=== PATIENT | female | born 1975 | race Caucasian/White ===

== ENCOUNTER 2020-05-08 06:06 | Day surgery (SDC) | payer OTHER, SELFPAY ==
[2020-05-01 20:06] VITALS: BMI 32.0
--- NOTE | 2020-05-05 11:09 | P.CONAN_ITS ---
Documented by User: Esther Alamo 05/05/20 11:10 HPI - Anesthesia Eval Consult details Narrative: 44yo F for donna lopez [facility] Past Medical History Medical History GERD (gastroesophageal reflux disease) Hypertension Rheumatoid arthritis Surgical History Surgical History deliv NOS-unsp History of lumpectomy of right breast Social History Social History Smoking Status: Never smoker Second Hand Smoke Exposure: No Use of substances other than those prescribed or required for medical reasons: No Advance Directives: No Advance Directives Information Provided: No Advance Directives on File: No Recently lost weight without trying: No Meds Allergies Allergy/AdvReac Type Severity Reaction Status Date / Time No Known Allergies Allergy Verified 05/01/20 20:04 Home Medications Medication Instructions Recorded Confirmed Type cholecalciferol (vitamin D3) 1 cap PO BEDTIME 05/01/20 05/01/20 History etanercept [Enbrel SureClick] 1 syringe SUBCUT QWEEK 05/01/20 05/01/20 History ferrous sulfate 1 tab PO DAILY 05/01/20 05/01/20 History lisinopril 1 tab PO DAILY 05/01/20 05/01/20 History Exam Exam Date and Time: May 05, 2020 1109 Height,Weight and Vital Signs: Height 5 ft 2 in Weight 79.379 kg Pertinent Lab Results Pertinent Lab Results: Laboratory Tests 02/07/20 02/07/20 08:08 08:08 WBC 7.2 Hgb 12.4 Hct 38.6 Plt Count 389 Sodium 138 Potassium 4.1 Chloride 104 BUN 11 Creatinine 0.74 Assessment and Plan Assessment Anesthesia Assessment: Chart Reviewed Documented by User: John Humphreys 05/08/20 07:24 [facility] Past Medical History Medical History GERD (gastroesophageal reflux disease) Hypertension Rheumatoid arthritis Surgical History Surgical History deliv NOS-unsp History of lumpectomy of right breast Social History Social History Smoking Status: Never smoker Second Hand Smoke Exposure: No Use of substances other than those prescribed or required for medical reasons: No Advance Directives: No Advance Directives Information Provided: No Advance Directives on File: No Recently lost weight without trying: No Meds Allergies Allergy/AdvReac Type Severity Reaction Status Date / Time No Known Allergies Allergy Verified 05/01/20 20:04 Home Medications Medication Instructions Recorded Confirmed Type cholecalciferol (vitamin D3) 1 cap PO BEDTIME 05/01/20 05/01/20 History etanercept [Enbrel SureClick] 1 syringe SUBCUT QWEEK 05/01/20 05/01/20 History ferrous sulfate 1 tab PO DAILY 05/01/20 05/01/20 History lisinopril 1 tab PO DAILY 05/01/20 05/01/20 History Exam Airway Mallampati Class: III TM Dist: >3cm Neck ROM: Full Heart: RRR Assessment and Plan Assessment Anesthesia Assessment: Anesthesia Plan Discussed Final Anesthetic Review NPO: Yes (Except meds) ASA Class: II Final Preanesthetic Review: Consent Obtained/Reviewed Anesthetic Plan Anesthetic Plan: GA Disposition: Standard PACU
[2020-05-08] VITALS (10 sets, daily range): BP systolic 120–150; BP diastolic 72–97; PULSE 79–98; RESP 16–18; TEMP 36.8–37; O2SAT 96–99
[2020-05-08 06:37] LABS: UPreg QC Valid YES; Urine Pregnancy NEGATIVE (NEGATIVE)
[2020-05-08] MEDS: Lactated Ringers 1,000 ML 100 ML IVCONT (06:49)
[2020-05-08] MEDS: Acetaminophen 325 MG TABLET 650 MG PO (06:50)
--- NOTE | 2020-05-08 07:13 | MHC.SHP ---
Pre-Procedural Eval Section A The patient is an INPATIENT: No Changes since office visit: No Cold of Flu in the past 2 weeks and No New Medical Problems The History & Physical has been completed within 30 days and I have reviewed it.: No Section B Chief Complaint: CHRONIC CHOLECYSTITIS Details of Present Illness: Abdominal pain in the right upper quadrant, heartburn; gallstones by ultrasound Relevant Family History (Specify if Yes): No Relevant Social History: None Present Medications: see Short Stay Collaborative assessment Medical History: No relevant PMH History of Previous Operations: No relevant previous surgery Allergies: Allergies Allergy/AdvReac Type Severity Reaction Status Date / Time No Known Allergies Allergy Verified 05/01/20 20:04 Review of Systems Sugical H&P ROS: Negative: Constitution, Cardiovascular, Respiratory, Neurological, Psychiatric, Genitourinary, Musculoskeletal, Integumentary and Endocrine and Yes, Specify: Gastrointestinal (abdominal pain) Exam Surgical H&P Exam: Normal: HEENT, Normal: Heart, Normal: Lungs, Normal: Extremities, Normal: Abdomen, Normal: Skin and Normal: Neurological Plan Diagnosis/Plan: Unchanged Patient has been examined and remains a candidate for the planned procedure
--- NOTE | 2020-05-08 09:03 | P.BOP_ITS ---
Brief Operative Note Date of procedure: 05/08/20 Pre-op diagnosis: Chronic cholecystitis, cholelithiasis Post-op diagnosis: same Procedure: Laparoscopic cholecystectomy Implants: none Surgeon: Chencho Choi MD Anesthesia: LOS Lacquer Pin Press Operator: Leatha Burt Estimated blood loss (mL): 20 Pathology: other (gallbladder) Condition: stable Disposition: PACU
--- NOTE | 2020-05-08 09:20 | P.OP_ITS ---
Operative Note Operative Note Narrative: Date of procedure: 05/08/20 Pre-op diagnosis: Chronic cholecystitis, cholelithiasis Post-op diagnosis: same Procedure: Laparoscopic cholecystectomy Indications for procedure: 44-year-old female presenting with complaints of abdominal pain in the right upper quadrant associated with fatty food intake. Workup with ultrasound of the abdomen revealed multiple gallstones within the gallbladder. Patient presents today for laparoscopic or possible open cholecystectomy Operative findings: Patient was found to have a distended gallbladder with multiple gallstones including the single gallstone lodged at the neck of the gallbladder. Findings were suggestive of chronic cholecystitis. Procedure details: Patient was brought to the OR placed in a supine position. After administering general anesthesia the patient's abdomen was prepped with ChloraPrep and draped in a sterile fashion. A surgical time-out was called and consent confirmed. Patient received preoperative antibiotics and Venodyne boots were placed. Local anesthesia consisting of 0.75% Sensorcaine with epinephrine was infiltrated in periumbilical region. A 5 mm incision was then made with the scalpel. A Veress needle was then inserted while elevating abdominal cavity with towel clips. After a positive drop test the abdomen was insufflated to a pressure 15 mm of mercury. Veress needle was then removed and a 5 mm trocar inserted. Camera was inserted in the abdomen explored. No injury was noted from the trocar insertion site. A 12 mm trocar was then placed in the epigastrium and 2 5 mm trocars placed in the right upper quadrant. Patient was placed in reverse Trendelenburg position rotated to the left. Gallbladder was grasped at the fundus retracted cephalad. Infundibulum was then identified and retracted away from the liver bed. Peritoneum was then taken down off the infundibulum to reveal the junction with the cystic duct. A cystic artery is noted posterior and lateral to the cystic duct. After obtaining a critical view the cystic duct was doubly clipped and divided. The cystic artery was doubly clipped and divided. A 2nd branch of the cystic artery was noted slightly medial and also doubly clipped and divided. The gallbladder was then dissected off the liver edge using electrocautery. Gallbladder was then placed in Endo-Catch bag and brought out through the epigastric incision. Wounds were then irrigated and suctioned dry. No bleeding or bile leak could be identified. CO2 was then evacuated. All trocars removed. No bleeding was noted from the trocar insertion sites. Fascia was closed at the epigastric incision using a [id number] 0 Polysorb suture. Skin was closed in all incisions using a subcuticular 4 0 Polysorb suture. Steri-Strips 2 x 2 gauze and Tegaderm were then applied. Patient tolerated the procedure well. Sponge, instrument, and needle counts reported as correct. The patient was transferred to PACU in stable condition. Implants: none Surgeon: Chencho Choi MD Anesthesia: GETA Hardboard Press Operator: none Estimated blood loss (mL): 20 Pathology: other (gallbladder) Condition: stable Disposition: PACU
[2020-05-08] MEDS: oxyCODONE HCl Immed Release 5 MG TABLET PO (09:32)
[2020-05-08] MEDS: ondansetron HCL 4 MG/2 ML VIAL IVPUSH (09:42)
== END 2020-05-08 11:45 | disposition home or self-care (01) ==
PROVIDERS: Nurse Practitioner; PCP Internal Medicine; Visit Provider Surgery
PROC: 0FT44ZZ Resection of Gallbladder, Percutaneous Endoscopic Approach (ICD-10-PCS; CPT 47562; principal; 2020-05-08 07:30)
DX: K80.10 Calculus of gallbladder with chronic cholecystitis without obstruction (principal); K21.9 Gastro-esophageal reflux disease without esophagitis; M06.9 Rheumatoid arthritis, unspecified; I10 Essential (primary) hypertension; Z79.899 Other long term (current) drug therapy
CPT/HCPCS: 47562; 81025; 88304; J0330; J1100; J2250; J2405; J3010

== ENCOUNTER → 2020-05-17 09:49 | Outpatient (BNVA) | payer OTHER, SELFPAY | PROVIDERS: PCP Internal Medicine; Visit Provider Surgery | DX: Z09 Encounter for follow-up examination after completed treatment for conditions other than malignant neoplasm (principal); Z87.19 Personal history of other diseases of the digestive system; Z90.49 Acquired absence of other specified parts of digestive tract | CPT/HCPCS: 99212 ==

== ENCOUNTER 2020-05-23 15:37 | Outpatient (REF) | payer OTHER, SELFPAY ==
--- NOTE | 2020-05-23 | MM_ITS ---
EXAMINATION: MM SCREENING DIGITAL BREAST TOMOSYNTHESIS, BILATERAL CLINICAL INFORMATION: Screening. Asymptomatic. The lifetime risk of breast cancer based on the Tyrer-Cuzick Model is 9%. COMPARISON: Mammography: 04/28/2019, 04/22/2018, 04/11/2017, 03/27/2016, 10/02/2012, 09/25/2012. TECHNIQUE: Digital breast tomosynthesis is performed in both the craniocaudal and mediolateral oblique views along with computer-aided detection (CAD). Synthesized 2D images are generated from the tomosynthesis. FINDINGS: The breasts are heterogeneously dense, which may obscure small masses (ACR BI-RADS breast composition Category c). The right MLO view has nodule extending beyond field of view 13 cm from the nipple 9:30 o'clock position, likely low axillary node not previously imaged. The remainder of the breasts are unremarkable with no mass or architectural abnormality. There are some scattered punctate round calcifications again seen anterior outer breast, greater on right. No significant change. MM/MM tomosynthesis screening BI IMPRESSION: 1. Right: Probable low right axillary tail node on MLO view posterior 9:30 o'clock position, not previously imaged. 2. Left: No mammographic evidence of malignancy. ASSESSMENT: BI-RADS 0: Incomplete - Need Additional Imaging Evaluation RECOMMENDATION: 1. Targeted ultrasound right breast. 2. Radiology department staff will contact the patient for additional imaging. This patient's information was entered into a reminder system with a target due date for their next mammogram.
== END 2020-05-23 15:38 | disposition home or self-care (01) ==
LOC: HO.MAMMO 15:37
PROVIDERS: PCP Internal Medicine; Visit Provider Internal Medicine
DX: Z12.31 Encounter for screening mammogram for malignant neoplasm of breast (principal)
CPT/HCPCS: 77063; 77067

== ENCOUNTER 2020-06-07 13:48 | Outpatient (REF) | payer OTHER, SELFPAY ==
--- NOTE | 2020-06-07 | US_ITS ---
EXAMINATION: US DIAGNOSTIC ULTRASOUND BREAST, RIGHT CLINICAL INFORMATION: Recall from screening for smooth nodule posterior right breast 13 cm from nipple near low axillary tail. COMPARISON: Mammography 05/23/2020, , 04/22/2018, 04/11/2017, 03/27/2016, 10/02/2012, 09/25/2012. TECHNIQUE: Ultrasound right breast is targeted to the posterior upper outer quadrant. Grayscale imaging and color Doppler are performed without and with harmonics. FINDINGS: There is no lymphadenopathy demonstrated. There is no cystic or solid mass or no demonstrated in the expected area based on the recent mammography. More anteriorly, there are 2 small simple cysts 10:00 position 8 cm from nipple, each around 5 mm. There is also a 5 mm acorn cyst of apocrine metaplasia same area. No color flow. No solid mass or architectural abnormality. Preliminary results are discussed with patient at time of visit. The finding with mammography if not seen with certainty on prior studies, possibly beyond field of view. There is no ultrasound correlate. As a precaution, short interval six-month follow-up right mammography will be requested. US/US breast RT limited IMPRESSION: 1. No lymphadenopathy or cystic or solid mass in targeted area. 2. There are several small cysts mid right breast 10:00 position, anterior to the mammographic concern. ASSESSMENT: BI-RADS 3: Probably Benign RECOMMENDATION: Diagnostic right mammography in 6 months. This patient's information was entered into a reminder system with a target due date for their next mammogram.
== END 2020-06-07 13:49 | disposition home or self-care (01) ==
LOC: HO.MAMMO 13:48
PROVIDERS: PCP Internal Medicine; Visit Provider Internal Medicine
DX: N60.01 Solitary cyst of right breast (principal)
CPT/HCPCS: 76642

== ENCOUNTER 2020-10-17 11:48 | Outpatient (REF) | payer OTHER, SELFPAY ==
[2020-10-17 12:03] LABS: Glucose Urine UA NEG (NEG); Leukocyte Esterase Urine NEG (NEG); Nitrite Urine NEG (NEG); Urine Blood NEG (NEG); Urine Ketones NEG (NEG); Urine Protein NEG (NEG-TRACE)
[2020-10-17 12:05] LABS: Appearance Urine CLEAR; Color Urine YELLOW
== END 2020-10-17 11:49 | disposition home or self-care (01) ==
LOC: HO.LNP 11:48
PROVIDERS: Visit Provider Internal Medicine
DX: R35.0 Frequency of micturition (principal)
CPT/HCPCS: 81003

== ENCOUNTER 2020-10-18 08:17 | Outpatient (REF) | payer OTHER, SELFPAY ==
[2020-10-18 11:28] LABS: Hematocrit 36.4 % (37-47); Hemoglobin 11.7 g/dl (12.0-16.0); Mean Corpuscular HGB Conc 32.1 g/dl (31.0-35.0); Mean Corpuscular Hemoglobin 31.2 pg (27.0-33.0); Mean Corpuscular Volume 97.1 fL (80-98); Mean Platelet Volume 11.3 fL (9.4-12.3); Platelet Count 354 X10*3/uL (160-400); Red Blood Count 3.75 X10*6/uL (4.20-5.50); Red Cell Distribution Width 11.7 % (11.0-16.0)
[2020-10-18 12:18] LABS: Alanine Aminotransferase 39 U/L (0-31); Albumin Level 4.3 g/dL (3.5-5.0); Alkaline Phosphatase 58 U/L (39-117); Anion Gap 12 (12-20); Aspartate Amino Transferase 26 U/L (5-31); Bilirubin Total 0.7 mg/dL (0.0-1.0); Blood Urea Nitrogen 16 mg/dL (9-16); Calcium 9.4 mg/dL (8.4-10.2); Carbon Dioxide 23 mmol/L (22-29); Chloride 106 mmol/L (96-108); Cholesterol 195 mg/dL; Estimated Glomerular Filt Rate > 60; Glucose Fasting 95 mg/dL (60-99); HDL Cholesterol 48 mg/dL; LDL Cholesterol Calculated 122 mg/dl; Potassium 4.3 mmol/L (3.3-5.1); Sodium 137 mmol/L (135-145); Total Protein 8.1 g/dL (6.5-8.0); Triglycerides 128 mg/dL
[2020-10-18 12:39] LABS: TSH reflex Free T4 1.77 uIU/mL (0.32-4.0)
== END 2020-10-18 08:18 | disposition home or self-care (01) ==
LOC: HO.HMGCLDS 08:17
PROVIDERS: PCP Internal Medicine; Visit Provider Internal Medicine
DX: Z00.00 Encounter for general adult medical examination without abnormal findings (principal); I10 Essential (primary) hypertension; K21.9 Gastro-esophageal reflux disease without esophagitis; M06.9 Rheumatoid arthritis, unspecified
CPT/HCPCS: 36415; 80053; 80061; 84443; 85027

== ENCOUNTER 2020-12-06 12:44 | Outpatient (REF) | payer OTHER, SELFPAY ==
--- NOTE | ~2020-12-06 | MM_ITS ---
EXAMINATION: MM DIAGNOSTIC DIGITAL BREAST TOMOSYNTHESIS, RIGHT CLINICAL INFORMATION: Short interval six-month follow-up probable low right axillary tail node noted on prior imaging. TC score is 7%. COMPARISON: Mammography: 05/23/2020, 04/28/2019, 04/22/2018, right breast ultrasound 06/07/2020 TECHNIQUE: Digital breast tomosynthesis is performed in both the craniocaudal and mediolateral oblique views along with computer-aided detection (CAD). Synthesized 2D images are generated from the tomosynthesis. Additional exaggerated right CC view is provided. FINDINGS: The breasts are heterogeneously dense, which may obscure small masses (ACR BI-RADS breast composition Category c). Parenchymal pattern is similar to prior studies. There is no developing density or interval mass or architectural abnormality or abnormal calcifications. The nodularity overlying the posterior outer right breast is circumscribed and stable in size. There is subtle internal fatty tissue composition on tomography, consistent with benign node as previously suggested. Results are provided to the patient at time of visit by the technologist. MM/MM tomosynthesis diagnostic RT IMPRESSION: Stable nodule posterior outer right breast consistent with node on tomography. ASSESSMENT: BI-RADS 2: Benign RECOMMENDATION: Routine annual mammography screening, due in 6 months. This patient's information was entered into a reminder system with a target due date for their next mammogram.
== END 2020-12-06 12:45 | disposition home or self-care (01) ==
LOC: HO.MAMMO 12:44
PROVIDERS: Visit Provider Internal Medicine
DX: N63.31 Unspecified lump in axillary tail of the right breast (principal)
CPT/HCPCS: 77061; 77065

== ENCOUNTER 2021-02-09 11:22 | Outpatient (REF) | payer OTHER, SELFPAY ==
--- NOTE | ~2021-02-09 | US_ITS ---
EXAMINATION: US PELVIS LIMITED (BLADDER) CLINICAL INFORMATION: Difficulty micturition. COMPARISON: None TECHNIQUE: Real-time imaging of the bladder. FINDINGS: BLADDER: Well distended and normal. No bladder wall thickening or echogenic stones seen. Bilateral ureteral jets are demonstrated. Prevoid bladder volume is 331 mL. Postvoid bladder volume is 55 mL. US/US bladder IMPRESSION: Small to moderate postvoid residual bladder wall. Normal bilateral ureteral jets seen.
== END 2021-02-09 11:23 | disposition home or self-care (01) ==
LOC: HO.HMGCX 11:22
PROVIDERS: PCP Internal Medicine; Visit Provider Internal Medicine
DX: N20.0 Calculus of kidney (principal)
CPT/HCPCS: 76857

== ENCOUNTER 2021-02-15 12:46 | Outpatient (REF) | payer OTHER, SELFPAY ==
[2021-02-17 21:26] LABS: TS Negative Control Passed; TS Panel A 2; TS Panel B 2; TS Positive Control Passed; TSpotTB Negative (SeeBelow)
== END 2021-02-15 12:47 | disposition home or self-care (01) ==
LOC: HO.HMGCLDS 12:46
PROVIDERS: PCP Internal Medicine; Visit Provider Internal Medicine
DX: Z11.1 Encounter for screening for respiratory tuberculosis (principal)
CPT/HCPCS: 36415; 86481

== ENCOUNTER → 2021-03-13 09:21 | Outpatient (BNVA) | payer OTHER, SELFPAY | PROVIDERS: PCP Internal Medicine; Visit Provider Dietitian, Registered | DX: E66.9 Obesity, unspecified (principal) | CPT/HCPCS: 97802 ==

== ENCOUNTER 2021-06-08 13:14 | Outpatient (REF) | payer OTHER, SELFPAY ==
--- NOTE | ~2021-06-08 | MM_ITS ---
EXAMINATION: MM SCREENING DIGITAL BREAST TOMOSYNTHESIS, BILATERAL CLINICAL INFORMATION: Screening. Asymptomatic. The lifetime risk of breast cancer based on the Tyrer-Cuzick Model is 9%. COMPARISON: Mammography: 12/06/2020, 05/23/2020, 04/28/2019 TECHNIQUE: Digital breast tomosynthesis is performed in both the craniocaudal and mediolateral oblique views along with computer-aided detection (CAD). Synthesized 2D images are generated from the tomosynthesis. FINDINGS: The breasts are heterogeneously dense, which may obscure small masses (ACR BI-RADS breast composition Category c). There is no significant mass. No developing density or architectural abnormality. Smooth nodularity mid 12:00 left breast and posterior lower left breast are stable. There are some punctate calcifications again seen anterior outer breast. The axilla and skin contours are unremarkable. No significant changes. MM/MM tomosynthesis screening BI IMPRESSION: No mammographic evidence of malignancy. ASSESSMENT: BI-RADS 2: Benign RECOMMENDATION: Routine annual mammography screening. This patient's information was entered into a reminder system with a target due date for their next mammogram.
== END 2021-06-08 13:15 | disposition home or self-care (01) ==
LOC: HO.MAMMO 13:14
PROVIDERS: Visit Provider Internal Medicine
DX: N63.25 Unspecified lump in the left breast, overlapping quadrants (principal)
CPT/HCPCS: 77063; 77067

== ENCOUNTER 2021-09-10 15:00 | Outpatient (RCR) | payer OTHER, SELFPAY ==
--- NOTE | 2021-08-16 15:39 | MHC.PT.EP ---
[facility] [place] Office [place] Office [place] Office [address] [place] [address] [phone] F: [phone] F: [phone] F: [phone] F: [phone] Physical Therapy Plan of Care Date of Evaluation: Date of Surgery: n/a Diagnosis: cervicalgia Assessment: Patient is a 45 year old female presenting to PT with complaints of pain in her neck. Pt reports onset of pain began about 1 year ago due to insidious onset. She presents today with impairments in pain, cervical ROM, posture, and TTP to suboccipitals and R UT. 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 Pt expresses custodial goal of reducing pain, and is motivated to work towards this in PT. Clinical presentation today is most consistent with signs and sx associated with possible cervicalgia and pt will benefit from skilled PT to address the following problems and impairments noted upon evaluation: pain, cervical ROM, posture, and TTP to suboccipitals and R UT. These problems limit the patient with the following functional activities: ADLs, work, lifting. The prescribed treatment plan of care is medically necessary. Co-morbidities of HTN and rheumatoid arthritis were identified and taken into considerations of plan of care. Pt was educated on HEP, role of PT, prognosis, POC. Frequency and Duration: The patient will be seen 2 x week x 4 weeks Short Term Goals: Pt will demonstrate improved cervical ROM in available range with min to no pain in 2 weeks. Pt will demonstrate good DNF strength as evidence by good muscle recruitment with chin tuck in 2 weeks. Pt will demonstrate improved postural awareness by sitting with biomechanically correct posture without cues throughout session to improve overall postural function in 2 weeks. Food And Beverage Associate Goals: Pt will demonstrate ability to complete ADLs with min to no pain in 4 weeks for return to PLOF. Pt will demonstrate ability to work with min to no pain in 4 weeks for return to PLOF. Pt will demonstrate ability to lift groceries with min to no pain in 4 weeks for improved tolerance to roll at home. Treatment Plan: Modalities to reduce pain, spasms and effusion. Manual therapy to restore motion and function. Therapeutic exercise to improve strength and flexibility. Neuromuscular re-education for posture and balance. Therapeutic activities to return to functional activities of daily living. Electronically signed by: Izzy Vaca PT, DPT, ATC Please sign and return to therapist. Thank you for your referral.
--- NOTE | 2021-10-12 11:09 | MHC.PT.DC ---
[facility] [place] Office [place] Office [place] Office [address] [place] [address] [phone] F: [phone] F: [phone] F: [phone] F: [phone] Physical Therapy Discharge Report Diagnosis: cervicalgia Date of Surgery: n/a Date of Evaluation: 08/16/21 Date of Discharge: 10/12/21 Treatments to Date: 4 Cancellations to Date: 2 No Shows to Date: 1 Discharge Status: Visit Non-compliance Discharge Summary: Pt no showed her final appointment and has not reached out in >30 days. Pt POC at this time. Electronically signed by: Izzy Vaca, PT, DPT, ATC Please sign and return to therapist. Thank you for your referral.
== END 2021-10-12 11:09 | disposition home or self-care (01) ==
LOC: HO.PTCHIC 15:00
PROVIDERS: PCP Internal Medicine; Visit Provider Internal Medicine
DX: M54.2 Cervicalgia (principal)
CPT/HCPCS: 97110; 97140; 97161

== ENCOUNTER 2022-06-09 03:26 | Emergency (ER) | payer OTHER, SELFPAY ==
--- NOTE | ~2022-06-09 | XR_ITS ---
EXAMINATION: XR CHEST CLINICAL INFORMATION: Cough, fever. COMPARISON: 10/11/2018 TECHNIQUE: 2 views of the chest were obtained. FINDINGS: Lungs are well-inflated. Trachea is midline in position. Subtle mild patchy airspace opacity is observed in the right upper lobe. No pleural effusion or pneumothorax. Cardiac silhouette and pulmonary vessels are normal in size. The mediastinum and rossana have normal contour. The visualized bones, and upper abdomen, are unremarkable. XR/XR chest 2V IMPRESSION: Mild patchy airspace opacity in the right upper lobe is suspicious for pneumonia. Otherwise, lungs are unremarkable.
[2022-06-09 03:35] VITALS: BP 140/82; PULSE 78; RESP 18; TEMP 36.9; O2SAT 98; BMI 32.9
[2022-06-09 04:23] LABS: Influenza A PCR NEGATIVE (Negative); Influenza B PCR NEGATIVE (Negative); Resp Syncy Virus RNA Qual PCR POSITIVE (Negative); SARS COV2 PCR INHOUSE NEGATIVE (Negative)
[2022-06-09 06:31] VITALS: BP 134/69; PULSE 74; RESP 20; TEMP 36.7; O2SAT 98
--- NOTE | 2022-06-09 07:14 | ED_ITS ---
HPI - URI/Sore Throat General Chief Complaint: Upper Respiratory Symptoms Stated Complaint: congestion Time Seen by Provider: 06/09/22 06:33 Source: patient Mode of arrival: ambulatory Limitations: no limitations History of Present Illness HPI Narrative: 46-year-old female with no significant medical history presents to the emergency department today MD elicited complaint: fever, cough, sore throat, rhinorrhea and nasal congestion Onset (ago): day(s) Consistency: constant and progressively worsening Severity: moderate Related Data Home Medications Medication Instructions Recorded Confirmed etanercept 50 mg/mL (1 mL) 1 syringe subcut QWEEK 05/01/20 08/01/21 subcutaneous pen injector (Enbrel SureClick) Previous Rx's Medication Instructions Recorded pantoprazole 40 mg tablet,delayed 40 mg PO DAILY #90 tabs 07/31/20 release ketoconazole 2 % topical cream 1 appl topical DAILY #60 grams 08/01/21 lisinopril 5 mg tablet 5 mg PO DAILY #90 tabs 11/09/21 cholecalciferol (vitamin D3) 50 50 mcg PO BEDTIME #90 caps 11/15/21 mcg (2,000 unit) capsule ferrous sulfate 325 mg (65 mg 325 mg PO DAILY #90 tabs 02/26/22 iron) tablet azithromycin 250 mg tablet See Rx Instructions PO .COMPLEX #6 06/09/22 (Zithromax Z-Addi) tabs Allergies Allergy/AdvReac Type Severity Reaction Status Date / Time No Known Allergies Allergy Verified 06/09/22 03:39 Review of Systems Constitutional: Constitutional: Denies chills, Reports fever(s) and Reports headache(s) Eyes: Eyes: Reports eye discharge ( watery) ENT: Denies facial pain, Reports headache(s), Reports nasal congestion and Reports nasal discharge Cardiovascular: Cardiovascular: Denies chest pain, Denies palpitations and Denies dyspnea Respiratory: Respiratory: Reports cough and Denies dyspnea Gastrointestinal: Gastrointestinal: Denies diarrhea, Denies nausea and Denies vomiting Neurologic: Reports system reviewed and no additional complaints, except as documented, Denies Abnormal speech present, Reports headache(s) and Denies Sensory deficit (Neuro) Endocrine: Endocrine: Denies palpitations PMFSH Past Medical History Medical History Anemia Annual physical exam GERD (gastroesophageal reflux disease) Hypertension Neck pain Nephrolithiasis Overweight Rheumatoid arthritis Urinary frequency Surgical History deliv NOS-unsp Chronic cholecystitis due to cholelithiasis with choledocholithiasis History of arthroscopy of right knee History of section History of laparoscopic cholecystectomy (05/08/20) History of lumpectomy of right breast Family History Family History Father No problems noted. Mother HTN (hypertension) Osteoarthritis Brother No problems noted. Sister No problems noted. Sister No problems noted. Son No problems noted. Son No problems noted. Son No problems noted. Social History Social History Housing: House Patient Tobacco Use Status: Never used Tobacco e-Cigarette/Vaping Use: Never Used Second Hand Smoke Exposure: No Advance Directives: No Advance Directives Information Provided: No Current 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 status: employed Physical Exam Vital Signs: Vital Signs: Last Vital Signs Temp 98.1 F 06/09/22 06:31 Pulse 74 06/09/22 06:31 Resp 20 06/09/22 06:31 BP 134/69 06/09/22 06:31 Pulse Ox 98 06/09/22 06:31 O2 Del Method 06/09/22 06:31 BMI result Body Mass Index 32.9 afebrile, vital signs stable and normal Const: General: cooperative, healthy appearing and no acute distress Nutritional Appearance: overweight Orientation/consciousness: patient oriented x3 HEENT: Head: Yes normal to inspection, Yes normocephalic and Yes atraumatic Ears: external ears normal General nose exam: Normal external nose present Face and sinus: Yes normal facial exam Mouth: Normal oral and palatal mucosa present Eyes: Eyelids: Yes eyelids normal Conjunctivae: conjunctivae normal Sclerae: sclerae normal Pupils: Equal, round and reactive pupils present EOM: EOMs intact bilaterally Neck: Neck: Yes normal visual inspection and Yes full ROM Resp: Effort & Inspection: normal respiratory effort and no cough Auscultation: clear to auscultation bilaterally, no crackles, no rales, no rhonchi and no wheezes Cardio: Rate: regular rate Rhythm: regular rhythm Skin: General skin exam: no rashes or lesions noted, no mottling and no pallor Rashes: no rashes Neuro: General: patient oriented x3 Cranial nerves: Yes CN's II-XII intact bilaterally and Yes Equal, round and reactive pupils present Speech: No Abnormal speech present Gait exam (Neuro): Normal gait present Motor exam (neuro): 5/5 motor strength present throughout Sensory Exam: No Sensory deficit (Neuro) MDM - URI/Sore Throat MDM Narrative Medical decision making narrative: 46-year-old female with URI symptoms for several days. RSV positive. X-ray does show a small area of opacification in the right upper lobe which potentially could be pneumonia. Will treat with antibiotics, although this is most likely a spurious finding. Patient will be discharged home advised to follow-up with her primary care doctor on Friday Lab Data Attestation: I reviewed the patient's lab results. Lab results narrative: positive RSV Labs: Lab Results 06/09/22 Range/Units 03:41 Influenza Type A (PCR) NEGATIVE (Negative) Influenza Type B (PCR) NEGATIVE (Negative) RSV RNA Qual (PCR) POSITIVE A (Negative) SARS-CoV-2 RNA (RT-PCR) NEGATIVE (Negative) Imaging Data Chest x-ray: Attestation: I personally reviewed and interpreted this imaging study as follows: My impression: an area of haziness is noted in the right upper lobe, otherwise normal chest x- ray Radiologist's impression: IMPRESSION: Mild patchy airspace opacity in the right upper lobe is suspicious for pneumonia. Otherwise, lungs are unremarkable Discharge Plan Discharge Clinical Impression: Pneumonia of right upper lobe due to infectious organism, RSV (respiratory syncytial virus infection) Upper respiratory infection Qualifiers: Pharyngitis/tonsillitis etiology: other specified organisms Patient Disposition: Home, Self-Care Instructions: Community Acquired Pneumonia (ED), Viral Syndrome (ED) Prescriptions: New azithromycin [Zithromax Z-Addi] 250 mg tablet See Rx Instructions .ROUTE .COMPLEX Qty: 6 0RF Rx Instructions: take 500 mg today (day 1), then 250 mg for 4 days (days 2-5) No Action lisinopril 5 mg tablet 5 mg PO DAILY Qty: 90 3RF cholecalciferol (vitamin D3) 50 mcg (2,000 unit) capsule 50 mcg PO BEDTIME Qty: 90 3RF ferrous sulfate 325 mg (65 mg iron) tablet 325 mg PO DAILY Qty: 90 3RF Enbrel SureClick 50 mg/mL (1 mL) pen injector 1 syringe subcut QWEEK pantoprazole 40 mg tablet,delayed release (DR/EC) 40 mg PO DAILY Qty: 90 3RF ketoconazole 2 % cream 1 appl topical DAILY Qty: 60 3RF
== END 2022-06-09 08:00 | disposition home or self-care (01) ==
PROVIDERS: Emergency Provider Emergency Medicine; PCP Internal Medicine
DX: J12.1 Respiratory syncytial virus pneumonia (principal); J02.9 Acute pharyngitis, unspecified; Z20.822 Contact with and (suspected) exposure to COVID-19
CPT/HCPCS: 0241U; 71046; 99283

== ENCOUNTER 2022-07-02 15:20 | Outpatient (REF) | payer OTHER, SELFPAY ==
--- NOTE | ~2022-07-02 | MM_ITS ---
EXAMINATION: MM SCREENING DIGITAL BREAST TOMOSYNTHESIS, BILATERAL CLINICAL INFORMATION: Screening. Asymptomatic. The lifetime risk of breast cancer based on the Tyrer-Cuzick Model is 8.2%. COMPARISON: Mammography: June 08, 2021 and studies dating to March 27, 2016 TECHNIQUE: Digital breast tomosynthesis is performed in both the craniocaudal and mediolateral oblique views along with computer-aided detection (CAD). Synthesized 2D images are generated from the tomosynthesis. FINDINGS: The breasts are extremely dense, which lowers the sensitivity of mammography (ACR BI-RADS breast composition Category d). There are no significant masses, abnormal calcifications, or other abnormalities. MM/MM tomosynthesis screening BI IMPRESSION: No significant changes from prior exam. ASSESSMENT: BI-RADS 1: Negative RECOMMENDATION: Routine annual mammography screening. This patient's information was entered into a reminder system with a target due date for their next mammogram.
== END 2022-07-02 15:21 | disposition home or self-care (01) ==
LOC: HO.MAMMO 15:20
PROVIDERS: PCP Internal Medicine; Visit Provider Internal Medicine
DX: Z12.31 Encounter for screening mammogram for malignant neoplasm of breast (principal)
CPT/HCPCS: 77063; 77067

== ENCOUNTER 2023-01-15 07:53 | Outpatient (REF) | payer OTHER, SELFPAY ==
[2023-01-15 11:13] LABS: MANUAL DIFF FLAG NO
[2023-01-15 11:33] LABS: Basophils Absolute Auto 0.1 X10*3/uL (0.0-0.2); Basophils Percent Auto 0.8 % (0-2); Eosinophils Absolute Auto 0.2 X10*3/uL (0.0-0.4); Eosinophils Percent Auto 2.1 % (0-4); Hematocrit 38.2 % (37.0-47.0); Hemoglobin 12.7 g/dl (12.0-16.0); Imm Gran Abs Auto 0.02 X10*3/uL (0.00-0.03); Imm Gran Pct Auto 0.3 % (0.0-0.4); Lymphocytes Absolute Auto 2.7 X10*3/uL (1.2-4.9); Mean Corpuscular HGB Conc 33.2 g/dl (31.0-35.0); Mean Corpuscular Hemoglobin 31.7 pg (27.0-33.0); Mean Corpuscular Volume 95.3 fL (80.0-98.0); Mean Platelet Volume 11.7 fL (9.4-12.3); Monocytes Absolute Auto 0.7 X10*3/uL (0.1-1.2); Monocytes Percent Auto 10.5 % (2-11); Neutrophils Absolute Auto 3.4 x10*3/uL (2.0-8.3); Neutrophils Percent Auto 48.3 % (45-73); Platelet Count 287 X10*3/uL (160-400); Red Blood Count 4.01 X10*6/uL (4.20-5.50); Red Cell Distribution Width 11.4 % (11.0-16.0); White Blood Count 7.1 X10*3/uL (4.8-10.8)
[2023-01-15 12:39] LABS: Alanine Aminotransferase 35 U/L (0-31); Albumin Level 4.1 g/dL (3.5-5.0); Alkaline Phosphatase 53 U/L (39-117); Anion Gap 13 (12-20); Aspartate Amino Transferase 27 U/L (5-31); Bilirubin Total 1.2 mg/dL (0.0-1.0); Blood Urea Nitrogen 12 mg/dL (9-16); Calcium 9.6 mg/dL (8.4-10.2); Carbon Dioxide 23 mmol/L (22-29); Chloride 106 mmol/L (96-108); Cholesterol 200 mg/dL; Estimated Glomerular Filt Rate > 60; Glucose Fasting 102 mg/dL (60-99); HDL Cholesterol 51 mg/dL; Iron 148 mcg/dL (30-160); LDL Cholesterol Calculated 126 mg/dl; Percent Iron Saturation 47 % (15-50); Potassium 3.9 mmol/L (3.3-5.1); Sodium 138 mmol/L (135-145); Total Iron Binding Capacity 313 mcg/dL (228-428); Triglycerides 118 mg/dL; Unsaturated Iron Binding 165 ug/dL
== END 2023-01-15 07:54 | disposition home or self-care (01) ==
LOC: HO.HMGCLDS 07:53
PROVIDERS: PCP Internal Medicine; Visit Provider Internal Medicine
DX: Z00.00 Encounter for general adult medical examination without abnormal findings (principal); D64.9 Anemia, unspecified; I10 Essential (primary) hypertension; M06.9 Rheumatoid arthritis, unspecified
CPT/HCPCS: 36415; 80053; 80061; 82306; 83540; 85025

== ENCOUNTER 2023-02-17 08:33 | Outpatient (AMB) | payer OTHER, SELFPAY ==
[2023-02-17 09:00] VITALS: BP 122/72; PULSE 74; TEMP 36.6; O2SAT 97; BMI 37.1
--- NOTE | 2023-02-17 09:00 | MHC.OFFWIV ---
Intake Vital Signs 02/17/23 09:00 Height 5 ft 2 in Weight 203 lb BMI 37.1 BP 122/72 Blood Pressure Location Lt brachial Position Sitting Pulse 74 Pulse Source Pulse Oximeter Temp 97.9 F Temp Source Temporal Artery Scan Pulse Oximetry (%) 97 Intake Visit Reasons: EP, Right Side Rib Pain Intake Note: pt is here for c/o upper rib pain that travels to lower back for the last week Patient Tobacco Use Status: Never used Tobacco Allergies No Known Allergies Allergy (Verified 02/17/23 09:33) Medication List - Last Reconciled 02/17/23 by Obie Mahmood MD cholecalciferol (vitamin D3) 50 mcg PO BEDTIME etanercept (Enbrel SureClick) 1 syringe subcut QWEEK ferrous sulfate 325 mg PO DAILY ibuprofen 800 mg PO TID PRN lisinopril 5 mg PO DAILY pantoprazole 40 mg PO DAILY Do you need a note to return to daycare/school/sports/work: Yes HPI EP, Right Side Rib Pain HPI Details 47-year-old female presents to the office for a sick visit. Patient is complaining of pain on the right side of her ribs for the past week. The pain is continues and worsens on stretching or bending sideways. Inspiration also increases her pain. No fevers or chills. PFSH Medical History Anemia Annual physical exam GERD (gastroesophageal reflux disease) Hypertension Neck pain Nephrolithiasis Overweight Rheumatoid arthritis Urinary frequency Surgical History deliv NOS-unsp Chronic cholecystitis due to cholelithiasis with choledocholithiasis History of arthroscopy of right knee History of section History of laparoscopic cholecystectomy (05/08/20) History of lumpectomy of right breast Family History Father No problems noted. Mother HTN (hypertension) Osteoarthritis Brother No problems noted. Sister No problems noted. Sister No problems noted. Son No problems noted. Son No problems noted. Son No problems noted. Social History Housing: House Patient Tobacco Use Status: Never used Tobacco e-Cigarette/Vaping Use: Never Used Second Hand Smoke Exposure: No Current 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 status: employed Cognitive needs: No Hearing needs: No Vision needs: Yes Physical Exam Vital Signs: Last Vital Signs Temp 97.9 F 02/17/23 09:00 Pulse 74 02/17/23 09:00 BP 122/72 02/17/23 09:00 Pulse Ox 97 02/17/23 09:00 BMI result Body Mass Index 37.1 Const General: cooperative and healthy appearing Nutritional Appearance: well nourished Orientation/consciousness: patient oriented x3 Limitations: no limitations HEENT Head: Yes normal to inspection Eyes General: appearance normal, both eyes and all related structures Neck Neck: Yes normal visual inspection Chest Other: No visible bruising or swelling. Minimal discomfort over the intercostal space between 8 and 9 ribs. Resp Effort & Inspection: normal respiratory effort Neuro General: patient oriented x3 Assessment & Plan Assessment & Plan (1) Chest wall contusion: Code(s): S20.219A - Contusion of unspecified front wall of thorax, initial encounter Plan: Symptoms are of muscular etiology. Cyclobenzaprine added to the regimen. If symptoms do not improve to follow-up here. Continue Motrin that she is taking at home. Coding Level of Care Code Est Pt Level 4 (62409) Diagnoses Chest wall contusion S20.219A
== END 2023-02-17 09:50 | disposition home or self-care (01) ==
PROVIDERS: PCP Internal Medicine; Visit Provider Internal Medicine
DX: S20.219A Contusion of unspecified front wall of thorax, initial encounter (principal)
CPT/HCPCS: 99214

== ENCOUNTER 2023-07-08 15:24 | Outpatient (REF) | payer OTHER, SELFPAY ==
--- NOTE | ~2023-07-08 | MM_ITS ---
EXAMINATION: MM SCREENING DIGITAL BREAST TOMOSYNTHESIS, BILATERAL CLINICAL INFORMATION: Screening. Asymptomatic. COMPARISON: Mammography: 07/02/2022, 06/08/2021, and studies dating to 03/27/2016. TECHNIQUE: Digital breast tomosynthesis is performed in both the craniocaudal and mediolateral oblique views along with computer-aided detection (CAD). Synthesized 2D images are generated from the tomosynthesis. In addition to standard views, additional bilateral 3-D MLO views were obtained for anterior compression and nipple in profile. FINDINGS: The breasts are heterogeneously dense, which may obscure small masses (ACR BI-RADS breast composition Category c). There are a few scattered benign type calcifications in both breasts. There is no suspicious grouping or aggressive change. There are 2 stable oval circumscribed masses in the left breast upper outer quadrant, unchanged from 2020 and thus benign. Circumscribed masses in the right breast at the 10:00 axis and upper outer quadrant also present. These are consistent with cysts and/or fibroadenomas. These are benign. No new mass, suspicious calcifications, or areas of architectural distortion identified. No skin or axillary region abnormalities. MM/MM tomosynthesis screening BI IMPRESSION: No mammographic evidence of malignancy. Stable benign findings both breasts as detailed. ASSESSMENT: BI-RADS BI-RADS 2 - Benign Findings RECOMMENDATION: Routine annual mammography screening. 1 year F/U This examination should not preclude the clinical evaluation of a suspicious palpable abnormality. This patient's information was entered into a reminder system with a target due date for their next mammogram.
== END 2023-07-08 15:25 | disposition home or self-care (01) ==
LOC: HO.MAMMO 15:24
PROVIDERS: PCP Internal Medicine; Visit Provider Internal Medicine
DX: Z12.31 Encounter for screening mammogram for malignant neoplasm of breast (principal)
CPT/HCPCS: 77063; 77067

== ENCOUNTER → 2023-07-08 15:45 | Outpatient (BNV) | payer OTHER, SELFPAY | PROVIDERS: PCP Internal Medicine; Visit Provider Radiology Diagnostic Radiology | DX: Z12.31 Encounter for screening mammogram for malignant neoplasm of breast (principal) | CPT/HCPCS: 77063; 77067 ==

== ENCOUNTER 2023-07-22 12:21 | Outpatient (AMB) | payer OTHER, SELFPAY ==
--- NOTE | 2023-07-22 12:23 | AM.OFFWIN_ITS ---
Intake Vital Signs 07/22/23 12:24 Height 5 ft 2 in Weight 204 lb BMI 37.3 BP 130/88 Blood Pressure Location Lt brachial Position Sitting Pulse 88 Pulse Source Pulse Oximeter Temp 97.3 F Temp Source Temporal Artery Scan Pulse Oximetry (%) 97 Oxygen Delivery Method Room Air Intake Visit Reasons: EP low abdominal pain Intake Note: pt is here today for low abdominal pain started 1 week ago Patient Tobacco Use Status: Never used Tobacco Allergies No Known Allergies Allergy (Verified 07/22/23 12:36) Do you need a note to return to daycare/school/sports/work: No HPI HPI Comments History of Present Illness Details Patient is a 47-year-old female in today for a sick visit. She is offering complaints of suprapubic pain, which radiates to her right flank times 6 days. Patient has a past medical history significant for kidney stones. Patient denies fever, nausea, vomiting, chest pain, acute shortness of breath, dizziness, diarrhea or constipation. Patient denies increased urination, increased urge, burning while urinating. Will obtain in office urinalysis. [facility] Medical History Anemia Annual physical exam GERD (gastroesophageal reflux disease) Hypertension Neck pain Nephrolithiasis Overweight Rheumatoid arthritis Urinary frequency Surgical History deliv NOS-unsp Chronic cholecystitis due to cholelithiasis with choledocholithiasis History of arthroscopy of right knee History of section History of laparoscopic cholecystectomy (05/08/20) History of lumpectomy of right breast Family History Father No problems noted. Mother HTN (hypertension) Osteoarthritis Brother No problems noted. Sister No problems noted. Sister No problems noted. Son No problems noted. Son No problems noted. Son No problems noted. Social History Housing: House Patient Tobacco Use Status: Never used Tobacco e-Cigarette/Vaping Use: Never Used Second Hand Smoke Exposure: No Current 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 status: employed Cognitive needs: No Hearing needs: No Vision needs: Yes Review of Systems Const Details: Constitutional : No Weight loss, No Fever, No Chills, No Fatigue, No Malaise Cardiovascular : No Chest Pain, No SOB, No Dyspnea on Exertion, No Orthopnea, No Edema, No Palpitations Respiratory : No Cough, No Sputum, No Wheezing Gastrointestinal : No Nausea, No Vomiting, No Diarrhea, No Constipation, No abdominal Pain, No Hematochezia, No Melena Genitourinary : No Dysuria, No Urinary Frequency, No Hematuria. Admits suprapubic and right sided flank pain. Neuro : No Weakness, No Numbness, No Dizziness, No Headache Psych : No Anxiety/Panic, No Depression Heme/Lymph: No Bruising, No Bleeding,No Lymphadenopathy Endocrine : No Polyuria, No Polydipsia All other systems reviewed and are negative Physical Exam Vital Signs: Vital signs reviewed and stable Const Other: Appearance: Alert.? Oriented X3.? No acute distress.? Neck: Normal inspection.? Neck supple.? CVS: Normal heart rate and rhythm.? Pulses normal.? Respiratory: No respiratory distress.? Breath sounds normal.? Abdomen: Tender to palpation lower abdomin/suprapubic region. ? Skin: Skin warm and dry.? Normal skin color.? Normal skin turgor.? Back: No midline tenderness, no C-spine tenderness, full range of motion, CVA tenderness right side. Neuro: Oriented X 3.? No motor deficit.? No sensory deficit. CN 2-12 intact Results Reviewed Results Reviewed: Will call patient with lab and ultrasound results Assessment & Plan Assessment & Plan (1) Right flank pain: Comment: Will order labs, and retroperitoneal ultrasound to rule out kidney stone. In office urinalysis negative for infection. Patient instructed to use Motrin or Tylenol as needed for pain relief. Patient has been educated on signs of worsening symptoms and when to return to the walk-in clinic or when to present to the emergency room. Patient states she understands. Patient has been instructed to drink plenty water. Code(s): R10.9 - Unspecified abdominal pain Plan: Take your medications as prescribed. If you were prescribed antibiotics today, it is important that you take your medication to their entirety, do not skip any doses, do not finish them early. Follow-up with your primary care provider this week. Return to the emergency department with new or worsening symptoms. Such as fever s, chills, chest pain, shortness of breath, nausea, vomiting, dizziness, headache, vision changes, lethargy In case of emergency call 911 Plan Follow-up with PCP Orders: Orders US retroperitoneal comp Today R10.9 - Unspecified abdominal pain UA CC w/rflx Micro + Cult Today R10.9 - Unspecified abdominal pain Ur Preg Test Today R10.2 - Pelvic and perineal pain AMB Urinalysis Automated Today Z13.9 - Encounter for screening, unspecified Complete Blood Count Auto Diff Today Z13.0 - Encounter for screening for diseases of the blood and blood-forming organs and certain disorders involving the immune mechanism Comprehensive Met. Panel Today Z91.89 - Other specified personal risk factors, not elsewhere classified Coding Level of Care Code Est Pt Level 3 (46043) Diagnoses Right flank pain R10.9 Time Spent (min) 25
--- OUTSIDE RECORDS SUMMARY | 2023-07-22 12:23 | XMS_ITS | Continuity of Care Document ---
Author Name Unknown Organization [facility] Address [address] [place] [id number] Care Team Providers Care Doll Maker Name Role Phone Vicente Keen MD Primary Care Physician [phone] Encounter [facility] Date(s): 04/02/23 - 05/22/[address] [id number]- Attending Physician: Edmond Carballo MD Admitting Physician: Edmond Carballo MD Referring Physician: Edmond Carballo MD Patient Care team information Care Team Personnel Name: Vicente Keen MD Position: [facility] Physician (General Medicine) Member Role: PCP Address: Address: [address] [place], [place] [address] Care Team Related Persons Name: YVETTE MUNSON Address: home [address] [place] [address]
[2023-07-22 12:24] VITALS: BP 130/88; PULSE 88; TEMP 36.3; O2SAT 97; BMI 37.3
== END 2023-07-22 14:13 | disposition home or self-care (01) ==
PROVIDERS: PCP Internal Medicine; Visit Provider Nurse Practitioner Primary Care
DX: R10.9 Unspecified abdominal pain (principal)
CPT/HCPCS: 81003; 99213

== ENCOUNTER 2023-07-22 13:22 | Outpatient (REF) | payer OTHER, SELFPAY ==
--- NOTE | ~2023-07-22 | US_ITS ---
EXAMINATION: US RETROPERITONEAL LIMITED (RENAL ONLY) CLINICAL INFORMATION: Right flank pain. COMPARISON: Bladder ultrasound 02/09/2021, right upper quadrant ultrasound 10/11/2018, CT scan 10/11/2018 TECHNIQUE: Real-time ultrasound of the kidneys was performed. FINDINGS: RIGHT KIDNEY: 11.8 x 3.7 x 5.4 cm (SAG x AP x TRV). The kidney is normal in size, contour, and echogenicity. Renal cortical thickness is normal. No focal parenchymal lesions. No hydronephrosis. 0.2 x 0.2 x 0.3 cm nonobstructing calculus is seen in the mid kidney. LEFT KIDNEY: 11.4 x 5.8 x 4.7 cm (SAG x AP x TRV). The kidney is normal in size, contour, and echogenicity. Renal cortical thickness is normal. No focal parenchymal lesions. There is mild calyectasis without luis manuel hydronephrosis. 0.3 x 0.3 x 0.3 cm nonobstructing calculus is seen in the lower pole. Bladder: There are limited views of the bladder. Bilateral ureteral jets are seen. US/US renal BI IMPRESSION: 1. Bilateral nonobstructing renal calculi. 2. Mild calyectasis of the left kidney without luis manuel hydronephrosis. 3. Limited views of the bladder.
[2023-07-22 15:59] LABS: MANUAL DIFF FLAG NO
[2023-07-22 16:04] LABS: Appearance Urine Clear; Color Urine Yellow; Glucose Urine UA Negative (Negative); Leukocyte Esterase Urine Negative (Negative); Nitrite Urine Negative (Negative); PH 5.5 (5.0-9.0); Specific Gravity - Urine 1.025 (1.005-1.025); UMIC TRIGGER UACC YES; Urine Blood Trace (Negative); Urine Ketones 15 mg/dL (Negative); Urine Protein Negative (Neg-Trace)
[2023-07-22 16:05] LABS: Basophils Absolute Auto 0.1 X10*3/uL (0.0-0.2); Basophils Percent Auto 0.6 % (0-2); Eosinophils Absolute Auto 0.1 X10*3/uL (0.0-0.4); Eosinophils Percent Auto 1.2 % (0-4); Hematocrit 38.3 % (37.0-47.0); Hemoglobin 12.4 g/dl (12.0-16.0); Imm Gran Abs Auto 0.03 X10*3/uL (0.00-0.03); Imm Gran Pct Auto 0.3 % (0.0-0.4); Lymphocytes Absolute Auto 3.3 X10*3/uL (1.2-4.9); Mean Corpuscular HGB Conc 32.4 g/dl (31.0-35.0); Mean Corpuscular Hemoglobin 31.2 pg (27.0-33.0); Mean Corpuscular Volume 96.2 fL (80.0-98.0); Mean Platelet Volume 10.8 fL (9.4-12.3); Monocytes Absolute Auto 0.9 X10*3/uL (0.1-1.2); Monocytes Percent Auto 9.5 % (2-11); Neutrophils Absolute Auto 4.7 x10*3/uL (2.0-8.3); Neutrophils Percent Auto 52.4 % (45-73); Platelet Count 346 X10*3/uL (160-400); Red Blood Count 3.98 X10*6/uL (4.20-5.50); Red Cell Distribution Width 11.7 % (11.0-16.0); White Blood Count 9.1 X10*3/uL (4.8-10.8)
[2023-07-22 16:07] LABS: Bacteria Urine Trace (None Seen); Hyaline Casts Urine 0-2 /LPF (0-2); UPreg QC Valid YES; Urine Pregnancy NEGATIVE (NEGATIVE); WBC Urine 0-5 /HPF (0-5)
[2023-07-22 16:24] LABS: Alanine Aminotransferase 53 U/L (0-31); Albumin Level 4.4 g/dL (3.5-5.0); Alkaline Phosphatase 47 U/L (39-117); Anion Gap 12 (12-20); Aspartate Amino Transferase 46 U/L (5-31); Bilirubin Total 0.8 mg/dL (0.0-1.0); Blood Urea Nitrogen 13 mg/dL (9-16); Calcium 9.7 mg/dL (8.4-10.2); Carbon Dioxide 27 mmol/L (22-29); Chloride 101 mmol/L (96-108); Estimated Glomerular Filt Rate > 60; Glucose Random 95 mg/dL (60-115); Potassium 3.6 mmol/L (3.3-5.1); Sodium 136 mmol/L (135-145); Total Protein 8.3 g/dL (6.5-8.0)
== END 2023-07-22 13:23 | disposition home or self-care (01) ==
LOC: HO.HMGCX 13:22
PROVIDERS: PCP Internal Medicine; Visit Provider Nurse Practitioner Primary Care
DX: R10.2 Pelvic and perineal pain (principal); R10.9 Unspecified abdominal pain; Z91.89 Other specified personal risk factors, not elsewhere classified; Z13.0 Encounter for screening for diseases of the blood and blood-forming organs and certain disorders involving the immune mechanism
CPT/HCPCS: 36415; 76775; 80053; 81001; 81003; 81025; 85025

== ENCOUNTER 2023-07-25 11:20 | Outpatient (AMB) | payer OTHER, SELFPAY ==
[2023-07-25 11:21] VITALS: BP 120/74; PULSE 87; O2SAT 97; BMI 37.3
--- NOTE | 2023-07-25 11:21 | A.OFFPC_ITS ---
Vital Signs 07/25/23 11:21 Height 5 ft 2 in Weight 204 lb BMI 37.3 BP 120/74 Blood Pressure Location Rt brachial Position Sitting Pulse 87 Pulse Source Pulse Oximeter Pulse Oximetry (%) 97 Oxygen Delivery Method Room Air Intake Visit Reasons: Walk in follow up/kidney stones Intake Note: Pt is here today for a follow up visit after being seen in a walk in. Allergies No Known Allergies Allergy (Verified 07/25/23 11:31) Medication List - Last Reconciled 07/25/23 by Kelly Hayden MD adalimumab (Humira(CF) Pen) 40 mg subcut Q2W cholecalciferol (vitamin D3) 50 mcg PO BEDTIME ferrous sulfate 325 mg PO DAILY ibuprofen 800 mg PO TID PRN lisinopril 5 mg PO DAILY meloxicam 15 mg PO DAILY nitrofurantoin monohyd/m-cryst 100 mg (Macrobid) 100 mg PO Q12H 7 days pantoprazole 40 mg PO DAILY Tobacco use date assessed: 07/25/23 Dental Screening Dental Screen Date: 07/25/23 Did you have a dental visit in the last 12 months?: Yes Did you have a dental problem in the last 6 months where you did not have access to dental care?: No Was dental information given to patient?: Patient has dentist HPI Walk in follow up/kidney stones HPI Details Patient presents for the follow-up of walk-in visit. She has been complaining of suprapubic discomfort increased urinary frequency and dysuria for 1 week. Patient developed worsening right flank discomfort positional. She denies nausea vomiting fever chills gross hematuria. patient had renal ultrasound which showed bilateral nonobstructing nephrolithiasis. [facility] Medical History Neck pain Overweight Anemia Nephrolithiasis Urinary frequency Annual physical exam Rheumatoid arthritis GERD (gastroesophageal reflux disease) Hypertension Surgical History History of arthroscopy of right knee History of section Chronic cholecystitis due to cholelithiasis with choledocholithiasis History of laparoscopic cholecystectomy (05/08/20) History of lumpectomy of right breast deliv NOS-unsp Family History Father No problems noted. Mother HTN (hypertension) Osteoarthritis Brother No problems noted. Sister No problems noted. Sister No problems noted. Son No problems noted. Son No problems noted. Son No problems noted. Social History Housing: House Patient Tobacco Use Status: Never used Tobacco e-Cigarette/Vaping Use: Never Used Second Hand Smoke Exposure: No Current 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 status: employed Cognitive needs: No Hearing needs: No Vision needs: Yes Questionnaire PHQ-9 Over the last 2 weeks, how often have you been bothered by any of the following problems? 1. Little interest or pleasure in doing things: not at all 2. Feeling down, depressed, or hopeless: not at all 3. Trouble falling or staying asleep, or sleeping too much: not at all 4. Feeling tired or having little energy: not at all 5. Poor appetite or overeating: not at all 6. Feeling bad about yourself - or that you are a failure or have let yourself or your family down: not at all 7. Trouble concentrating on things, such as reading the newspaper or watching television: not at all 8. Moving or speaking so slowly that other people could have noticed. Or the opposite - being so fidgety or restless that you have been moving around a lot more than usual: not at all 9. Thoughts that you would be better off or of hurting yourself in some way: not at all Total score: 0 Depression Screening Interpretation: Negative Depression Screening Done: Yes Source: Developed by Drs. Romeo Mendoza, Shala Davis, Philip Fry and colleagues, with an educational philip from [employer]. Thrive Questionnaire Date Thrive assessed: 07/25/23 I am a: Patient What is your living situation today?: I have a steady place to live Within the past 12 months, did the food you bought not last and you didn't have the money to get more?: Never true Within the past 12 months, did you worry whether your food would run out before you got money to buy more?: Never true Do you have trouble paying for medicines?: No Do you have trouble getting transportation to medical appointments?: No Do you have trouble paying your heating and electricity bill?: No Do you have trouble taking care of your child, family member or friend?: No Do you have trouble with day-to-day activities such as bathing, preparing meals, shopping, managing finances, etc.?: No Are you currently unemployed and looking for a job?: No Are you interested in more education?: No Please select the resources that you would like help with: None Currently or been in a relationship where the following occur: no concerns reported THRIVE Score: 0 AUDIT C Alcohol Use Questionnaire (AUDIT-C) 1. How often do you have a drink containing alcohol?: Never 3. How often do you have six or more drinks on one occasion?: Never Total Score: 0 ISAK-7 AMB Questionnaire ISAK-7 Date ISAK - 7 assessed: 07/25/23 Feeling nervous, anxious, or on edge: 0 = Not at all Not being able to stop or control worryin = Not at all Worrying too much about different things: 0 = Not at all Trouble relaxin = Not at all Being so restless that it is hard to sit still: 0 = Not at all Becoming easily annoyed or irritable: 0 = Not at all Feeling afraid as if something awful might happen: 0 = Not at all Total ISAK-7 score (0-4 normal; 5-9 mild; 10-14 moderate; 15-21 severe): 0 Source: Developed by Drs. Romeo Mendoza, Shala Davis, Philip Fry and colleagues, with an educational philip from [employer]. Review of Systems Const All systems reviewed & are unremarkable except as noted in HPI and below Reports no additional complaints Eyes Reports no additional complaints ENT Reports no additional complaints Card Reports no additional complaints Resp Reports no additional complaints GI Reports no additional complaints Physical exam (Primary Care) Vital Signs: Last Vital Signs Pulse 87 07/25/23 11:21 BP 120/74 07/25/23 11:21 Pulse Ox 97 07/25/23 11:21 Oxygen Delivery Method Room Air 07/25/23 11:21 BMI result Body Mass Index 37.3 Tobacco/Smoking Status: Tobacco use Status Tobacco use date assessed 07/25/23 07/25/23 11:23 Patient Tobacco Use Status Never used Tobacco 07/25/23 11:23 e-Cigarette/Vaping Use Never Used 07/25/23 11:23 PHQ-9: PHQ-9 Score PHQ-9: Total score 0 07/25/23 11:39 Depression Screening Interpretation: Negative Thrive Assessment: Date of Thrive Assessment Date Thrive assessed 07/25/23 07/25/23 11:39 Currently or been in a relationship where the following occur: no concerns reported Const General: no acute distress HENMT Head: Yes normal to inspection Ears: hearing grossly normal bilaterally Face and sinus: Yes normal facial exam Neck Neck: Yes supple Resp Effort & Inspection: normal respiratory effort Auscultation: clear to auscultation bilaterally Cardio Rhythm: regular rhythm Heart sounds: S1 normal heart sound present and S2 normal heart sound present GI Inspection: Yes normal to inspection Palpation (GI): Soft to palpation Percussion: Yes normal to percussion Auscultation: normal bowel sounds Other: There is reproducible tenderness over right lower ribs General: Yes Bimanual renal exam normal bilaterally and Yes no CVA tenderness Back/Spine/Pelvis Back: no CVA tenderness Assessment and Plan Assessment & Plan (1) Nephrolithiasis: Comment: Renal ultrasound consistent with bilateral nonobstructing nephrolithiasis 07/30 Code(s): N20.0 - Calculus of kidney Plan: Patient was advised to increase fluid intake and will be referred to Urology (2) Urinary frequency: Code(s): R35.0 - Frequency of micturition Plan: For persistent increased urinary frequency and dysuria urine culture will be obtained patient will be treated empirically with Macrobid (3) Dysuria: Code(s): R30.0 - Dysuria (4) Rib pain on right side: Code(s): R07.81 - Pleurodynia Plan: For musculoskeletal rib pain meloxicam is prescribed Orders: Orders Urine Culture Today R30.0 - Dysuria, R35.0 - Frequency of micturition Referrals Urology Referral N20.0 - Calculus of kidney Medications: New nitrofurantoin monohyd/m-cryst 100 mg (Macrobid) must administer with a meal/food 100 mg PO Q12H 7 days 14 caps 0RF meloxicam 15 mg PO DAILY 10 tabs 0RF Refilled ferrous sulfate 325 mg PO DAILY 90 tabs 3RF Coding Level of Care Code Est Pt Level 3 (78254) Diagnoses Nephrolithiasis N20.0 Urinary frequency R35.0 Dysuria R30.0 Rib pain on right side R07.81
== END 2023-07-25 12:15 | disposition home or self-care (01) ==
PROVIDERS: PCP Internal Medicine; Visit Provider Internal Medicine
DX: N20.0 Calculus of kidney (principal); R35.0 Frequency of micturition; R30.0 Dysuria; R07.81 Pleurodynia
CPT/HCPCS: 99213

== ENCOUNTER 2023-07-25 12:11 | Outpatient (REF) | payer OTHER, SELFPAY ==
[2023-07-25 14:04] LABS: Appearance Urine Clear; Color Urine Yellow; Glucose Urine UA Negative (Negative); Leukocyte Esterase Urine Negative (Negative); Nitrite Urine Negative (Negative); PH 5.5 (5.0-9.0); Specific Gravity - Urine 1.025 (1.005-1.025); Urine Blood Negative (Negative); Urine Ketones Negative (Negative); Urine Protein Negative (Neg-Trace)
== END 2023-07-25 12:12 | disposition home or self-care (01) ==
LOC: HO.HMGCLDS 12:11
PROVIDERS: Nurse Practitioner Primary Care; PCP Internal Medicine; Visit Provider Internal Medicine
DX: R10.9 Unspecified abdominal pain (principal); R30.0 Dysuria; R35.0 Frequency of micturition
CPT/HCPCS: 81003; 87086

== ENCOUNTER 2023-08-19 14:14 | Outpatient (AMB) | payer OTHER, SELFPAY ==
[2023-08-19 14:16] VITALS: BP 132/80; PULSE 93; TEMP 37.1; O2SAT 98
--- NOTE | 2023-08-19 14:16 | AM.OFFWIN_ITS ---
Intake Vital Signs 08/19/23 14:16 Height 5 ft 2 in BP 132/80 Blood Pressure Location Rt brachial Position Sitting Pulse 93 Pulse Source Pulse Oximeter Temp 98.8 F Temp Source Oral Pulse Oximetry (%) 98 Oxygen Delivery Method Room Air Intake Visit Reasons: EP RT side rib pain Intake Note: Pt is here c/o right side rib pain. Pt states she was diagnosed with kidney stones last month. Pt has appt with urology in September but is in a lot of pain today. Patient Tobacco Use Status: Never used Tobacco Allergies No Known Allergies Allergy (Verified 08/19/23 14:22) Do you need a note to return to daycare/school/sports/work: Yes HPI HPI Comments History of Present Illness Details 47-year-old female comes in today [facility] with persistent right flank pain. She has been diagnosed with renal calculi about a month ago and the pain consists continues and is getting slowly more intense. The patient does have an appointment with Urology at the beginning of September and is asking for some help facilitating the movement of the appointment forward. The patient currently is taking ibuprofen for pain control. [facility] Medical History Neck pain Overweight Anemia Nephrolithiasis Urinary frequency Annual physical exam Rheumatoid arthritis GERD (gastroesophageal reflux disease) Hypertension Surgical History History of arthroscopy of right knee History of section Chronic cholecystitis due to cholelithiasis with choledocholithiasis History of laparoscopic cholecystectomy (05/08/20) History of lumpectomy of right breast deliv NOS-unsp Family History Father No problems noted. Mother HTN (hypertension) Osteoarthritis Brother No problems noted. Sister No problems noted. Sister No problems noted. Son No problems noted. Son No problems noted. Son No problems noted. Social History Housing: House Patient Tobacco Use Status: Never used Tobacco e-Cigarette/Vaping Use: Never Used Second Hand Smoke Exposure: No Current 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 status: employed Cognitive needs: No Hearing needs: No Vision needs: Yes Review of Systems GI Reports abdominal pain Reports flank pain (right flank pain) Skin/Breast Reports rash (no rash noted) Physical Exam Vital Signs: Last Vital Signs Temp 98.8 F 08/19/23 14:16 Pulse 93 08/19/23 14:16 BP 132/80 08/19/23 14:16 Pulse Ox 98 08/19/23 14:16 Oxygen Delivery Method Room Air 08/19/23 14:16 Const General: acute distress moderate GI Palpation (GI): Tenderness to palpation present (GI) (CVA tenderness right) General: Yes CVA tenderness on the right and localized Back/Spine/Pelvis Back: CVA tenderness Results AMB Urinalysis, Automated UA Leukoctes 0 Tim/uL Last Edit by Jose Broussard CMA on 08/19/23 14:27 UA Nitrite Negative Last Edit by Jose Broussard CMA on 08/19/23 14:27 UA Urobilinogen 0.2 mg/dL Last Edit by Jose Broussard CMA on 08/19/23 14 :27 UA Protein 30 mg/dL Last Edit by Jose Broussard CMA on 08/19/23 14:27 UA pH 5.5 Last Edit by Jose Broussard CMA on 08/19/23 14:27 UA Blood 80 John/uL Last Edit by Jose Broussard CMA on 08/19/23 14:27 UA Specific [place] 1.030 Last Edit by Jose Broussard CMA on 08/19/23 14:27 UA Ketone Positive Last Edit by Jose Broussard CMA on 08/19/23 14:27 UA Bilirubin 2 mg/dL Last Edit by Jose Broussard CMA on 08/19/23 14:27 UA Glucose 0 mg/dL Last Edit by Jose Broussard CMA on 08/19/23 14:27 Results Reviewed Results Reviewed: Laboratory Last Values Urine pH (Auto) 5.5 08/19/23 14: Specific [place] (Auto) 1.030 08/19/23 14:26 Urine Protein (Auto) 30 mg/dL 08/19/23 14:26 Glucose (UA)(Auto) 0 mg/dL 08/19/23 14:26 Urine Ketones (Auto) Positive 08/19/23 14:26 Urine Blood (Auto) 80 John/uL 08/19/23 14:26 Urine Nitrite (Auto) Negative 08/19/23 14:26 Urine Bilirubin (Auto) 2 mg/dL 08/19/23 14:26 Urine Urobilinogen (Auto) 0.2 mg/dL 08/19/23 14:26 Leukocyte Esterase (Auto) 0 Tim/uL 08/19/23 14:26 Assessment & Plan Assessment & Plan (1) Renal calculi: Code(s): N20.0 - Calculus of kidney Plan: The patient does have a follow-up visit scheduled with Urology at the beginning of September. I have written a note to the PCP to hopefully assist in moving that appointment forward. In the meantime the patient will continue ibuprofen for pain and push fluids. She will go to the emergency room if pain gets severe. Plan See plan Orders: Orders AMB Urinalysis Automated Today Z13.9 - Encounter for screening, unspecified Coding Level of Care Code Est Pt Level 3 (15772) Diagnoses Renal calculi N20.0
== END 2023-08-19 15:00 | disposition home or self-care (01) ==
PROVIDERS: PCP Internal Medicine; Visit Provider Physician Assistant Medical
DX: N20.0 Calculus of kidney (principal); Z13.9 Encounter for screening, unspecified
CPT/HCPCS: 81003; 99213

== ENCOUNTER 2023-09-01 14:11 | Outpatient (REF) | payer OTHER, SELFPAY | END 2023-09-01 14:12 | disposition home or self-care (01) | LOC: HO.LAB 14:11 | PROVIDERS: PCP Internal Medicine; Visit Provider Urology | DX: N20.0 Calculus of kidney (principal); R33.9 Retention of urine, unspecified; R10.9 Unspecified abdominal pain; M54.9 Dorsalgia, unspecified | CPT/HCPCS: 81003; 87086; 99202 ==

== ENCOUNTER 2023-09-01 14:11 | Outpatient (AMB) | payer OTHER, SELFPAY ==
--- NOTE | 2023-09-01 14:13 | MHC.OFFVIS ---
Intake Intake Visit Reasons: Calculus of kidney Intake Note: Patient presents today for a follow-up Meds- None Allergies to Antibiotic- No Known Allergies Blood Thinner- None Patient stated she has pain in the right side of the abdomen, she has a mild pain, no pain when she urinates, but she feels some kind of discomfort after she urinates, like she is not empty and want to try to urinate. 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 The patient states for over a year she has had pain on her right side. She states that the pain extends down her back towards the buttocks but also goes towards her lower abdomen. She also complains of some urinary urgency denies gross blood in the urine. She had a renal ultrasound on 07/12/2023 which noted small bilateral stones 3 mm on the right and 3 mm on the left. No hydronephrosis bladder noted bilateral ureteral jets no evidence for obstruction. On examination there is no definite CVA tenderness, there is pain on palpation of the rib. Urinalysis- negative leukocytes trace blood I have discussed further evaluation with CT stone protocol, will send urine for culture. 09/01/2023--Plan CTAP wo/IV contrast Urine culture Ibuprofen p.r.n. Follow-up post [facility] Medical History Neck pain Overweight Anemia Nephrolithiasis Urinary frequency Annual physical exam Rheumatoid arthritis GERD (gastroesophageal reflux disease) Hypertension Surgical History History of arthroscopy of right knee History of section Chronic cholecystitis due to cholelithiasis with choledocholithiasis History of laparoscopic cholecystectomy (05/08/20) History of lumpectomy of right breast deliv NOS-unsp Family History Father No problems noted. Mother HTN (hypertension) Osteoarthritis Brother No problems noted. Sister No problems noted. Sister No problems noted. Son No problems noted. Son No problems noted. Son No problems noted. Social History Housing: House Patient Tobacco Use Status: Never used Tobacco e-Cigarette/Vaping Use: Never Used Second Hand Smoke Exposure: No Current 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 status: employed Cognitive needs: No Hearing needs: No Vision needs: Yes Review of Systems Const All systems reviewed & are unremarkable except as noted in HPI and below Reports no additional complaints Eyes Reports no additional complaints ENT Reports no additional complaints Card Denies dyspnea Resp Denies cough and Denies dyspnea GI Reports no additional complaints Reports no additional complaints Musc Reports no additional complaints Skin/Breast Denies rash and Denies unusual bruising Neuro Reports no additional complaints Psych Reports no additional complaints Endo Reports no additional complaints Mina/Lymph Reports no additional complaints Aller/Immun Reports no additional complaints Physical Exam Back/Spine/Pelvis Other: Pain right side along the rib area Results AMB Urinalysis, Automated UA Leukoctes 0 Tim/uL Last Edit by Nicole Jernigan CMA on 09/01/23 14:31 UA Nitrite Negative Last Edit by Nicole Jernigan [facility] on 09/01/23 14:31 UA Urobilinogen 0.2 mg/dL Last Edit by Nicole Jernigan CMA on 09/01/23 14:31 UA Protein 30 mg/dL Last Edit by Nicole Jernigan [facility] on 09/01/23 14:31 UA pH 5.5 Last Edit by Nicole Jernigan [facility] on 09/01/23 14:31 UA Blood 25 John/uL Last Edit by Nicole Jernigan [facility] on 09/01/23 14:31 UA Specific [place] 1.030 Last Edit by Nicole Jernigan CMA on 09/01/23 14:31 UA Ketone Negative Last Edit by Nicole Jernigan CMA on 09/01/23 14:31 UA Bilirubin 1 mg/dL Last Edit by Nicole Jernigan CMA on 09/01/23 14:31 UA Glucose 0 mg/dL Last Edit by Nicole Jernigan CMA on 09/01/23 14:31 Results Reviewed Results Reviewed: Laboratory Last Values Urine pH (Auto) 5.5 09/01/23 14:29 Specific [place] (Auto) 1.030 09/01/23 14:29 Urine Protein (Auto) 30 mg/dL 09/01/23 14:29 Glucose (UA)(Auto) 0 mg/dL 09/01/23 14:29 Urine Ketones (Auto) Negative 09/01/23 14:29 Urine Blood (Auto) 25 John/uL 09/01/23 14:29 Urine Nitrite (Auto) Negative 09/01/23 14:29 Urine Bilirubin (Auto) 1 mg/dL 09/01/23 14:29 Urine Urobilinogen (Auto) 0.2 mg/dL 09/01/23 14:29 Leukocyte Esterase (Auto) 0 Tim/uL 09/01/23 14:29 Date of Service: 07/22/23 EXAMINATION: US RETROPERITONEAL LIMITED (RENAL ONLY) CLINICAL INFORMATION: Right flank pain. COMPARISON: Bladder ultrasound 02/09/2021, right upper quadrant ultrasound 10/11/2018, CT scan 10/11/2018 TECHNIQUE: Real-time ultrasound of the kidneys was performed. FINDINGS: RIGHT KIDNEY: 11.8 x 3.7 x 5.4 cm (SAG x AP x TRV). The kidney is normal in size, contour, and echogenicity. Renal cortical thickness is normal. No focal parenchymal lesions. No hydronephrosis. 0.2 x 0.2 x 0.3 cm nonobstructing calculus is seen in the mid kidney. LEFT KIDNEY: 11.4 x 5.8 x 4.7 cm (SAG x AP x TRV). The kidney is normal in size, contour, and echogenicity. Renal cortical thickness is normal. No focal parenchymal lesions. There is mild calyectasis without luis manuel hydronephrosis. 0.3 x 0.3 x 0.3 cm nonobstructing calculus is seen in the lower pole. Bladder: There are limited views of the bladder. Bilateral ureteral jets are seen. IMPRESSION: 1. Bilateral nonobstructing renal calculi. 2. Mild calyectasis of the left kidney without luis manuel hydronephrosis. 3. Limited views of the bladder. Assessment & Plan Assessment & Plan (1) Renal calculi: Code(s): N20.0 - Calculus of kidney (2) Right flank pain: Code(s): R10.9 - Unspecified abdominal pain (3) Back pain: Code(s): M54.9 - Dorsalgia, unspecified Plan CTAP wo/IV contrast Urine culture Ibuprofen p.r.n. Follow-up post Orders: Orders AMB Urinalysis Automated Today R33.9 - Retention of urine, unspecified CT abdomen pelvis wo IV con Today N20.0 - Calculus of kidney, R10.9 - Unspecified abdominal pain Patient Instructions: The patient had an opportunity to ask questions regarding treatment plan. All questions were answered. Imaging, Laboratory studies and physical exam results were discussed and reviewed in detail. No major barriers to understanding were identified. The patient expressed understanding and agreement with the above treatment plan. The patient is aware they should contact our office by phone for worsening of their current condition or the appearance of new symptoms. Compliance is encouraged with any medications and followup testing that is ordered. It is a privilege to be allowed the opportunity to participate in the urologic care of your patient. If you have any questions or concerns regarding treatment for the above conditions please do not hesitate to contact me. The office telephone contact is [phone]. This note is constructed in part using voice recognition software. While every effort has been made to ensure accuracy gas analyst errors may have been included. Yours sincerely, Stephan Rutherford MD Coding Level of Care Code New Pt Level 4 (40237) Diagnoses Renal calculi N20.0 Right flank pain R10.9 Back pain M54.9
== END 2023-09-01 14:50 | disposition home or self-care (01) ==
PROVIDERS: PCP Internal Medicine; Visit Provider Urology
DX: N20.0 Calculus of kidney (principal); R10.9 Unspecified abdominal pain; M54.9 Dorsalgia, unspecified; R33.9 Retention of urine, unspecified
CPT/HCPCS: 99204

== ENCOUNTER 2023-09-08 12:57 | Outpatient (REF) | payer OTHER, SELFPAY ==
--- NOTE | ~2023-09-08 | CT_ITS ---
EXAMINATION: CT ABDOMEN AND PELVIS WITHOUT CONTRAST CLINICAL INFORMATION: Renal calculus. COMPARISON: Renal ultrasound dated 07/22/2023; CT abdomen and pelvis dated 10/21/2018. TECHNIQUE: Multidetector volumetric imaging was performed from the superior aspect of the liver through the pubic symphysis. Sagittal and coronal reformatted images were obtained on the technologist's workstation. This CT examination was performed using dose optimization techniques as appropriate, variously including the following: *Automated exposure control *Adjustment of mA and/or kV according to patient size (this includes techniques or standardized protocols for targeted exams where dose is matched to indication/reason for exam; i.e. extremities or head) *Use of iterative reconstruction technique DLP: 648 mGy-cm FINDINGS: LUNG BASES: The visualized lung bases are unremarkable. LIVER, GALLBLADDER, AND BILIARY TREE: The liver is normal in size, shape, and attenuation. No focal hepatic lesion or biliary ductal dilatation is present. The gallbladder is surgically absent. PANCREAS: Unremarkable. SPLEEN: Unremarkable. ADRENAL GLANDS: Unremarkable. KIDNEYS AND URETERS: The kidneys are normal in size, shape, and attenuation. At the lower pole of the left kidney (4:248), a 4 mm nonobstructing calculus is seen. No perinephric stranding. BLADDER: Unremarkable. GASTROINTESTINAL TRACT: The small and large bowel are unremarkable. No obstruction, free intraperitoneal air or abscess is seen. There is no focal bowel wall thickening. No significant diverticulosis or diverticulitis is seen. The vermiform appendix is unremarkable. ABDOMINAL WALL: There is a small fat-containing umbilical hernia with neck measuring approximately 1.3 cm. LYMPH NODES: Normal. VASCULAR: Unremarkable. PELVIC VISCERA: The uterus and adnexa are unremarkable. There are pelvic phleboliths. OSSEOUS STRUCTURES: There is multi-level moderate lower thoracic and mild lumbar spondylosis. No acute or aggressive osseous finding is seen. CT/CT abdomen pelvis wo IV con IMPRESSION: A 4 mm nonobstructing left renal lower pole calculus is seen. No further urinary calculus is seen, and there is no obstructive uropathy. Fleischner guidelines were followed.
== END 2023-09-08 12:58 | disposition home or self-care (01) ==
LOC: HO.CT 12:57
PROVIDERS: PCP Internal Medicine; Visit Provider Urology
DX: N20.0 Calculus of kidney (principal); R10.9 Unspecified abdominal pain
CPT/HCPCS: 74176

== ENCOUNTER 2023-10-16 15:14 | Outpatient (AMB) | payer OTHER, SELFPAY ==
--- NOTE | 2023-10-16 15:22 | A.OFFVIS_ITS ---
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 She was last seen in the office 09/01/19 complaints of right flank pain she has history of kidney stones. She had a CT scan done on --I reviewed results there are no right kidney stones. There is a 4 mm nonobstructing stone in the left lower pole kidney. At this time she states she still gets intermittent pain on the right side. I have discussed with her that this is likely not kidney related and may be musculoskeletal. Urinalysis: Protein 1+, blood 1+, leukocytes negative. Plan Follow-up in [address] KUB prior, Monitor diet, recommend hydration up to 2 L, low oxalate low protein and low salt diet Review of chart: 09/01/2023-- Francisca is a 47-year-old fema le who is here for evaluation for nephrolithiasis. The patient states for over a year she has had pain on her right side. She states that the pain extends down her back towards the buttocks but also goes towards her lower abdomen. She also complains of some urinary urgency denies gross blood in the urine. She had a renal ultrasound on 07/12/2023 which noted small bilateral stones 3 mm on the right and 3 mm on the left. No hydronephrosis bladder noted bilateral ureteral jets no evidence for obstruction. On examination there is no definite CVA tenderness, there is pain on palpation of the rib. Urinalysis- negative leukocytes trace blood I have discussed further evaluation with CT stone protocol, will send urine for culture. 10/16/2023--Left kidney 4 mm nonobstructi ng stone. I have discussed options- observation versus ESWL. Plan -shared decision-will monitor kidney stone for now. Follow-up in [address] KUB prior Monitor diet, recommend hydration up to 2 L, low oxalate low protein and low salt diet PFSH Medical History Neck pain Overweight Anemia Nephrolithiasis Urinary frequency Annual physical exam Rheumatoid arthritis GERD (gastroesophageal reflux disease) Hypertension Surgical History History of arthroscopy of right knee History of section Chronic cholecystitis due to cholelithiasis with choledocholithiasis History of laparoscopic cholecystectomy (05/08/20) History of lumpectomy of right breast deliv NOS-unsp Family History Father No problems noted. Mother HTN (hypertension) Osteoarthritis Brother No problems noted. Sister No problems noted. Sister No problems noted. Son No problems noted. Son No problems noted. Son No problems noted. Social History Housing: House Patient Tobacco Use Status: Never used Tobacco e-Cigarette/Vaping Use: Never Used Second Hand Smoke Exposure: No Current 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 status: employed Cognitive needs: No Hearing needs: No Vision needs: Yes Review of Systems Const All systems reviewed & are unremarkable except as noted in HPI and below Reports no additional complaints Eyes Reports no additional complaints ENT Reports no additional complaints Card Reports no additional complaints Resp Reports no additional complaints GI Reports no additional complaints Reports as per HPI Musc Reports no additional complaints Skin/Breast Reports system reviewed and no additional complaints, except as documented Neuro Reports no additional complaints Psych Reports no additional complaints Endo Reports no additional complaints Mina/Lymph Reports no additional complaints Aller/Immun Reports no additional complaints Results AMB Urinalysis, Automated UA Leukoctes 0 Tim/uL Last Edit by CAITLYN Babb on 10/16/23 15:36 UA Nitrite Negative Last Edit by CATILYN Babb on 10/16/23 15:36 UA Urobilinogen 0.2 mg/dL Last Edit by CAITLYN Babb on 10/16/23 15:3 6 UA Protein 30 mg/dL Last Edit by Shashank Ayon A on 10/16/23 15:36 1+ Shashank Ayon 10/16/23 15:36 UA pH 6.5 Last Edit by Shashank Ayon A on 10/16/23 15:36 UA Blood 25 John/uL Last Edit by Shashank Ayon Alvina on 10/16/23 15:36 UA Specific [place] 1.015 Last Edit by Shashank Ayon A on 10/16/23 15: 36 UA Ketone Last Edit by Shashank Ayon A on 10/16/23 15:36 UA Bilirubin 0 mg/dL Last Edit by Shashank Ayon A on 10/16/23 15:36 UA Glucose 0 mg/dL Last Edit by Shashank Ayon Alvina on 10/16/23 15:36 Results Reviewed Results Reviewed: Laboratory Last Values Urine pH (Auto) 6.5 10/16/23 15:32 Specific [place] (Auto) 1.015 10/16/23 15:32 Urine Protein (Auto) 30 mg/dL 10/16/23 15:32 Glucose (UA)(Auto) 0 mg/dL 10/16/23 15:32 Urine Blood (Auto) 25 John/uL 10/16/23 15:32 Urine Nitrite (Auto) Negative 10/16/23 15:32 Urine Bilirubin (Auto) 0 mg/dL 10/16/23 15:32 Urine Urobilinogen (Auto) 0.2 mg/dL 10/16/23 15:32 Leukocyte Esterase (Auto) 0 Tim/uL 10/16/23 15:32 Date of Service: 09/08/23 EXAMINATION: CT ABDOMEN AND PELVIS WITHOUT CONTRAST CLINICAL INFORMATION: Renal calculus. COMPARISON: Renal ultrasound dated 07/22/2023; CT abdomen and pelvis dated 10/21/2018. TECHNIQUE: Multidetector volumetric imaging was performed from the superior aspect of the liver through the pubic symphysis. Sagittal and coronal reformatted images were obtained on the technologist's workstation. This CT examination was performed using dose optimization techniques as appropriate, variously including the following: *Automated exposure control *Adjustment of mA and/or kV according to patient size (this includes techniques or standardized protocols for targeted exams where dose is matched to indication/reason for exam; i.e. extremities or head) *Use of iterative reconstruction technique DLP: 648 mGy-cm FINDINGS: LUNG BASES: The visualized lung bases are unremarkable. LIVER, GALLBLADDER, AND BILIARY TREE: The liver is normal in size, shape, and attenuation. No focal hepatic lesion or biliary ductal dilatation is present. The gallbladder is surgically absent. PANCREAS: Unremarkable. SPLEEN: Unremarkable. ADRENAL GLANDS: Unremarkable. KIDNEYS AND URETERS: The kidneys are normal in size, shape, and attenuation. At the lower pole of the left kidney (4:248), a 4 mm nonobstructing calculus is seen. No perinephric stranding. BLADDER: Unremarkable. GASTROINTESTINAL TRACT: The small and large bowel are unremarkable. No obstruction, free intraperitoneal air or abscess is seen. There is no focal bowel wall thickening. No significant diverticulosis or diverticulitis is seen. The vermiform appendix is unremarkable. ABDOMINAL WALL: There is a small fat-containing umbilical hernia with neck measuring approximately 1.3 cm. LYMPH NODES: Normal. VASCULAR: Unremarkable. PELVIC VISCERA: The uterus and adnexa are unremarkable. There are pelvic phleboliths. OSSEOUS STRUCTURES: There is multi-level moderate lower thoracic and mild lumbar spondylosis. No acute or aggressive osseous finding is seen. IMPRESSION: A 4 mm nonobstructing left renal lower pole calculus is seen. No further urinary calculus is seen, and there is no obstructive uropathy. Assessment & Plan Assessment & Plan (1) Kidney stone on left side: Code(s): N20.0 - Calculus of kidney Plan Left kidney 4 mm nonobstructing stone. I have discussed options-observation versus ESWL. Plan -shared decision-will monitor kidney stone for now. Follow-up in [address] KUB prior Monitor diet, recommend hydration up to 2 L, low oxalate low protein and low salt diet Orders: Orders AMB Urinalysis Automated Today Z13.9 - Encounter for screening, unspecified Patient Instructions: The patient had an opportunity to ask questions regarding treatment plan. All questions were answered. Imaging, Laboratory studies were discussed and reviewed in detail. No major barriers to understanding were identified. The patient expressed understanding and agreement with the above treatment plan. The patient is aware they should contact our office by phone for worsening of their current condition or the appearance of new symptoms. Compliance is encouraged with any medications and followup testing that is ordered. It is a privilege to be allowed the opportunity to participate in the urologic care of your patient. If you have any questions or concerns regarding treatment for the above conditions please do not hesitate to contact me. The office telephone contact is [phone]. This note is constructed in part using voice recognition software. While every effort has been made to ensure accuracy motorcycle engine assembler errors may have been included. Yours sincerely, Stephan Rutherford MD Coding Level of Care Code Est Pt Level 3 (70516) Diagnoses Kidney stone on left side N20.0
== END 2023-10-16 16:06 | disposition home or self-care (01) ==
PROVIDERS: PCP Internal Medicine; Visit Provider Urology
DX: N20.0 Calculus of kidney (principal); Z13.9 Encounter for screening, unspecified
CPT/HCPCS: 99213

== ENCOUNTER → 2023-10-16 15:14 | Outpatient (BNVA) | payer OTHER, SELFPAY | PROVIDERS: PCP Internal Medicine; Visit Provider Urology | DX: N20.0 Calculus of kidney (principal) | CPT/HCPCS: 81003; 99212 ==

== ENCOUNTER 2023-10-23 08:38 | Outpatient (AMB) | payer OTHER, SELFPAY ==
[2023-10-23 08:56] VITALS: BP 160/100; PULSE 87; TEMP 36.4; O2SAT 97; BMI 36.8
--- NOTE | 2023-10-23 08:56 | AM.OFFWIN_ITS ---
Intake Vital Signs 10/23/23 08:56 Height 5 ft 2 in Weight 201 lb BMI 36.8 BP 160/100 H Blood Pressure Location Lt brachial Position Sitting Pulse 87 Pulse Source Pulse Oximeter Temp 97.5 F Temp Source Temporal Artery Scan Pulse Oximetry (%) 97 Oxygen Delivery Method Room Air Intake Visit Reasons: EP cough stuffy nose (lobby) Intake Note: pt is here today for cough stuffy nose started friday Patient Tobacco Use Status: Never used Tobacco Allergies No Known Allergies Allergy (Verified 10/23/23 09:33) Do you need a note to return to daycare/school/sports/work: Yes HPI EP cough stuffy nose (lobby) HPI Details This is a 47 year old female patient who presents today with a 5 day history of cough, nasal congestion, fatigue. 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 Denies any fever/chills or GI symptoms. Has been taking Mucinex at home. Is on Prednisone currently for an ortho issue (knees) so cannot take any NSAIDs. FOR[facility]LY [facility] Medical History Neck pain Overweight Anemia Nephrolithiasis Urinary frequency Annual physical exam Rheumatoid arthritis GERD (gastroesophageal reflux disease) Hypertension Surgical History History of arthroscopy of right knee History of section Chronic cholecystitis due to cholelithiasis with choledocholithiasis History of laparoscopic cholecystectomy (05/08/20) History of lumpectomy of right breast deliv NOS-unsp Family History Father No problems noted. Mother HTN (hypertension) Osteoarthritis Brother No problems noted. Sister No problems noted. Sister No problems noted. Son No problems noted. Son No problems noted. Son No problems noted. Social History Housing: House Patient Tobacco Use Status: Never used Tobacco e-Cigarette/Vaping Use: Never Used Second Hand Smoke Exposure: No Current 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 status: employed Cognitive needs: No Hearing needs: No Vision needs: Yes Review of Systems Const All systems reviewed & are unremarkable except as noted in HPI and below Physical Exam Const General: cooperative and no acute distress HEENT Head: Yes normal to inspection Ears: hearing grossly normal bilaterally General nose exam: Normal external nose present and Nasal discharge present mucoid Face and sinus: Yes normal facial exam Throat: Yes posterior oropharynx normal Neck Neck: Yes no lymphadenopathy Resp Effort & Inspection: normal respiratory effort and Actively coughing Quality: productive Auscultation: clear to auscultation bilaterally Cardio Rate: regular rate Rhythm: regular rhythm Skin General skin exam: no rashes or lesions noted Extrem General: Yes capillary refill normal and Yes no clubbing, cyanosis or edema Psych Appearance: grossly normal Mental Status: mental status grossly normal Speech and movement: Normal speech and movement present Assessment & Plan Assessment & Plan (1) Upper respiratory infection: Code(s): J06.9 - Acute upper respiratory infection, unspecified Qualifiers: URI type: unspecified viral URI Qualified Code(s): J06.9 - Acute upper respiratory infection, unspecified Plan: Symptoms consistent with viral upper respiratory illness. COVID/flu/RSV swab obtained. Recommended patient continue conservative measures for symptomatic treatment, including OTC cold/flu products, Tylenol, increasing fluid and healthy food/vitamin intake. I will prescribe her benzonatate for her cough, which has been keeping her up at night. Reviewed indications, use, possible side effects of this. If she does not improve with time and conservative measures, she can return to the clinic for further evaluation. She agrees to plan. Work note provided. Orders: Orders SARS-CoV2/FLU/RSV Today J06.9 - Acute upper respiratory infection, unspecified Medications: New benzonatate 100 mg PO BID 7 days PRN 14 caps 0RF cough R05.9 - Cough, unspecified Coding Level of Care Code Est Pt Level 4 (38831) Diagnoses Viral upper respiratory tract infection J06.9 URI type: unspecified viral URI
== END 2023-10-23 09:36 | disposition home or self-care (01) ==
PROVIDERS: PCP Internal Medicine; Visit Provider Nurse Practitioner Family
DX: J06.9 Acute upper respiratory infection, unspecified (principal)
CPT/HCPCS: 99214

== ENCOUNTER 2023-10-23 09:32 | Outpatient (REF) | payer OTHER, SELFPAY ==
[2023-10-23 11:31] LABS: Influenza A PCR NEGATIVE (Negative); Influenza B PCR NEGATIVE (Negative); Resp Syncy Virus RNA Qual PCR NEGATIVE (Negative); SARS COV2 PCR INHOUSE NEGATIVE (Negative)
== END 2023-10-23 09:33 | disposition home or self-care (01) ==
LOC: HO.LAB 09:32
PROVIDERS: Visit Provider Nurse Practitioner Family
DX: J06.9 Acute upper respiratory infection, unspecified (principal)
CPT/HCPCS: 0241U

== ENCOUNTER 2023-11-14 08:20 | Outpatient (REF) | payer OTHER, SELFPAY ==
[2023-11-16 19:38] LABS: TS Negative Control Passed; TS Panel A 0; TS Panel B 1; TS Positive Control Passed; TSpotTB Negative (Negative)
== END 2023-11-14 08:21 | disposition home or self-care (01) ==
LOC: HO.HMGCLDS 08:20
PROVIDERS: PCP Internal Medicine; Visit Provider Internal Medicine
DX: Z11.1 Encounter for screening for respiratory tuberculosis (principal)
CPT/HCPCS: 36415; 86481

== ENCOUNTER 2023-11-22 10:15 | Outpatient (AMB) | payer OTHER, SELFPAY ==
[2023-11-22 12:35] VITALS: BP 134/80; PULSE 89; O2SAT 97; BMI 36.4
--- NOTE | 2023-11-22 12:35 | MHC.OFFWIV ---
Intake Vital Signs 11/22/23 12:35 Height 5 ft 2 in Weight 199 lb BMI 36.4 BP 134/80 Blood Pressure Location Lt brachial Position Sitting Pulse 89 Pulse Source Pulse Oximeter Pulse Oximetry (%) 97 Oxygen Delivery Method Room Air Intake Visit Reasons: EP lower abdominal pain constant urinating Intake Note: Pt is here today c/o lower abd pain and constant urinating x3days Patient Tobacco Use Status: Never used Tobacco Allergies No Known Allergies Allergy (Verified 12/04/23 13:44) HPI EP lower abdominal pain constant urinating HPI Details Patient is a 47-year-old female comes to the walk-in clinic complaining of recurrent episode of urinary frequency and suprapubic pressure. She reports that in the past her urine dips were negative, and did not grow bacteria on microscopy testing. She did complete a course of antibiotics with her last episode, which did improve symptoms for a few months. She has seen a urologist in the past for kidney stones. She reports no upper back pain, nausea vomiting or diarrhea, weakness or dizziness, myalgias or malaise, fever or chills, chest pain or shortness of breath, or other significant associated symptoms. Reviewed past medical history with the patient [facility] Medical History Neck pain Overweight Anemia Nephrolithiasis Urinary frequency Annual physical exam Rheumatoid arthritis GERD (gastroesophageal reflux disease) Hypertension Surgical History History of arthroscopy of right knee History of section Chronic cholecystitis due to cholelithiasis with choledocholithiasis History of laparoscopic cholecystectomy (05/08/20) History of lumpectomy of right breast deliv NOS-unsp Family History Father No problems noted. Mother HTN (hypertension) Osteoarthritis Brother No problems noted. Sister No problems noted. Sister No problems noted. Son No problems noted. Son No problems noted. Son No problems noted. Social History Housing: House Patient Tobacco Use Status: Never used Tobacco Smoked in Last 30 Days: No e-Cigarette/Vaping Use: Never Used Second Hand Smoke Exposure: No Advance Directives: No Advance Directives Information Provided: No Do you have a plan to hurt others: No Plan Patient : No Current 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 status: employed Cognitive needs: No Hearing needs: No Vision needs: Yes Review of Systems Const All systems reviewed & are unremarkable except as noted in HPI and below Physical Exam Vital Signs: Last Vital Signs Pulse 89 11/22/23 12:35 BP 134/80 11/22/23 12:35 Pulse Ox 97 11/22/23 12:35 Oxygen Delivery Method Room Air 11/22/23 12:35 BMI result Body Mass Index 36.4 Const General: cooperative, healthy appearing, comfortable, no acute distress, alert, awake, Physically active and well groomed; No anxious, diaphoretic, ill appearing, intoxicated appearing, poor hygiene or tired appearing Limitations: no limitations Resp Effort & Inspection: normal respiratory effort Cardio Rate: regular rate GI Palpation (GI): Soft to palpation, not firm, Tenderness to palpation present (GI) suprapubicly; not at McBurney's point, Ramos's sign negative and with no rebound tenderness, no guarding, not rigid and No hepatosplenomegaly present General: Yes no CVA tenderness Back/Spine/Pelvis Back: no CVA tenderness Skin Other: Good color, warm and dry Psych Appearance: grossly normal Mental Status: mental status grossly normal Speech and movement: Normal speech and movement present Affect: normal affect Attitude: cooperative Thought process: Normal thought process present Insight: Good insight present (Psych) Judgement: Good judgement present (Psych) Results AMB Urinalysis, Automated UA Leukoctes 0 Tim/uL Last Edit by Lawanda Arias CMA on 11/22/23 12:45 UA Nitrite Negative Last Edit by Lawanda Arias CMA on 11/22/23 12:45 UA Urobilinogen 0.2 mg/dL Last Edit by Lawanda Arias CMA on 11/22/23 12:45 UA Protein 15 mg/dL Last Edit by Lawanda Arias CMA on 11/22/23 12:45 UA pH 6.0 Last Edit by Lawanda Arias CMA on 11/22/23 12:45 UA Blood 10 John/uL Last Edit by Lawanda Arias CMA on 11/22/23 12:45 UA Specific [place] 1.025 Last Edit by Lawanda Arias CMA on 11/22/23 12:45 UA Ketone Negative Last Edit by Lawanda Arias CMA on 11/22/23 12:45 UA Bilirubin 0 mg/dL Last Edit by Lawanda Arias CMA on 11/22/23 12:45 UA Glucose 0 mg/dL Last Edit by Lawanda Arias CMA on 11/22/23 12:45 Results Reviewed Results Reviewed: Laboratory Last Values Urine pH (Auto) 6.0 11/22/23 12:44 Specific [place] (Auto) 1.025 11/22/23 12:44 Urine Protein (Auto) 15 mg/dL 11/22/23 12:44 Glucose (UA)(Auto) 0 mg/dL 11/22/23 12:44 Urine Ketones (Auto) Negative 11/22/23 12:44 Urine Blood (Auto) 10 John/uL 11/22/23 12:44 Urine Nitrite (Auto) Negative 11/22/23 12:44 Urine Bilirubin (Auto) 0 mg/dL 11/22/23 12:44 Urine Urobilinogen (Auto) 0.2 mg/dL 11/22/23 12:44 Leukocyte Esterase (Auto) 0 Tim/uL 11/22/23 12:44 Unremarkable except for small protein urea and hematuria Assessment & Plan Assessment & Plan (1) Cystitis: Code(s): N30.90 - Cystitis, unspecified without hematuria Plan Patient has recurrent suprapubic pressure and low back pain associated with increased urinary frequency, consistent with multiple episodes in the past year. She states that every few months symptoms occur. She has a history of rheumatoid arthritis also, and nephrolithiasis on the left side. She has no dysuria, stream changes, costovertebral angle tenderness, nausea vomiting or diarrhea, fever or chills, weakness, malaise or myalgias, or other associated systemic symptoms. We discussed that it is possible that this is interstitial cystitis, as she does not come back positive on urine dips or microscopy in the past. She has a urologist that she saw as recently as a month ago due to renal stone issues, and she was advised to follow up with them on Friday and let them know that she has another episode of bladder pressure and polyuria. She will also be written for a course of Augmentin twice a day for 7 days Orders: Orders XR abdomen 3V 11/22/23 R10.9 - Unspecified abdominal pain AMB Urinalysis Automated 11/22/23 Z13.9 - Encounter for screening, unspecified UA CC w/rflx Micro + Cult 11/22/23 R30.0 - Dysuria Medications: New amoxicillin-pot clavulanate 875-125 mg 1 tab PO BID 14 tabs 0RF Coding Level of Care Code Est Pt Level 4 (33166) Diagnoses Cystitis N30.90
== END 2023-11-22 14:47 | disposition home or self-care (01) ==
PROVIDERS: PCP Internal Medicine; Visit Provider Physician Assistant Medical
DX: N30.90 Cystitis, unspecified without hematuria (principal)
CPT/HCPCS: 81003; 99051; 99214

== ENCOUNTER 2023-11-22 13:21 | Outpatient (REF) | payer OTHER, SELFPAY ==
[2023-11-22 15:50] LABS: Appearance Urine Clear; Color Urine Yellow; Glucose Urine UA Negative (Negative); Leukocyte Esterase Urine Negative (Negative); Nitrite Urine Negative (Negative); Specific Gravity - Urine 1.025 (1.005-1.025); Urine Blood Negative (Negative); Urine Ketones Negative (Negative); Urine Protein Negative (Neg-Trace)
== END 2023-11-22 13:22 | disposition home or self-care (01) ==
LOC: HO.LAB 13:21
PROVIDERS: Visit Provider Physician Assistant Medical
DX: R30.0 Dysuria (principal)
CPT/HCPCS: 81003

== ENCOUNTER 2023-12-03 07:42 | Outpatient (REF) | payer OTHER, SELFPAY ==
[2023-12-03 10:58] LABS: Appearance Urine Turbid; Color Urine Yellow; Glucose Urine UA Negative (Negative); Leukocyte Esterase Urine Negative (Negative); Nitrite Urine Negative (Negative); Specific Gravity - Urine >= 1.030 (1.005-1.025); UMIC TRIGGER UA YES; Urine Blood Moderate (2+) (Negative); Urine Ketones Negative (Negative); Urine Protein 30 (1+) mg/dL (Neg-Trace)
[2023-12-03 11:09] LABS: Bacteria Urine None Seen (None Seen); Hyaline Casts Urine 0-2 /LPF (0-2); WBC Urine 0-5 /HPF (0-5)
== END 2023-12-03 07:43 | disposition home or self-care (01) ==
LOC: HO.HMGCLDS 07:42
PROVIDERS: PCP Internal Medicine; Visit Provider Urology
DX: N20.0 Calculus of kidney (principal); R30.0 Dysuria; R35.0 Frequency of micturition
CPT/HCPCS: 81001; 87086

== ENCOUNTER 2023-12-04 12:57 | Emergency (ER) | payer OTHER, SELFPAY ==
--- NOTE | ~2023-12-04 | CT_ITS ---
EXAMINATION: CT ABDOMEN AND PELVIS WITH CONTRAST CLINICAL INFORMATION: Urinary frequency lower abdominal pain COMPARISON: Ultrasound renal from 12/04/2023, CT abdomen from 09/08/2023 TECHNIQUE: Multidetector volumetric images were obtained from the superior aspect of the liver through the pubic symphysis following administration 85 mL of Omnipaque 350 intravenous contrast. Sagittal and coronal reformatted images were obtained on the technologist's workstation. Oral contrast: No This CT examination was performed using dose optimization techniques as appropriate, variously including the following: *Automated exposure control *Adjustment of mA and/or kV according to patient size (this includes techniques or standardized protocols for targeted exams where dose is matched to indication/reason for exam; i.e. extremities or head) *Use of iterative reconstruction technique DLP: 695 mGy-cm FINDINGS: LUNG BASES: No pneumothorax. No large pleural effusion. LIVER, GALLBLADDER, AND BILIARY TREE: Liver is enlarged measuring 20.5 cm. No focal hepatic lesion or biliary ductal dilatation is present. The gallbladder is surgically absent. PANCREAS: Unremarkable. SPLEEN: Unremarkable. ADRENAL GLANDS: Unremarkable. KIDNEYS AND URETERS: Right-sided nephrolithiasis or hydronephrosis. 2 mm calculus left renal lower pole without hydronephrosis. BLADDER: Unremarkable. GASTROINTESTINAL TRACT: Colonic diverticulosis without acute diverticulitis. The small and large bowel are unremarkable. The appendix is unremarkable. ABDOMINAL WALL: No significant hernia is appreciated. LYMPH NODES: No enlarged lymph nodes per size criteria. VASCULAR: Abdominal aorta is nonaneurysmal. PELVIC VISCERA: Anteverted uterus. OSSEOUS STRUCTURES: Multilevel degenerative changes of the thoracolumbar and lumbosacral spine. CT/CT abdomen pelvis w IV con IMPRESSION: 1. No acute process of the abdomen or pelvis identified. 2. Bilateral nephrolithiasis without hydronephrosis. 3. Enlarged liver measuring 20.5 cm. 4. Status post cholecystectomy. 5. Colonic diverticulosis without acute diverticulitis.
--- NOTE | ~2023-12-04 | US_ITS ---
EXAMINATION: US RETROPERITONEAL LIMITED (RENAL ONLY) CLINICAL INFORMATION: Bilateral flank pain.. COMPARISON: Renal ultrasound July 22, 2023. CT scan abdomen pelvis September 08, 2023 TECHNIQUE: Bilateral grayscale and color Doppler ultrasound exam of both kidneys. FINDINGS: RIGHT KIDNEY: 11.6 x 3.5 x 5.5 cm (SAG x AP x TRV). The kidney is normal in size, contour, and echogenicity. Renal cortical thickness is normal. No focal renal lesion. No hydronephrosis. Question of small nonobstructive stone in the lower pole of the right kidney measuring 3 mm. No stone was seen in the right kidney on the CAT scan September 08, 2023. LEFT KIDNEY: 11.2 x 4.5 x 5 cm (SAG x AP x TRV). The kidney is normal in size, contour, and echogenicity. Renal cortical thickness is normal. No focal renal lesion. No hydronephrosis. There is a nonobstructive 3 mm stone at the lower pole. This is unchanged since prior study. US/US renal BI IMPRESSION: 1. No acute abnormality. No hydronephrosis. 2. Small nonobstructive stone lower pole left kidney. This is unchanged since prior studies. 3. Question of small nonobstructive 3 mm stone lower pole right kidney. No stone was seen in the right kidney on the CAT scan September 08, 2023.
[2023-12-04 13:40] VITALS: BP 183/89; PULSE 91; RESP 16; TEMP 37.1; O2SAT 97; BMI 36.4
[2023-12-04 14:02] LABS: MANUAL DIFF FLAG NO
[2023-12-04 14:04] LABS: Basophils Absolute Auto 0.1 X10*3/uL (0.0-0.2); Eosinophils Absolute Auto 0.1 X10*3/uL (0.0-0.4); Eosinophils Percent Auto 1.5 % (0-4); Hematocrit 37.6 % (37.0-47.0); Imm Gran Abs Auto 0.01 X10*3/uL (0.00-0.03); Imm Gran Pct Auto 0.1 % (0.0-0.4); Lymphocytes Absolute Auto 3.3 X10*3/uL (1.2-4.9); Lymphocytes Percent Auto 40.5 % (20-40); Mean Corpuscular HGB Conc 34.6 g/dl (31.0-35.0); Mean Corpuscular Hemoglobin 32.7 pg (27.0-33.0); Mean Corpuscular Volume 94.7 fL (80.0-98.0); Mean Platelet Volume 10.5 fL (9.4-12.3); Monocytes Absolute Auto 0.9 X10*3/uL (0.1-1.2); Monocytes Percent Auto 11.2 % (2-11); Neutrophils Absolute Auto 3.7 x10*3/uL (2.0-8.3); Neutrophils Percent Auto 45.7 % (45-73); Platelet Count 316 X10*3/uL (160-400); Red Blood Count 3.97 X10*6/uL (4.20-5.50); Red Cell Distribution Width 11.5 % (11.0-16.0); White Blood Count 8.1 X10*3/uL (4.8-10.8)
[2023-12-04 14:22] LABS: Alanine Aminotransferase 118 U/L (0-31); Albumin Level 4.5 g/dL (3.5-5.0); Alkaline Phosphatase 72 U/L (39-117); Anion Gap 14 (12-20); Aspartate Amino Transferase 82 U/L (5-31); Bilirubin Total 0.6 mg/dL (0.0-1.0); Blood Urea Nitrogen 17 mg/dL (9-16); Calcium 10.2 mg/dL (8.4-10.2); Carbon Dioxide 25 mmol/L (22-29); Chloride 108 mmol/L (96-108); Creatinine Clr Calc Pharmacy 99.5; Estimated Glomerular Filt Rate > 60; Glucose Random 101 mg/dL (60-115); Potassium 3.8 mmol/L (3.3-5.1); Sodium 143 mmol/L (135-145); Total Protein 8.8 g/dL (6.5-8.0)
[2023-12-04 18:00] VITALS: BP 180/84; PULSE 86; RESP 18; TEMP 36.6; O2SAT 98
--- NOTE | 2023-12-04 18:00 | ED_ITS ---
HPI - Female Genitourinary General Chief complaint: Urogenital-Female Stated complaint: abd and back pain Time Seen by Provider: 12/04/23 20:17 Source: patient Mode of arrival: ambulatory Limitations: no limitations History of Present Illness HPI Narrative: Patient is a 47-year-old female who presents emergency department for evaluation of diffuse lower abdominal/lower back pain. She reports that this has been ongoing for a couple of weeks now. She states on 11/22/2023 she presented to an urgent care for evaluation of her symptoms, she reports having a urinalysis obtained which showed no evidence of infection she was however prescribed amoxicillin ?in case?. She reports a history of similar symptoms in the past, she was evaluated at urgent care and similarly had a negative urinalysis but was given a prescription for Macrobid and her symptoms resolved. She does report a history of known kidney stones. She admits to having urinary urgency but denies dysuria, hematuria, or foul smell. She denies abnormal vaginal discharge, abnormal vaginal bleeding, or concern for sexually transmitted infections. She denies any precipitating injury. Denies associated diarrhea, constipation, hematochezia, melena. She has been without fevers or chills. Denies red flag symptoms. She is tolerating oral intake. Related Data Home Medications ?Medication ?Instructions ?Recorded ?Confirmed ibuprofen 800 mg tablet 800 mg PO TID PRN joint pain 02/17/23 07/25/23 adalimumab 40 mg/0.4 mL 40 mg subcut Q2W 07/25/23 07/25/23 subcutaneous pen kit (Humira(CF) Pen) Previous Rx's ?Medication ?Instructions ?Recorded cholecalciferol (vitamin D3) 50 50 mcg PO BEDTIME #90 caps 11/29/22 mcg (2,000 unit) capsule ferrous sulfate 325 mg (65 mg 325 mg PO DAILY #90 tabs 07/25/23 iron) tablet lisinopril 5 mg tablet 5 mg PO DAILY #90 tabs 10/14/23 amoxicillin 875 mg-potassium 1 tab PO BID #14 tabs 11/22/23 clavulanate 125 mg tablet nitrofurantoin 100 mg PO Q12H 5 days #10 caps 12/04/23 monohydrate/macrocrystals 100 mg capsule (Macrobid) Allergies Allergy/AdvReac Type Severity Reaction Status Date / Time No Known Allergies Allergy Verified 12/04/23 13:44 Review of Systems 2 Review of Systems: Yes all other systems are reviewed and are negative FOR[facility]LY [facility] Past Medical History Attestation statement: The following information was validated with the patient. Source: old records reviewed Medical History Neck pain Overweight Anemia Nephrolithiasis Urinary frequency Annual physical exam Rheumatoid arthritis GERD (gastroesophageal reflux disease) Hypertension Surgical History History of arthroscopy of right knee History of section Chronic cholecystitis due to cholelithiasis with choledocholithiasis History of laparoscopic cholecystectomy (05/08/20) History of lumpectomy of right breast deliv NOS-unsp Family History Family History Father No problems noted. Mother HTN (hypertension) Osteoarthritis Brother No problems noted. Sister No problems noted. Sister No problems noted. Son No problems noted. Son No problems noted. Son No problems noted. Social History Social History Housing: House Patient Tobacco Use Status: Never used Tobacco Smoked in Last 30 Days: No e-Cigarette/Vaping Use: Never Used Second Hand Smoke Exposure: No Advance Directives: No Advance Directives Information Provided: No Do you have a plan to hurt others: No Plan Patient : No Current 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 status: employed Cognitive needs: No Hearing needs: No Vision needs: Yes Physical Exam 2 Vital Signs: Vital Signs: Last Vital Signs Temp 98.1 F 12/05/23 00:00 Pulse 72 12/05/23 00:00 Resp 18 12/05/23 00:00 BP 170/80 H 12/05/23 00:00 Pulse Ox 98 12/05/23 00:00 O2 Del Method Room Air 12/05/23 00:00 BMI result Body Mass Index 36.4 Appearance: Alert.?Oriented to person, place and time. No acute distress.?Normal affect. Eyes: Pupils equal, round and reactive to light.? ENT: Pharynx normal.?? Neck: Normal inspection.? Neck supple.?? CVS: Heart sounds normal. Normal heart rate and rhythm.? Pulses normal.?? Respiratory: No respiratory distress.? Lung sounds clear to auscultation bilaterally?? Abdomen: Soft with bilateral left lower quadrant tenderness upon palpation. No rigidity. No guarding. No rebound tenderness. No CVA tenderness, mild palpable tenderness across the lower lumbar region bilaterally. Normoactive bowel sounds. No pulsatile mass.?? Skin: Skin warm and dry.? Normal skin color. Extremities: No lower extremity edema. Neuro: Moves all extremities spontaneously. Sensation intact bilaterally. CN II- XII intact. No focal neuro deficits. Ambulates with normal steady gait. Course Course Course Narrative: This is an RME done by [facility]: Additional HPI, ROS, PE not included below will be deferred to primary provider. 47 yo female hx of current kidney stone on left side, pmh renal calculi, htn, chronic cholecystitis, GERD, RA, anemia presents with lower abd pain, increased frequency of urine, and back pain off and on for a few days . Denies foul odor with urination and dysurira. Followed by Dr. Alcala Appearance: Alert.? Oriented X3.? No acute cardiopulmonary distress distress.? Head: Normocephalic, atraumatic, no step-offs or deformities CVS: Pulses normal.? Respiratory: No respiratory distress.? Abdomen: Soft and nontender.? Skin: ? Normal skin color. Extremities: 5/5 strength to bilateral upper and lower extremities Back: No midline tenderness, no C-spine tenderness, full range of motion, No CVA tenderness bilaterally Neuro: Oriented X 3.? No motor deficit.? No sensory deficit. Medications Administered Discontinued Medications Generic Name Dose Route Start Last Admin Trade Name Connorq PRN Reason Stop Dose Admin Sodium Chloride 1,000 mls @ 999 mls/hr 12/04/23 21:00 12/04/23 23:20 Ns IV 12/04/23 22:00 Infused .Q1H1M KAMRAN Infusion Iohexol 85 ml 12/04/23 21:51 12/04/23 21:52 Iohexol 350 Mg/Ml 100 Ml Infus..Btl IV 12/04/23 21:52 85 ml ONCE ONE Administration Medical Decision Making Medical Decision Making MDM Narrative: Patient is a 47-year-old female who presents emergency department for evaluation of lower abdominal and lower back pain as per HPI. Overall she appears well, nontoxic, afebrile. On exam she has bilateral left and right lower quadrant tenderness upon palpation. Reviewed labs obtained prior to my assumption of care; CBC is without leukocytosis anemia or thrombocytopenia. No electrolyte derangement. No ARELY. Mildly elevated LFTs which have been seen previously, no right upper quadrant tenderness upon palpation nor associated nausea vomiting, suspect possible fatty liver, less likely to be acute hepatobiliary etiology. HCG is negative. Urinalysis is without evidence of infection, there is microscopic hematuria and she has known nephrolithiasis. Renal ultrasound was obtained which reveals nonobstructing stones in the lower renal pole. CT of the abdomen and pelvis was obtained for further evaluation; CT/CT abdomen pelvis w IV con IMPRESSION: 1. No acute process of the abdomen or pelvis identified. 2. Bilateral nephrolithiasis without hydronephrosis. 3. Enlarged liver measuring 20.5 cm. 4. Status post cholecystectomy. 5. Colonic diverticulosis without acute diverticulitis. These findings were discussed with patient and she verbalized understanding. Given her current urinary urgency and recent course of antibiotics, advised this may skew the results of initial urinalysis, lab was called and confirmed that culture be sent despite negative urinalysis. Patient was advised to follow-up closely with her primary care doctor to determine whether urine culture results are actually positive or not. Will send prescription for Macrobid to pharmacy as this has previously resolved her symptoms. We also discussed possibility of bacterial vaginosis mimicking signs of urinary tract infection, performed self swab in specimen was sent to the lab. Patient was advised that she would be contacted with positive results. Discussed worrisome signs and symptoms that would warrant re-evaluation in the emergency department. She is tolerating oral intake. At this time I feel that she is stable for discharge. Differential Diagnosis Differential Diagnoses: The differential diagnosis associated with the presentation includes (See narrative above) Admission/Observation Consideration of admission/observation: Escalation of care including admission/observation considered (See narrative above) Lab Data MDM Lab Attestation statement: I reviewed the patient's lab results. (See narrative above) 12/04/23 13:58 12/04/23 13:58 Labs: Lab Results 12/04/23 12/04/23 Range/Units 13:58 18:26 WBC 8.1 (4.8-10.8) X10*3/uL RBC 3.97 L (4.20-5.50) X10*6/uL Hgb 13.0 (12.0-16.0) g/dl Hct 37.6 (37.0-47.0) % MCV 94.7 (80.0-98.0) fL MCH 32.7 (27.0-33.0) pg MCHC 34.6 (31.0-35.0) g/dl RDW 11.5 (11.0-16.0) % Plt Count 316 (160-400) X10*3/uL MPV 10.5 (9.4-12.3) fL Immature Gran % (Auto) 0.1 (0.0-0.4) % Neut % (Auto) 45.7 (45-73) % Lymph % (Auto) 40.5 H (20-40) % [place] % (Auto) 11.2 H (2-11) % Eos % (Auto) 1.5 (0-4) % Baso % (Auto) 1.0 (0-2) % Lymph # (Auto) 3.3 (1.2-4.9) X10*3/uL [place] # (Auto) 0.9 (0.1-1.2) X10*3/uL Eos # (Auto) 0.1 (0.0-0.4) X10*3/uL Baso # (Auto) 0.1 (0.0-0.2) X10*3/uL Abs Immat Gran (auto) 0.01 (0.00-0.03) X10*3/uL Absolute Neuts (auto) 3.7 (2.0-8.3) x10*3/uL Absolute Nucleated RBC 0.000 (0.0-0.012) X10*3/uL Nucleated RBC % (auto) 0.0 (0.0-0.2) /100WBC Sodium 143 (135-145) mmol/L Potassium 3.8 (3.3-5.1) mmol/L Chloride 108 (96-108) mmol/L Carbon Dioxide 25 (22-29) mmol/L Anion Gap 14 (12-20) BUN 17 H (9-16) mg/dL Creatinine 0.73 (0.5-1.4) mg/dL Estim Creat Clear Calc 99.5 Estimated GFR > 60 Random Glucose 101 (60-115) mg/dL Calcium 10.2 (8.4-10.2) mg/dL Total Bilirubin 0.6 (0.0-1.0) mg/dL AST 82 H (5-31) U/L ALT 118 H (0-31) U/L Alkaline Phosphatase 72 (39-117) U/L Total Protein 8.8 H (6.5-8.0) g/dL Albumin 4.5 (3.5-5.0) g/dL Beta HCG, Quant < 2 mIU/mL Urine Color Yellow Urine Appearance Clear Urine pH 5.5 (5.0-9.0) Ur Specific [place] 1.025 (1.005-1.025) Urine Protein Trace (Neg-Trace) mg/dL Urine Glucose (UA) Negative (Negative) mg/dL Urine Ketones Negative (Negative) mg/dL Urine Blood Small (1+) H (Negative) Urine Nitrite Negative (Negative) Ur Leukocyte Esterase Negative (Negative) Urine RBC 3-5 H (0-2) /HPF Urine WBC 0-5 (0-5) /HPF Ur Squamous Epith Cells 6-10 (0-2) /HPF Urine Bacteria None Seen (None Seen) Hyaline Casts 0-2 (0-2) /LPF Independent Interpretation I performed an independent interpretation of an: CT Scan (Diverticulitis, no appendicitis) Radiology Impression Discussion of test interpretation with radiology: I have reviewed the radiologist's reading. Radiologist Impression: US/US renal BI IMPRESSION: 1. No acute abnormality. No hydronephrosis. 2. Small nonobstructive stone lower pole left kidney. This is unchanged since prior studies. 3. Question of small nonobstructive 3 mm stone lower pole right kidney. No stone was seen in the right kidney on the CAT scan September 08, 2023. Independent Historian Clinical information obtained from an independent historian. History obtained from or confirmed by: Spouse Prescription Management I considered prescription management with: Antibiotic Discharge Plan Discharge Clinical Impression: Abdominal pain Patient Disposition: Home, Self-Care Additional Instructions: As discussed, please speak with your primary care provider next week regarding the results of your urine culture. A prescription for Macrobid was sent to your pharmacy as this has resolved your symptoms previously. Testing today was sent for bacterial vaginosis, these test results will not be available today, if there are positive results who received a phone call from the hospital. You can take ibuprofen 200 mg, 3 tablets (600mg) every 6-8 hours as needed for pain, in addition to Tylenol 500 mg, 2 tablets (1,000mg) every 4-6 hours as needed for pain, but not to exceed 3 doses daily (3,000mg).? Return to emergency department any new or worsening symptoms or concerns. Prescriptions: New nitrofurantoin monohyd/m-cryst [Macrobid] 100 mg capsule 100 mg PO Q12H 5 Days Qty: 10 0RF Rx Instructions: must administer with a meal/food No Action cholecalciferol (vitamin D3) 50 mcg (2,000 unit) capsule 50 mcg PO BEDTIME Qty: 90 3RF lisinopril 5 mg tablet 5 mg PO DAILY Qty: 90 3RF amoxicillin-pot clavulanate 875-125 mg tablet 1 tab PO BID Qty: 14 0RF ibuprofen 800 mg tablet 800 mg PO TID PRN (Reason: joint pain) Humira(CF) Pen 40 mg/0.4 mL pen injector kit 40 mg subcut Q2W ferrous sulfate 325 mg (65 mg iron) tablet 325 mg PO DAILY Qty: 90 3RF Referrals: Kelly Hayden MD [Primary Care Provider] - Stand Alone Forms: Work/School Release Interventions: ED Discharge Assessment Last Done: 12/05/23 00:00 Discharge Date/Time: 12/05/23 00:00 Print Language: Moroccan
[2023-12-04 18:32] LABS: Appearance Urine Clear; Color Urine Yellow; Glucose Urine UA Negative (Negative); Leukocyte Esterase Urine Negative (Negative); Nitrite Urine Negative (Negative); PH 5.5 (5.0-9.0); Specific Gravity - Urine 1.025 (1.005-1.025); UMIC TRIGGER UACC YES; Urine Blood Small (1+) (Negative); Urine Ketones Negative (Negative); Urine Protein Trace mg/dL (Neg-Trace)
[2023-12-04 19:11] LABS: Bacteria Urine None Seen (None Seen); Hyaline Casts Urine 0-2 /LPF (0-2); WBC Urine 0-5 /HPF (0-5)
[2023-12-04] MEDS: 0.9 % Sodium Chloride 1,000 ML 999 ML IV (21:20)
[2023-12-04 21:29] VITALS: BP 169/82; PULSE 70; RESP 20; TEMP 37; O2SAT 98
[2023-12-04] MEDS: iohexoL 350 MG/ML 100 ML INFUS..BTL 85 ML IV (21:52)
[2023-12-04 22:21] LABS: HCG Quantitative < 2 mIU/mL
[2023-12-05] VITALS: BP 170/80; PULSE 72; RESP 18; TEMP 36.7; O2SAT 98
[2023-12-05 10:58] LABS: Bacterial Vaginosis PCR NEGATIVE (Negative); Candida Group PCR DETECTED (Not Detect); Candida glab krusei PCR NOT DETECTED (Not Detect); Trichomonas vaginalis PCR NOT DETECTED (Not Detect)
== END 2023-12-05 | disposition home or self-care (01) ==
PROVIDERS: Nurse Practitioner Family; Physician Assistant; Emergency Provider Emergency Medicine; PCP Internal Medicine
DX: R10.30 Lower abdominal pain, unspecified (principal); M54.50 Low back pain, unspecified; R35.0 Frequency of micturition; I10 Essential (primary) hypertension; Z87.442 Personal history of urinary calculi
CPT/HCPCS: 0352U; 36415; 74177; 76775; 80053; 81001; 84702; 85025; 87086; 96360; 96361; 99284; Q9967

== ENCOUNTER 2024-01-12 12:40 | Outpatient (AMB) | payer OTHER, SELFPAY ==
[2024-01-12 13:10] VITALS: BP 139/88; PULSE 88; O2SAT 96; BMI 37.1
--- NOTE | 2024-01-12 13:10 | A.OFFPC_ITS ---
Vital Signs 01/12/24 13:10 Height 5 ft 2 in Weight 203 lb BMI 37.1 BP 139/88 Blood Pressure Location Rt brachial Position Sitting Pulse 88 Pulse Source Pulse Oximeter Pulse Oximetry (%) 96 Oxygen Delivery Method Room Air Intake Visit Reasons: Annual PE Intake Note: Pt is here today for her pE Allergies No Known Allergies Allergy (Verified 01/12/24 13:12) Medication List - Last Reconciled 01/12/24 by Kelly Hayden MD adalimumab (Humira(CF) Pen) 40 mg subcut Q2W cholecalciferol (vitamin D3) 50 mcg PO BEDTIME ferrous sulfate 325 mg PO DAILY ibuprofen 800 mg PO TID PRN lisinopril 5 mg PO DAILY Tobacco use date assessed: 01/12/24 Dental Screening Dental Screen Date: 01/12/24 Did you have a dental visit in the last 12 months?: Yes Did you have a dental problem in the last 6 months where you did not have access to dental care?: No Was dental information given to patient?: Patient has dentist HPI Annual PE HPI Details Patient presents for PE. She complains of hot flashes for the last few months. [facility] Medical History Neck pain Overweight Anemia Nephrolithiasis Urinary frequency Annual physical exam Rheumatoid arthritis GERD (gastroesophageal reflux disease) Hypertension Surgical History History of arthroscopy of right knee History of section Chronic cholecystitis due to cholelithiasis with choledocholithiasis History of laparoscopic cholecystectomy (05/08/20) History of lumpectomy of right breast deliv NOS-unsp Family History Father No problems noted. Mother HTN (hypertension) Osteoarthritis Brother No problems noted. Sister No problems noted. Sister No problems noted. Son No problems noted. Son No problems noted. Son No problems noted. Social History Housing: House Patient Tobacco Use Status: Never used Tobacco e-Cigarette/Vaping Use: Never Used Second Hand Smoke Exposure: No Current 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 status: employed Cognitive needs: No Hearing needs: No Vision needs: Yes Questionnaire Thrive Questionnaire Date Thrive assessed: 07/25/23 ISAK-7 AMB Questionnaire ISAK-7 Date ISAK - 7 assessed: 07/25/23 Source: Developed by Drs. Romeo Mendoza, Shala Davis, Philip Fry and colleagues, with an educational philip from [employer]. Review of Systems Const All systems reviewed & are unremarkable except as noted in HPI and below Eyes Reports no additional complaints ENT Reports no additional complaints Card Reports no additional complaints Resp Reports no additional complaints GI Reports no additional complaints Reports no additional complaints Physical exam (Primary Care) Vital Signs: Last Vital Signs Pulse 88 01/12/24 13:10 BP 152/92 H 01/12/24 13:10 Pulse Ox 96 01/12/24 13:10 Oxygen Delivery Method Room Air 01/12/24 13:10 BMI result Body Mass Index 37.1 Tobacco/Smoking Status: Tobacco use Status Tobacco use date assessed 01/12/24 01/12/24 13:12 Patient Tobacco Use Status Never used Tobacco 01/12/24 13:12 e-Cigarette/Vaping Use Never Used 01/12/24 13:12 Thrive Assessment: Date of Thrive Assessment Date Thrive assessed 07/25/23 01/12/24 13:12 Const General: no acute distress HENMT Head: Yes normal to inspection Ears: hearing grossly normal bilaterally Face and sinus: Yes normal facial exam Mouth: Normal oral and palatal mucosa present Eyes General: appearance normal, both eyes and all related structures Neck Neck: Yes no lymphadenopathy and Yes supple Resp Effort & Inspection: normal respiratory effort Auscultation: clear to auscultation bilaterally Cardio Rhythm: regular rhythm Heart sounds: S1 normal heart sound present and S2 normal heart sound present GI Inspection: Yes normal to inspection Palpation (GI): Soft to palpation Percussion: Yes normal to percussion Auscultation: normal bowel sounds Assessment and Plan Assessment & Plan (1) Elevated LFTs: Code(s): R79.89 - Other specified abnormal findings of blood chemistry Plan: Patient was advised to avoid NSAIDs, follow low saturated fat low of simple carbohydrates diet increase exercise and lose weight, liver ultrasound will be obtained to evaluate for fatty liver. (2) Hypertension: Code(s): I10 - Essential (primary) hypertension Plan: Low-sodium diet increase exercise weight loss discussed with the patient lisinopril will be increased to 10 mg a day patient will follow-up in 6 weeks (3) Rheumatoid arthritis: Comment: Follow-up with arthritis treatment center Code(s): M06.9 - Rheumatoid arthritis, unspecified Plan: Follow-up with rheumatology (4) Annual physical exam: Code(s): Z00.00 - Encounter for general adult medical examination without abnormal findings Plan: Well-balanced diet regular exercise weight loss discussed with the patient. She will be referred to GI for colonoscopy. 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 Orders: Orders Hepatitis B,C Profile Today R7.89 - Other specified abnormal findings of blood chemistry Liver Kidney Microsomal Ab Today R7.89 - Other specified abnormal findings of blood chemistry Alpha Fetoprotein Today R7.89 - Other specified abnormal findings of blood chemistry Comprehensive [place]. Panel Fast 6 Weeks I10 - Essential (primary) hypertension, M06.9 - Rheumatoid arthritis, unspecified, Z00.00 - Encounter for general adult medical examination without abnormal findings Liver Panel Today R7.89 - Other specified abnormal findings of blood chemistry IRON PROFILE Today R7.89 - Other specified abnormal findings of blood chemistry US retroperitoneal limited Today R79.89 - Other specified abnormal findings of blood chemistry Referrals Gastroenterology Referral Z00.00 - Encounter for general adult medical examination without abnormal findings Medications: New lisinopril 10 mg PO DAILY 90 tabs 0RF Refilled cholecalciferol (vitamin D3) 50 mcg PO BEDTIME 90 caps 3RF Coding Level of Care Code Est Pt Prev Care 40-64y(76423) Diagnoses Elevated LFTs R79.89 Hypertension I10 Rheumatoid arthritis M06.9 Annual physical exam Z00.00
== END 2024-01-12 13:58 | disposition home or self-care (01) ==
PROVIDERS: PCP Internal Medicine; Visit Provider Internal Medicine
DX: Z00.00 Encounter for general adult medical examination without abnormal findings (principal); R79.89 Other specified abnormal findings of blood chemistry; I10 Essential (primary) hypertension; M06.9 Rheumatoid arthritis, unspecified
CPT/HCPCS: 99396

== ENCOUNTER 2024-01-12 14:01 | Outpatient (REF) | payer OTHER, SELFPAY ==
[2024-01-12 16:29] LABS: Alanine Aminotransferase 85 U/L (0-31); Albumin Level 4.5 g/dL (3.5-5.0); Alkaline Phosphatase 66 U/L (39-117); Aspartate Amino Transferase 68 U/L (5-31); Bilirubin Direct 0.2 mg/dL (0.0-0.5); Bilirubin Total 0.6 mg/dL (0.0-1.0); Iron 137 mcg/dL (30-160); Percent Iron Saturation 43 % (15-50); Total Iron Binding Capacity 319 mcg/dL (228-428); Total Protein 8.7 g/dL (6.5-8.0); Unsaturated Iron Binding 182 ug/dL
[2024-01-13 08:22] LABS: HBS Num1 2.04 mIU/mL (0-7.99); HBc Num1 0.42 S/CO (0.00-0.79); HBsAGNum1 0.66 S/CO (0.00-0.99); Hepatitis B Core Antibody Nonreactive (Nonreactive); Hepatitis B Surface Antigen Negative (Negative); ~HepC Num1 0.31 S/CO (0.00-0.79); ~Hepatitis B Surface Antibody NONREACTIVE (Nonreactive); ~Hepatitis C Antibody Nonreactive (Nonreactive)
[2024-01-14 09:47] LABS: Alpha Fetoprotein 2.6 ng/mL
[2024-01-19 14:37] LABS: Liver Kidney Microsomal Ab <=20.0 U (<=20.0)
== END 2024-01-12 14:02 | disposition home or self-care (01) ==
LOC: HO.HMGCLDS 14:01
PROVIDERS: PCP Internal Medicine; Visit Provider Internal Medicine
DX: R79.89 Other specified abnormal findings of blood chemistry (principal)
CPT/HCPCS: 36415; 80076; 82105; 83540; 86376; 86704; 86706; 86803; 87340

== ENCOUNTER 2024-02-05 08:16 | Outpatient (REF) | payer OTHER, SELFPAY ==
--- NOTE | ~2024-02-05 | US_ITS ---
EXAMINATION: US ABDOMEN COMPLETE CLINICAL INFORMATION: Other specified abnormal findings of blood chemistry. COMPARISON: CT abdomen and pelvis 12/04/2023. Renal ultrasound 12/04/2023 and 07/22/2023. TECHNIQUE: Real-time imaging of the abdominal viscera. Limited visualization due to bowel gas. FINDINGS: PANCREAS: Limited visualization of pancreatic tail and head. Imaged portion of pancreatic body is unremarkable. ABDOMINAL AORTA: Imaged portions of the abdominal aorta are within normal limits in caliber. INFERIOR VENA CAVA: Visualized portions are normal. LIVER: Increased hepatic parenchymal heterogeneity and echogenicity could be associated with hepatocellular disease/hepatic steatosis and substantially limits visualization. Correlation with liver function tests and clinical exam recommended to determine further management. GALLBLADDER: Surgically absent. COMMON BILE DUCT: Normal in caliber measuring 0.22 cm in diameter. RIGHT KIDNEY: No hydronephrosis. No renal calculi. Limited visualization. The kidney measures 11.2 cm in maximum dimension. LEFT KIDNEY: 0.3 cm mid pole calculus. Left renal lower pole anechoic area may represent mild focal caliectasis. Limited visualization. The kidney measures 10.4 cm in maximum dimension. SPLEEN: Normal. The spleen measures 9.2 cm in maximum dimension. FREE FLUID: None. US/US abdomen complete IMPRESSION: 1. Increased hepatic parenchymal heterogeneity and echogenicity could be associated with hepatocellular disease/hepatic steatosis and substantially limits visualization. Correlation with liver function tests and clinical exam recommended to determine further management. 2. Left renal 0.3 cm mid pole calculus. Left renal lower pole anechoic area may represent mild focal caliectasis.
== END 2024-02-05 08:17 | disposition home or self-care (01) ==
LOC: HO.HMGCX 08:16
PROVIDERS: PCP Internal Medicine; Visit Provider Internal Medicine
DX: R79.89 Other specified abnormal findings of blood chemistry (principal)
CPT/HCPCS: 76700

== ENCOUNTER 2024-03-02 09:22 | Outpatient (AMB) | payer OTHER, SELFPAY ==
--- NOTE | 2024-03-02 09:35 | A.OFFPC_ITS ---
Vital Signs 03/02/24 09:38 Height 5 ft 2 in Weight 202 lb BMI 36.9 BP 120/82 Blood Pressure Location Lt brachial Position Sitting Pulse 77 Pulse Source Pulse Oximeter Pulse Oximetry (%) 96 Oxygen Delivery Method Room Air Intake Visit Reasons: 6WK F/U Intake Note: Pt is here today for 6 weeks follow up visit. Allergies No Known Allergies Allergy (Verified 03/02/24 09:39) Tobacco use date assessed: 01/12/24 Dental Screening Dental Screen Date: 01/12/24 HPI 6WK F/U HPI Details Patient presents for the follow-up on hypertension better controlled on lisinopril. She follows up with asset protection representative for RA controlled on Humira. Patient reports persistent discomfort in her right lower rib area on and off positional for a few months. Patient denies abdominal pain nausea vomiting flank pain dysuria hematuria. [facility] Medical History Neck pain Overweight Anemia Nephrolithiasis Urinary frequency Annual physical exam Rheumatoid arthritis GERD (gastroesophageal reflux disease) Hypertension Surgical History History of arthroscopy of right knee History of section Chronic cholecystitis due to cholelithiasis with choledocholithiasis History of laparoscopic cholecystectomy (05/08/20) History of lumpectomy of right breast deliv NOS-unsp Family History Father No problems noted. Mother HTN (hypertension) Osteoarthritis Brother No problems noted. Sister No problems noted. Sister No problems noted. Son No problems noted. Son No problems noted. Son No problems noted. Social History Housing: House Patient Tobacco Use Status: Never used Tobacco e-Cigarette/Vaping Use: Never Used Second Hand Smoke Exposure: No Current 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 status: employed Cognitive needs: No Hearing needs: No Vision needs: Yes Questionnaire PHQ-9 Over the last 2 weeks, how often have you been bothered by any of the following problems? 1. Little interest or pleasure in doing things: not at all 2. Feeling down, depressed, or hopeless: not at all 3. Trouble falling or staying asleep, or sleeping too much: not at all 4. Feeling tired or having little energy: not at all 5. Poor appetite or overeating: not at all 6. Feeling bad about yourself - or that you are a failure or have let yourself or your family down: not at all 7. Trouble concentrating on things, such as reading the newspaper or watching television: not at all 8. Moving or speaking so slowly that other people could have noticed. Or the opposite - being so fidgety or restless that you have been moving around a lot more than usual: not at all 9. Thoughts that you would be better off or of hurting yourself in some way: not at all Total score: 0 Depression Screening Interpretation: Negative Depression Screening Done: Yes Source: Developed by Drs. Romeo Mendoza, Shala Davis, Philip Fry and colleagues, with an educational philip from [employer] Thrive Questionnaire Date Thrive assessed: 02/24/24 I am a: Patient What is your living situation today?: I have a steady place to live Within the past 12 months, did the food you bought not last and you didn't have the money to get more?: Never true Within the past 12 months, did you worry whether your food would run out before you got money to buy more?: Never true Do you have trouble paying for medicines?: No Do you have trouble getting transportation to medical appointments?: No Do you have trouble paying your heating and electricity bill?: No Do you have trouble taking care of your child, family member or friend?: No Do you have trouble with day-to-day activities such as bathing, preparing meals, shopping, managing finances, etc.?: No Are you currently unemployed and looking for a job?: No Are you interested in more education?: No Please select the resources that you would like help with: None Currently or been in a relationship where the following occur: No concerns reported THRIVE Score: 0 AUDIT C Alcohol Use Questionnaire (AUDIT-C) 1. How often do you have a drink containing alcohol?: Never 3. How often do you have six or more drinks on one occasion?: Never Total Score: 0 ISAK-7 AMB Questionnaire ISAK-7 Date ISAK - 7 assessed: 07/25/23 Feeling nervous, anxious, or on edge: 0 = Not at all Not being able to stop or control worryin = Not at all Worrying too much about different things: 0 = Not at all Trouble relaxin = Not at all Being so restless that it is hard to sit still: 0 = Not at all Becoming easily annoyed or irritable: 0 = Not at all Feeling afraid as if something awful might happen: 0 = Not at all Total ISAK-7 score (0-4 normal; 5-9 mild; 10-14 moderate; 15-21 severe): 0 Source: Developed by Drs. Romeo Mendoza, Shala Davis, Philip Fry and colleagues, with an educational philip from [employer] Review of Systems Const All systems reviewed & are unremarkable except as noted in HPI and below Eyes Reports no additional complaints ENT Reports no additional complaints Card Reports no additional complaints Resp Reports no additional complaints GI Reports no additional complaints Reports no additional complaints Physical exam (Primary Care) Vital Signs: Last Vital Signs Pulse 77 03/02/24 09:38 BP 120/82 03/02/24 09:38 Pulse Ox 96 03/02/24 09:38 Oxygen Delivery Method Room Air 03/02/24 09:38 BMI result Body Mass Index 36.9 Tobacco/Smoking Status: Tobacco use Status Tobacco use date assessed 01/12/24 03/02/24 09:36 Patient Tobacco Use Status Never used Tobacco 03/02/24 09:36 e-Cigarette/Vaping Use Never Used 03/02/24 09:36 PHQ-9: PHQ-9 Score PHQ-9: Total score 0 03/02/24 09:47 Depression Screening Interpretation: Negative Thrive Assessment: Date of Thrive Assessment Date Thrive assessed 02/24/24 03/02/24 09:36 Currently or been in a relationship where the following occur: No concerns reported Const General: no acute distress Neck Neck: Yes supple Chest Other: Reproducible tenderness in right lower thoracic paraspinal region and intercostal posterior right lower chest Resp Effort & Inspection: normal respiratory effort Auscultation: clear to auscultation bilaterally Assessment and Plan Assessment & Plan (1) Hypertension: Code(s): I10 - Essential (primary) hypertension Plan: Continue Lisnopril (2) Anemia: Comment: Iron deficiency due to heavy menses Code(s): D64.9 - Anemia, unspecified Plan: Monitor CBC and iron. (3) Elevated LFTs: Comment: Ultrasound consistent with fatty liver Code(s): R79.89 - Other specified abnormal findings of blood chemistry Plan: Weight loss decreased simple carbohydrates intake, avoidance of alcohol and NSAIDs discussed with the patient. Follow-up in 3 months with a fasting labs before (4) Right-sided chest wall pain: Code(s): R07.89 - Other chest pain Plan: Referred to physical therapy Orders: Orders Comprehensive [place]. Panel Fast 3 Months D64.9 - Anemia, unspecified, I10 - Essential (primary) hypertension, R79.89 - Other specified abnormal findings of blood chemistry Complete Blood Count Auto Diff 3 Months D64.9 - Anemia, unspecified, I10 - Essential (primary) hypertension, R79.89 - Other specified abnormal findings of blood chemistry TSH reflex Free T4 3 Months D64.9 - Anemia, unspecified, I10 - Essential (primary) hypertension, R79.89 - Other specified abnormal findings of blood chemistry IRON PROFILE 3 Months D64.9 - Anemia, unspecified, I10 - Essential (primary) hypertension, R79.89 - Other specified abnormal findings of blood chemistry Lipid Panel 3 Months D64.9 - Anemia, unspecified, I10 - Essential (primary) hypertension, R79.89 - Other specified abnormal findings of blood chemistry PT Evaluation and Treatment Today R07.89 - Other chest pain Coding Level of Care Code Est Pt Level 4 (63851) Diagnoses Hypertension I10 Anemia D64.9 Elevated LFTs R79.89 Right-sided chest wall pain R07.89
[2024-03-02 09:38] VITALS: BP 120/82; PULSE 77; O2SAT 96; BMI 36.9
== END 2024-03-02 10:15 | disposition home or self-care (01) ==
PROVIDERS: PCP Internal Medicine; Visit Provider Internal Medicine
DX: I10 Essential (primary) hypertension (principal); D64.9 Anemia, unspecified; R79.89 Other specified abnormal findings of blood chemistry; R07.89 Other chest pain
CPT/HCPCS: 99214

== ENCOUNTER 2024-03-09 09:40 | Outpatient (AMB) | payer OTHER, SELFPAY ==
--- NOTE | 2024-03-09 09:43 | MHC.OFFVIS ---
Vital Signs 03/09/24 09:47 Height 5 ft 2 in Weight 200 lb BMI 36.6 BP 110/70 Intake Visit Reasons: New patient Annual/do not reschedule x 2 Ice Seller Required: No Information Interpreted: non-clinical & clinical Cdl Bulk Driver: Cdl Bulk Driver Present (Reema Leo CAITLYN) Accompanied by: Self / Same As Patient Allergies No Known Allergies Allergy (Verified 03/09/24 09:48) Post menopausal: Yes HPI Comments Details: Presenting for annual exam. No complaints. Last Pap/HPV? Last Mammogram was BI-RADS 2 in 07/30 The patient is scheduled for colonoscopy in 04/29 COUNT INCLUDES THE [facility] Medical History Neck pain Overweight Anemia Nephrolithiasis Urinary frequency Annual physical exam Rheumatoid arthritis GERD (gastroesophageal reflux disease) Hypertension Surgical History Hx of tubal ligation History of arthroscopy of right knee History of section Chronic cholecystitis due to cholelithiasis with choledocholithiasis History of laparoscopic cholecystectomy (05/08/20) History of lumpectomy of right breast deliv NOS-unsp Family History Father No problems noted. Mother HTN (hypertension) Osteoarthritis Brother No problems noted. Sister No problems noted. Sister No problems noted. Son No problems noted. Son No problems noted. Son No problems noted. 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 Sexually active: Yes Sexual orientation: Straight/Heterosexual Gender identity: Female Cognitive needs: No Hearing needs: No Vision needs: Yes Female Reproductive History Menstrual control method: permanent sterilization Total pregnancies: 4 Full term: 3 Number of Living Children: 1 Date of Mammogram: 07/08/23 Review of Systems Const All systems reviewed & are unremarkable except as noted in HPI and below Card Reports as per HPI Resp Reports as per HPI GI Reports as per HPI and Reports no additional complaints Reports as per HPI Physical Exam Vital Signs: Last Vital Signs BP 110/70 03/09/24 09:47 BMI result Body Mass Index 36.6 Const General: cooperative, healthy appearing and comfortable Chest Chest palpation & inspection: normal inspection of the chest and normal palpation of entire chest wall Breast/axilla inspection: normal inspection of the breasts and normal inspection of the axillae Breast/axilla palpation: normal palpation of the breasts, normal palpation of the axillae and no axillary lymphadenopathy Resp Effort & Inspection: normal respiratory effort Auscultation: clear to auscultation bilaterally Percussion: percussion normal Cardio Palpation: normal PMI Rate: regular rate Rhythm: regular rhythm Heart sounds: no murmurs and no rubs Peripheral pulses: Peripheral pulses 2+ throughout GI Inspection: Yes normal to inspection Palpation (GI): Soft to palpation, nontender, no guarding, not rigid and No hepatosplenomegaly present Percussion: Yes normal to percussion Auscultation: normal bowel sounds Rectal Exam - Female: deferred General: Yes bladder normal to palpation External Female Exam: No lesion Speculum Exam - Vagina: normal appearance of the vagina, normal palpation, normal vaginal discharge and not erythematous Speculum Exam - Cervix: normal appearance of the cervix and normal palpation Bimanual exam- vagina & uterus: normal bimanual exam, normal palpation, uterine size normal, bladder normal to palpation, consistency normal and normal palpation Bimanual Exam- Adnexa, other: normal adnexae, no masses and no tenderness Assessment & Plan Assessment & Plan (1) Well woman exam: Code(s): Z01.419 - Encounter for gynecological examination (general) (routine) without abnormal findings Category: Medical Plan: Cotesting done. Instructions given the patient to schedule next screening Mammogram in 07/30. Counseled the patient about the recommended dietary allowance of 1000 mg of Calcium & 600 IU of vitamin D. The patient was instructed to perform monthly self-breast exams and to schedule an annual exam in a year; All questions answered and the patient verbalized understanding. Instructed the patient to schedule annual exam in a year Coding Level of Care Code New Pt Prev Care 40-64y(43939) Diagnoses Well woman exam Z01.419
[2024-03-09 09:47] VITALS: BP 110/70; BMI 36.6
== END 2024-03-09 10:12 | disposition home or self-care (01) ==
PROVIDERS: PCP Internal Medicine; Visit Provider Obstetrics & Gynecology
DX: Z01.419 Encounter for gynecological examination (general) (routine) without abnormal findings (principal)
CPT/HCPCS: 99386

== ENCOUNTER 2024-03-09 09:40 | Outpatient (REF) | payer OTHER, SELFPAY ==
[2024-03-11 13:14] LABS: HPV mRNA E6/E7 Not Detected (Not Detected)
== END 2024-03-09 09:41 | disposition home or self-care (01) ==
LOC: HO.LNP 09:40
PROVIDERS: PCP Internal Medicine; Visit Provider Obstetrics & Gynecology
DX: Z01.419 Encounter for gynecological examination (general) (routine) without abnormal findings (principal)
CPT/HCPCS: 87624; 88175; 99386

== ENCOUNTER 2024-04-15 14:12 | Outpatient (AMB) | payer OTHER, SELFPAY ==
[2024-04-15 14:12] VITALS: BP 132/82; PULSE 84; O2SAT 98; BMI 37.4
--- NOTE | 2024-04-15 14:12 | A.OFFVIS_ITS ---
Vital Signs 04/15/24 14:12 Height 5 ft 2 in Weight 204 lb 9.423 oz BMI 37.4 BP 132/82 Blood Pressure Location Lt brachial Position Sitting Pulse 84 Pulse Source Pulse Oximeter Pulse Oximetry (%) 98 Oxygen Delivery Method Room Air Intake Visit Reasons: Colonoscopy Screening Intake Note: Francisca presents in office today for a scheduled colo consult. CC; Pt has hx of GERD and Anemia + Elevated LFTs. Pt denies any sx or concerns at this time. Pt denies any prior hx of colo or egd. Pt states that they were referred by their PCP based on age related concerns. Route Driver Required: No Allergies No Known Allergies Allergy (Verified 04/15/24 14:16) HPI HPI Colonoscopy Screening: Details: 48 year old? female with past medical history of hypertension, GERD, chronic cholecystitis, status post cholecystectomy, rheumatoid arthritis, nephrolithiasis, anemia, obesity is here today for pre colonoscopy screening.? Patient was sent to us by her PCP.? This is her first colonoscopy screening.? Patient denies any gastrointestinal symptoms at present.? Patient reports symptoms of acid reflux and right sided abdominal pain resolved after cholecystectomy. Denies any personal or family history of gastrointestinal disease, colon polyps, or CRC.? Denies history of difficulty with sedation or anesthesia in the past.? Negative for history of sleep apnea.? Denies any history of cardiac, renal, pulmonary, or hepatic disease.?? No history of infectious? diseases like hepatitis A, B, C, HIV or tuberculosis.? Patient is not on any anticoagulation ON LICENSE OF [facility] Medical History Neck pain Overweight Anemia Nephrolithiasis Urinary frequency Annual physical exam Rheumatoid arthritis GERD (gastroesophageal reflux disease) Hypertension Surgical History Hx of tubal ligation History of arthroscopy of right knee History of section Chronic cholecystitis due to cholelithiasis with choledocholithiasis History of laparoscopic cholecystectomy (05/08/20) History of lumpectomy of right breast deliv NOS-unsp Family History Father No problems noted. Mother HTN (hypertension) Osteoarthritis Brother No problems noted. Sister No problems noted. Sister No problems noted. Son No problems noted. Son No problems noted. Son No problems noted. 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 Sexual orientation: Straight/Heterosexual Gender identity: Female Cognitive needs: No Hearing needs: No Vision needs: Yes Review of Systems Const Denies weight gain and Denies weight loss ENT Reports no additional complaints, Denies dysphagia and Denies odynophagia Card Reports no additional complaints Resp Reports no additional complaints GI Denies abdominal pain, Denies belching, Denies melena, Denies bloating, Denies change in bowel habits, Denies dysphagia, Denies excessive flatus, Denies dyspepsia, Denies heartburn, Denies diarrhea, Denies loose stools, Denies nausea, Denies odynophagia and Denies vomiting Musc Reports no additional complaints Neuro Reports no additional complaints Psych Reports no additional complaints Endo Reports no additional complaints Physical Exam Vital Signs: Last Vital Signs Pulse 84 04/15/24 14:12 Pulse Ox 98 04/15/24 14:12 Oxygen Delivery Method Room Air 04/15/24 14:12 BMI result Body Mass Index 37.4 Const General: healthy appearing and no acute distress Nutritional Appearance: obese Orientation/consciousness: patient oriented x3 Resp Effort & Inspection: normal respiratory effort, able to speak in complete sentences, no tracheal deviation and symmetric chest movement Auscultation: clear to auscultation bilaterally Cardio Rate: regular rate GI Inspection: Yes normal to inspection, No distended and Yes obesity Palpation (GI): Soft to palpation, not firm, nontender and No hepatosplenomegaly present Auscultation: normal bowel sounds General: Yes no CVA tenderness Back/Spine/Pelvis Back: no CVA tenderness Skin General skin exam: elasticity normal, turgor normal and dry skin Neuro General: patient oriented x3 Psych Appearance: grossly normal Mental Status: mental status grossly normal Assessment & Plan Assessment & Plan (1) Elevated LFTs: Code(s): R79.89 - Other specified abnormal findings of blood chemistry Category: Medical (2) GERD (gastroesophageal reflux disease): Code(s): K21.9 - Gastro-esophageal reflux disease without esophagitis Category: Medical Qualifiers: Esophagitis presence: esophagitis presence not specified Qualified Code(s): K21.9 - Gastro-esophageal reflux disease without esophagitis (3) Screen for colon cancer: Code(s): Z12.11 - Encounter for screening for malignant neoplasm of colon Plan Patient denies any GI, cardiac or respiratory symptoms.? Elevated liver enzymes, diagnosed with fatty liver. Ultrasound showed increased echogenicity. Denies any issues with anesthesia in the past.? Denies any history of sleep apnea.? No history infectious diseases in the past or present.? Not on any anticoagulation therapy.? No family or personal history of colon cancer or polyps.? Patient denies melena, hematochezia, unintentional weight loss or ribbon like stools.? Discussed at length the pre-procedure,? prep, diet & medications as well as what to expect prior, during and after the procedure.?? Stressed the importance of go od bowel prep.? Recommended the use of Vaseline or Calmoseptine OTC & baby wipes with bowel movements to promote comfort.? ?Patient verbalizes understanding and agrees to plan of care.? She was given the opportunity to ask questions and all questions answered.? We will see her after the procedure.? Medications: New polyethylene glycol 3350 (Miralax) As directed by gastroenterology department at [facility] 238 grams PO ONCE 238 grams 0RF Z12.11 - Encounter for screening for malignant neoplasm of colon bisacodyl (Dulcolax (bisacodyl)) take 4 tabs at noon the day before your colonoscopy 20 mg (4 x 5 mg) PO ONCE 1 day 4 tabs 0RF Z12.11 - Encounter for screening for malignant neoplasm of colon Coding Level of Care Code New Pt Level 3 (43974) Diagnoses Elevated LFTs R79.89 Gastroesophageal reflux disease, unspecified whether esophagitis present K21.9 Esophagitis presence: esophagitis presence not specified Screen for colon cancer Z12.11 Time Spent (min) 40 Comment 30 minutes spent with patient and additional 10 minutes spent reviewing her records
== END 2024-04-15 15:29 | disposition home or self-care (01) ==
PROVIDERS: PCP Internal Medicine; Visit Provider Nurse Practitioner Family
DX: R79.89 Other specified abnormal findings of blood chemistry (principal); K21.9 Gastro-esophageal reflux disease without esophagitis; Z12.11 Encounter for screening for malignant neoplasm of colon
CPT/HCPCS: 99203

== ENCOUNTER → 2024-04-15 14:12 | Outpatient (BNVA) | payer OTHER, SELFPAY | PROVIDERS: PCP Internal Medicine; Visit Provider Nurse Practitioner Family | DX: Z12.11 Encounter for screening for malignant neoplasm of colon (principal); K21.9 Gastro-esophageal reflux disease without esophagitis; R79.89 Other specified abnormal findings of blood chemistry | CPT/HCPCS: 99202 ==

== ENCOUNTER 2024-04-24 09:05 | Outpatient (AMB) | payer OTHER, SELFPAY ==
[2024-04-24 09:15] VITALS: BP 118/86; PULSE 85; TEMP 36.8; O2SAT 97; BMI 37.5
--- NOTE | 2024-04-24 09:15 | AM.OFFWIN_ITS ---
Intake Vital Signs 04/24/24 09:15 Height 5 ft 2 in Weight 205 lb BMI 37.5 BP 118/86 Blood Pressure Location Lt brachial Position Sitting Pulse 85 Pulse Source Pulse Oximeter Temp 98.2 F Temp Source Oral Pulse Oximetry (%) 97 Oxygen Delivery Method Room Air Intake Visit Reasons: EP-Abdominal pain Intake Note: Pt is here today c/o abdominal and lower back pain Patient Tobacco Use Status: Never used Tobacco Allergies No Known Allergies Allergy (Verified 04/24/24 09:19) HPI HPI Comments History of Present Illness Details she presents to office with lower abdomen and back pain x 3 days + aching discomfort and last night cramp ing No menstruation x 1 year No dysuria, hematuria + frequency/urgency sometimes No fever or chills No rashes Pain is not one sided She denies constipation or diarrhea No SOB, CP, cough or cold symptoms Pain level is about 6/10 + tubal ligation and refuses t est She has had this discomfor before and it has gone away on its own Denies vaginal bleeding or discharge PFS Medical History Neck pain Overweight Anemia Nephrolithiasis Urinary frequency Annual physical exam Rheumatoid arthritis GERD (gastroesophageal reflux disease) Hypertension Surgical History Hx of tubal ligation History of arthroscopy of right knee History of section Chronic cholecystitis due to cholelithiasis with choledocholithiasis History of laparoscopic cholecystectomy (05/08/20) History of lumpectomy of right breast deliv NOS-unsp Family History Father No problems noted. Mother HTN (hypertension) Osteoarthritis Brother No problems noted. Sister No problems noted. Sister No problems noted. Son No problems noted. Son No problems noted. Son No problems noted. 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 Sexual orientation: Straight/Heterosexual Gender identity: Female Cognitive needs: No Hearing needs: No Vision needs: Yes Review of Systems Const Denies chills, Denies fatigue and Denies fever(s) Eyes Denies change in vision ENT Denies otalgia, Denies nasal congestion and Denies sore throat Card Denies chest pain and Denies dyspnea Resp Denies cough and Denies dyspnea GI Reports abdominal pain, Denies constipation, Denies diarrhea, Denies nausea and Denies vomiting Reports amenorrhea (none x 1 year), Denies hematuria, Denies dysuria, Denies urinary hesitancy, Reports urinary urgency, Denies vaginal discharge, Denies vaginal dryness and Denies vaginal odor Musc Reports back pain and Denies myalgias Skin/Breast Denies rash Endo Denies fatigue Physical Exam Vital Signs: Last Vital Signs Temp 98.2 F 04/24/24 09:15 Pulse 85 04/24/24 09:15 BP 118/86 04/24/24 09:15 Pulse Ox 97 04/24/24 09:15 Oxygen Delivery Method Room Air 04/24/24 09:15 BMI result Body Mass Index 37.5 General: Non-toxic, NAD. Speaking full sentences. Skin: Warm dry throughout Eye: EOMI HENT: Airway patent. Uvula midline. No pharyngeal erythema or edema. No SHAPING MACHINE TENDER. Bilateral canals clear. TM non-erythematous, non-bulging. No TM perforation or hemotympanum noted. Respiratory: CTA bilaterally. No wheezes, rales or rhonchi Cardiac: RRR. No murmur Abdominal: BS present x 4. No masses or distention. Minimal tenderness to deep palpation near bilateral ovaries. No pain to light palpation. No CVAT MSK: No midline tenderness. + diffuse lumbar paravertebral muscle tenderness to palpation. Full ROM extremities. Neurology: A/O. No aphasia or facial droop. Gait without abnormality Psych: Good mood and affect Results AMB Urinalysis, Automated UA Leukoctes 0 Tim/uL Last Edit by Lawanda Arias CMA on 04/24/24 09:29 UA Nitrite Negative Last Edit by Lawanda Arias CMA on 04/24/24 09:29 UA Urobilinogen 0.2 mg/dL Last Edit by Lawanda Arias CMA on 04/24/24 09:29 UA Protein 0 mg/dL Last Edit by Lawanda Arias CMA on 04/24/24 09:29 UA pH 6.0 Last Edit by Lawanda Arias CMA on 04/24/24 09:29 UA Blood 25 John/uL Last Edit by Lawanda Arias CMA on 04/24/24 09:29 UA Specific [place] 1.030 Last Edit by Lawanda Arias CMA on 04/24/24 09:29 UA Ketone Negative Last Edit by Lawanda Arias CMA on 04/24/24 09:29 UA Bilirubin 0 mg/dL Last Edit by Lawanda Arias CMA on 04/24/24 09:29 UA Glucose 0 mg/dL Last Edit by Lawanda Arias CMA on 04/24/24 09:29 Results Reviewed Results Reviewed: Laboratory Last Values Urine pH (Auto) 6.0 04/24/24 09:27 Specific [place] (Auto) 1.030 04/24/24 09:27 Urine Protein (Auto) 0 mg/dL 04/24/24 09:27 Glucose (UA)(Auto) 0 mg/dL 04/24/24 09:27 Urine Ketones (Auto) Negative 04/24/24 09:27 Urine Blood (Auto) 25 John/uL 04/24/24 09:27 Urine Nitrite (Auto) Negative 04/24/24 09:27 Urine Bilirubin (Auto) 0 mg/dL 04/24/24 09:27 Urine Urobilinogen (Auto) 0.2 mg/dL 04/24/24 09:27 Leukocyte Esterase (Auto) 0 Tim/uL 04/24/24 09:27 Assessment & Plan Assessment & Plan (1) Abdominal pain: Code(s): R10.9 - Unspecified abdominal pain Qualifiers: Abdominal location: generalized Qualified Code(s): R10.84 - Generalized abdominal pain Plan: Patient seen and evaluated. Monitor for worsening symptoms and go to ER if worse U/a: negative pt refused hcg Discussed no acute abdomen on exam Will monitor symptoms and use heating pad an tylenol/motrin Patient gave verbal understanding and had no additional questions or concerns at time of discharge All questions answered Orders: Orders AMB Urinalysis Automated Today Z13.9 - Encounter for screening, unspecified Coding Level of Care Code Est Pt Level 3 (08623) Diagnoses Generalized abdominal pain R10.84 Abdominal location: generalized
== END 2024-04-24 09:52 | disposition home or self-care (01) ==
PROVIDERS: PCP Internal Medicine; Visit Provider Physician Assistant
DX: Z13.9 Encounter for screening, unspecified (principal); R10.84 Generalized abdominal pain

== ENCOUNTER → 2024-04-24 09:05 | Outpatient (BNVA) | payer OTHER, SELFPAY | PROVIDERS: PCP Internal Medicine; Visit Provider Physician Assistant | DX: R10.84 Generalized abdominal pain (principal) | CPT/HCPCS: 81003; 99212 ==

== ENCOUNTER 2024-06-10 10:11 | Outpatient (AMB) | payer OTHER, SELFPAY ==
[2024-06-10 10:37] VITALS: BP 118/76; PULSE 82; O2SAT 96; BMI 37.7
--- NOTE | 2024-06-10 10:37 | A.OFFPC_ITS ---
Vital Signs 06/10/24 10:37 Height 5 ft 2 in Weight 206 lb BMI 37.7 BP 118/76 Blood Pressure Location Lt brachial Position Sitting Pulse 82 Pulse Source Pulse Oximeter Pulse Oximetry (%) 96 Oxygen Delivery Method Room Air Intake Visit Reasons: 3 months Follow up visit Intake Note: Pt is here today for 3 months follow up visit. Allergies No Known Allergies Allergy (Verified 06/10/24 10:43) Medication List - Last Reconciled 06/10/24 by Kelly Hayden MD adalimumab (Humira(CF) Pen) 40 mg subcut Q2W bisacodyl (Dulcolax (bisacodyl)) 20 mg (4 x 5 mg) PO ONCE 1 day cholecalciferol (vitamin D3) 50 mcg PO BEDTIME ferrous sulfate 325 mg PO DAILY ibuprofen 800 mg PO TID PRN lisinopril 10 mg PO DAILY polyethylene glycol 3350 (Miralax) 238 grams PO ONCE Tobacco use date assessed: 06/10/24 Dental Screening Dental Screen Date: 01/12/24 HPI 3 months Follow up visit HPI Details Patient presents for the follow-up on hypertension. She complains of persistent right-sided lower thoracic lumbar region pain worse when twisting her body to the side. She denies pain radiating to lower extremities, weakness or numbness in extremities, pleurisy cough abdominal pain. [facility] Medical History Neck pain Overweight Anemia Nephrolithiasis Urinary frequency Annual physical exam Rheumatoid arthritis GERD (gastroesophageal reflux disease) Hypertension Surgical History Hx of tubal ligation History of arthroscopy of right knee History of section Chronic cholecystitis due to cholelithiasis with choledocholithiasis History of laparoscopic cholecystectomy (05/08/20) History of lumpectomy of right breast deliv NOS-unsp Family History Father No problems noted. Mother HTN (hypertension) Osteoarthritis Brother No problems noted. Sister No problems noted. Sister No problems noted. Son No problems noted. Son No problems noted. Son No problems noted. 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 4. Feeling tired or having little energy: not at all Source: Developed by Drs. Romeo Mendoza, Philip Suarez and colleagues, with an educational philip from [employer]. Thrive Questionnaire Date Thrive assessed: 02/24/24 I am a: Patient What is your living situation today?: I have a steady place to live Within the past 12 months, did the food you bought not last and you didn't have the money to get more?: Never true Within the past 12 months, did you worry whether your food would run out before you got money to buy more?: Never true Do you have trouble paying for medicines?: No Do you have trouble getting transportation to medical appointments?: No Do you have trouble paying your heating and electricity bill?: No Do you have trouble taking care of your child, family member or friend?: No Do you have trouble with day-to-day activities such as bathing, preparing meals, shopping, managing finances, etc.?: No Are you currently unemployed and looking for a job?: No Are you interested in more education?: No Please select the resources that you would like help with: None Currently or been in a relationship where the following occur: No concerns reported THRIVE Score: 0 ISAK-7 AMB Questionnaire ISAK-7 Date ISAK - 7 assessed: 07/25/23 Source: Developed by Drs. Romeo Mendoza, Philip Suarez and colleagues, with an educational philip from [employer]. Review of Systems Const All systems reviewed & are unremarkable except as noted in HPI and below ENT Reports no additional complaints Card Reports no additional complaints Resp Reports no additional complaints GI Reports no additional complaints Reports no additional complaints Physical exam (Primary Care) Vital Signs: Last Vital Signs Pulse 82 06/10/24 10:37 BP 118/76 06/10/24 10:37 Pulse Ox 96 06/10/24 10:37 Oxygen Delivery Method Room Air 06/10/24 10:37 BMI result Body Mass Index 37.7 Tobacco/Smoking Status: Tobacco use Status Tobacco use date assessed 06/10/24 06/10/24 10:44 Patient Tobacco Use Status Never used Tobacco 06/10/24 10:37 e-Cigarette/Vaping Use Never Used 06/10/24 10:37 Thrive Assessment: Date of Thrive Assessment Date Thrive assessed 02/24/24 06/10/24 10:37 Currently or been in a relationship where the following occur: No concerns reported Const General: no acute distress HENMT Throat: Yes posterior oropharynx normal Resp Effort & Inspection: normal respiratory effort Auscultation: clear to auscultation bilaterally Cardio Rhythm: regular rhythm Heart sounds: S1 normal heart sound present and S2 normal heart sound present GI Inspection: Yes normal to inspection Palpation (GI): Soft to palpation Percussion: Yes normal to percussion Auscultation: normal bowel sounds Back/Spine/Pelvis Other: Reproducible tenderness in the right paraspinal lower thoracic and lumbar region, no spinal tenderness, straight leg rising 90 degrees bilaterally Coding Level of Care Code Est Pt Level 4 (69972) Diagnoses Lumbar pain M54.50 Strain of mid-back S29.012A Hypertension I10 Gastroesophageal reflux disease, unspecified whether esophagitis present K21.9 Esophagitis presence: esophagitis presence not specified Elevated LFTs R79.89 Assessment & Plan Assessment & Plan (1) Lumbar pain: Code(s): M54.50 - Low back pain, unspecified Category: Medical Plan: Check x-rays and referred to physical therapy (2) Strain of mid-back: Code(s): S29.012A - Strain of muscle and tendon of back wall of thorax, initial encounter Category: Medical Plan: Referred to physical therapy (3) Hypertension: Code(s): I10 - Essential (primary) hypertension Category: Medical Plan: Continue lisinopril (4) GERD (gastroesophageal reflux disease): Code(s): K21.9 - Gastro-esophageal reflux disease without esophagitis Category: Medical Qualifiers: Esophagitis presence: esophagitis presence not specified Qualified Code(s): K21.9 - Gastro-esophageal reflux disease without esophagitis Plan: Continue GERD diet (5) Elevated LFTs: Comment: Abdominal ultrasound enlarged fatty liver 02/2024 Code(s): R79.89 - Other specified abnormal findings of blood chemistry Category: Medical Plan: Monitor liver function, avoid NSAIDs, acetaminophen alcohol and simple carbohydrates. Weight loss discussed with the patient. Return for physical in January Orders: Orders PT Evaluation and Treatment Today M54.50 - Low back pain, unspecified, S29.012A - Strain of muscle and tendon of back wall of thorax, initial encounter XR lumbar spine 2-3V Today M54.50 - Low back pain, unspecified, S29.012A - Strain of muscle and tendon of back wall of thorax, initial encounter Lipid Panel 7 Months I10 - Essential (primary) hypertension, K21.9 - Gastro- esophageal reflux disease without esophagitis, R79.89 - Other specified abnormal findings of blood chemistry Complete Blood Count Auto Diff 7 Months I10 - Essential (primary) hypertension, K21.9 - Gastro-esophageal reflux disease without esophagitis, R79.89 - Other specified abnormal findings of blood chemistry TSH reflex Free T4 7 Months I10 - Essential (primary) hypertension, K21.9 - Gastro-esophageal reflux disease without esophagitis, R79.89 - Other specified abnormal findings of blood chemistry IRON PROFILE 7 Months I10 - Essential (primary) hypertension, K21.9 - Gastro- esophageal reflux disease without esophagitis, R79.89 - Other specified abnormal findings of blood chemistry XR thoracic spine 2V Today M54.50 - Low back pain, unspecified, S29.012A - Strain of muscle and tendon of back wall of thorax, initial encounter Comprehensive [place]. Panel Fast 7 Months I10 - Essential (primary) hypertension, K21.9 - Gastro-esophageal reflux disease without esophagitis, R79.89 - Other specified abnormal findings of blood chemistry
== END 2024-06-10 11:23 | disposition home or self-care (01) ==
PROVIDERS: PCP Internal Medicine; Visit Provider Internal Medicine
DX: M54.50 Low back pain, unspecified (principal); S29.012A Strain of muscle and tendon of back wall of thorax, initial encounter; I10 Essential (primary) hypertension; K21.9 Gastro-esophageal reflux disease without esophagitis; R79.89 Other specified abnormal findings of blood chemistry

== ENCOUNTER → 2024-06-10 10:11 | Outpatient (BNVA) | payer OTHER, SELFPAY | PROVIDERS: PCP Internal Medicine; Visit Provider Internal Medicine | DX: M54.50 Low back pain, unspecified (principal); I10 Essential (primary) hypertension; K21.9 Gastro-esophageal reflux disease without esophagitis; R79.89 Other specified abnormal findings of blood chemistry; S29.012D Strain of muscle and tendon of back wall of thorax, subsequent encounter | CPT/HCPCS: 99212 ==

== ENCOUNTER 2024-08-14 09:14 | Outpatient (AMB) | payer OTHER, SELFPAY ==
[2024-08-14 09:30] VITALS: BP 138/90; PULSE 79; RESP 15; TEMP 36.6; O2SAT 98; BMI 36.6
--- NOTE | 2024-08-14 09:30 | MHC.OFFWIV ---
Intake Vital Signs 08/14/24 09:30 Height 5 ft 2 in Weight 200 lb BMI 36.6 BP 138/90 H Blood Pressure Location Lt brachial Position Sitting Respiration 15 Pulse 79 Pulse Source Pulse Oximeter Temp 97.8 F Temp Source Oral Pulse Oximetry (%) 98 Oxygen Delivery Method Room Air Intake Visit Reasons: EP ? pink eye Intake Note: Pt is here today c/o ? pink eye: euye crusty and glossy Patient Tobacco Use Status: Never used Tobacco Allergies No Known Allergies Allergy (Verified 08/14/24 09:31) HPI EP ? 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 She reports that symptoms are worse when she wakes in the morning, but she does use warm wet compresses to remove the discharge as needed during the day. She denies apparent trauma, although she does put contacts in, and she does wear makeup around her eyes. She reports that she suspects her makeup is old, or the cause of her problems. She denies eye pain, feeling a foreign body sensation, vision changes, or headache or nausea, or UTI symptoms. [facility] Medical History Neck pain Overweight Anemia Nephrolithiasis Urinary frequency Annual physical exam Rheumatoid arthritis GERD (gastroesophageal reflux disease) Hypertension Surgical History Hx of tubal ligation History of arthroscopy of right knee History of section Chronic cholecystitis due to cholelithiasis with choledocholithiasis History of laparoscopic cholecystectomy (05/08/20) History of lumpectomy of right breast deliv NOS-unsp Family History Father No problems noted. Mother HTN (hypertension) Osteoarthritis Brother No problems noted. Sister No problems noted. Sister No problems noted. Son No problems noted. Son No problems noted. Son No problems noted. 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 Sexual orientation: Straight/Heterosexual Gender identity: Female Cognitive needs: No Hearing needs: No Vision needs: Yes Review of Systems Const All systems reviewed & are unremarkable except as noted in HPI and below Physical Exam Vital Signs: Last Vital Signs Temp 97.8 F 08/14/24 09:30 Pulse 79 08/14/24 09:30 Resp 15 08/14/24 09:30 BP 138/90 H 08/14/24 09:30 Pulse Ox 98 08/14/24 09:30 Oxygen Delivery Method Room Air 08/14/24 09:30 BMI result Body Mass Index 36.6 Eyes Other: Right greater than left mild injection to the sclera, pustulant crusting visible to the right upper eyelash line, and watery discharge bilaterally. No corneal opacity visible, apparent chemosis, or significant injection. 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 I told her that while it is most likely that that she has bacterial conjunctivitis, that she should monitor symptoms closely and should follow up with an senior research analyst for an urgent eye exam if she starts to develop worsening symptoms, pain, feeling a foreign body sensation, vision changes, or headache or nausea, or any other worrisome symptoms. She reports that she does have an senior research analyst and that she understands. Patient advised to remove her contacts NHAN. We also discussed that she should wash off her makeup, and discontinue use of what she is using around her eyes for makeup. To cover for possible Pseudomonas infection, I wrote her for a course of ciprofloxacin eye drops. I told her that she can resume wearing her contact lens when the eye is white and has no discharge for 24 hours after the completion of antibiotic therapy. She will continue to do warm wet compresses as needed for the discharge, and to wash her hands frequently. I gave her a note to be out of work tomorrow. Medications: New ciprofloxacin HCl 0.3% Instill 1 to 2 drops into the conjunctival sac every 2 hours while awake for 2 days and 1 to 2 drops every 4 hours while awake for the next 5 days 10 mL 0RF Coding Level of Care Code Est Pt Level 4 (77210) Diagnoses Bacterial conjunctivitis H10.9
== END 2024-08-14 11:10 | disposition home or self-care (01) ==
PROVIDERS: PCP Internal Medicine; Visit Provider Physician Assistant Medical
DX: H10.9 Unspecified conjunctivitis (principal)

== ENCOUNTER → 2024-08-14 09:14 | Outpatient (BNVA) | payer OTHER, SELFPAY | PROVIDERS: PCP Internal Medicine | DX: H10.9 Unspecified conjunctivitis (principal) | CPT/HCPCS: 99212 ==

== ENCOUNTER 2024-08-24 09:20 | Outpatient (REF) | payer OTHER, SELFPAY | END 2024-08-24 09:21 | disposition home or self-care (01) | LOC: HO.MAMMO 09:20 | PROVIDERS: PCP Internal Medicine; Visit Provider Internal Medicine | DX: Z12.31 Encounter for screening mammogram for malignant neoplasm of breast (principal) | CPT/HCPCS: 77063; 77067 ==

== ENCOUNTER → 2024-08-24 09:30 | Outpatient (BNV) | payer OTHER, SELFPAY | PROVIDERS: PCP Internal Medicine; Visit Provider Internal Medicine | DX: Z12.31 Encounter for screening mammogram for malignant neoplasm of breast (principal) | CPT/HCPCS: 77063; 77067 ==

== ENCOUNTER 2024-10-01 08:01 | Outpatient (AMB) | payer OTHER, SELFPAY ==
--- NOTE | 2024-10-01 08:41 | MHC.OFFWIV ---
Intake Vital Signs 10/01/24 08:42 Weight 208 lb BP 126/80 Blood Pressure Location Rt brachial Position Sitting Pulse 61 Pulse Source Pulse Oximeter Pulse Oximetry (%) 100 Oxygen Delivery Method Room Air Intake Visit Reasons: EP lower abdominal pain Intake Note: Patient here for lower abdominal pain and lower back pain that has been present for about 1 week. Patient Tobacco Use Status: Never used Tobacco Allergies No Known Allergies Allergy (Verified 10/01/24 08:41) Do you need a note to return to daycare/school/sports/work: Yes HPI EP lower abdominal pain HPI Details This is a 48-year-old female patient who presents to the walk-in clinic today with a one-week history of urinary pressure, and mild lower back pain. She states that this happens about once every 6 months. The last time this occurred, she received antibiotics for suspected UTI, and improved very quickly. She denies any vaginal symptoms. Denies any painful urination or odor to urine. She states she has some known kidney stones that are being monitored by urology. She has an appointment in December for follow-up. She reports pain is an aching pressure. Denies any fevers. Normal bowel movements. [facility] Medical History Neck pain Overweight Anemia Nephrolithiasis Urinary frequency Annual physical exam Rheumatoid arthritis GERD (gastroesophageal reflux disease) Hypertension Surgical History Hx of tubal ligation History of arthroscopy of right knee History of section Chronic cholecystitis due to cholelithiasis with choledocholithiasis History of laparoscopic cholecystectomy (05/08/20) History of lumpectomy of right breast deliv NOS-unsp Family History Father No problems noted. Mother HTN (hypertension) Osteoarthritis Brother No problems noted. Sister No problems noted. Sister No problems noted. Son No problems noted. Son No problems noted. Son No problems noted. 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 Sexual orientation: Straight/Heterosexual Gender identity: Female Cognitive needs: No Hearing needs: No Vision needs: Yes Review of Systems Const All systems reviewed & are unremarkable except as noted in HPI and below Physical Exam Vital Signs: Last Vital Signs Pulse 61 10/01/24 08:42 BP 126/80 10/01/24 08:42 Pulse Ox 100 10/01/24 08:42 Oxygen Delivery Method Room Air 10/01/24 08:42 Const General: cooperative, healthy appearing, comfortable and no acute distress Limitations: no limitations HEENT Ears: hearing grossly normal bilaterally Neck Neck: Yes no lymphadenopathy Resp Effort & Inspection: normal respiratory effort Auscultation: clear to auscultation bilaterally Cardio Rate: regular rate Rhythm: regular rhythm GI Inspection: Yes normal to inspection Palpation (GI): Soft to palpation (nontender) Auscultation: normal bowel sounds Other: slight pressure with bladder palp General: Yes CVA tenderness (very mild b/l) Back/Spine/Pelvis Back: CVA tenderness (very mild b/l) Skin General skin exam: no rashes or lesions noted Extrem General: Yes no clubbing, cyanosis or edema Psych Appearance: grossly normal Mental Status: mental status grossly normal Speech and movement: Normal speech and movement present Assessment & Plan Assessment & Plan (1) Urinary tract infection: Code(s): N39.0 - Urinary tract infection, site not specified Qualifiers: Urinary tract infection type: acute cystitis Hematuria presence: with hematuria Qualified Code(s): N30.01 - Acute cystitis with hematuria Plan: Urine dip shows only blood/mili. Patient has had similar symptoms previously, and did well with antibiotic course. We will start her on nitrofurantoin and also phenazopyridine to see if this is beneficial for her. We reviewed indications, use, possible side effects of medications. Encouraged increased hydration. If she develops any worsening symptoms or does not improve with treatment, she can return to the clinic or the emergency department for evaluation. He verbalizes understanding and agrees to plan. Medications: New phenazopyridine 200 mg PO TID PRN 6 tabs 0RF pain Refilled nitrofurantoin monohyd/m-cryst 100 mg (Macrobid) must administer with a meal/food 100 mg PO Q12H 5 days 10 caps 0RF N30.01 - Acute cystitis with hematuria Coding Level of Care Code Est Pt Level 4 (85479) Diagnoses Acute cystitis with hematuria N30.01 Urinary tract infection type: acute cystitis Hematuria presence: with hematuria
[2024-10-01 08:42] VITALS: BP 126/80; PULSE 61; O2SAT 100
== END 2024-10-01 09:16 | disposition home or self-care (01) ==
PROVIDERS: PCP Internal Medicine; Visit Provider Nurse Practitioner Family
DX: Z13.9 Encounter for screening, unspecified (principal); N30.01 Acute cystitis with hematuria

== ENCOUNTER → 2024-10-01 08:01 | Outpatient (BNVA) | payer OTHER, SELFPAY | PROVIDERS: PCP Internal Medicine | DX: N30.01 Acute cystitis with hematuria (principal) | CPT/HCPCS: 81003; 99212 ==

== ENCOUNTER 2025-01-10 12:27 | Outpatient (AMB) | payer OTHER, SELFPAY ==
[2025-01-10 12:35] VITALS: BP 144/90; PULSE 88; TEMP 36.8; O2SAT 96
--- NOTE | 2025-01-10 12:35 | AM.OFFWIN_ITS ---
Intake Vital Signs 01/10/25 12:35 Height 52 ft Weight 200 lb BMI 0.4 BP 144/90 H Blood Pressure Location Lt brachial Position Sitting Pulse 88 Pulse Source Pulse Oximeter Temp 98.2 F Temp Source Oral Pulse Oximetry (%) 96 Oxygen Delivery Method Room Air Intake Visit Reasons: EP Lower abdominal pain Intake Note: presents with low abdominal pain for 2 days, bladder feels full, frequent urination Patient Tobacco Use Status: Never used Tobacco Allergies No Known Allergies Allergy (Verified 01/10/25 12:35) Do you need a note to return to daycare/school/sports/work: Yes Return to daycare/school/sports/work/other note: work HPI HPI Comments History of Present Illness Details 49 y/o Female patient who presents to [facility] walk in clinic with c/o Lower abdominal pain associated with Urinary frequency and dysuria for few days. Pt was seen and evaluated at another this past Friday and was prescribed Macrobid. Denies Vaginal symptoms. Sexually active with 1 male partner - B/L Tubal Ligation. No concerns for STIs. [facility] Medical History (Updated 01/10/25 @ 13:14 by Madonna Ramirez NP) Vaginitis Neck pain Overweight Anemia Nephrolithiasis Urinary frequency Annual physical exam Rheumatoid arthritis GERD (gastroesophageal reflux disease) Hypertension Surgical History Hx of tubal ligation History of arthroscopy of right knee History of section Chronic cholecystitis due to cholelithiasis with choledocholithiasis History of laparoscopic cholecystectomy (05/08/20) History of lumpectomy of right breast deliv NOS-unsp Family History Father No problems noted. Mother HTN (hypertension) Osteoarthritis Brother No problems noted. Sister No problems noted. Sister No problems noted. Son No problems noted. Son No problems noted. Son No problems noted. 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 Sexual orientation: Straight/Heterosexual Gender identity: Female Cognitive needs: No Hearing needs: No Vision needs: Yes Review of Systems Const All systems reviewed & are unremarkable except as noted in HPI and below Physical Exam Vital Signs: Last Vital Signs Temp 98.2 F 01/10/25 12:35 Pulse 88 01/10/25 12:35 BP 144/90 H 01/10/25 12:35 Pulse Ox 96 01/10/25 12:35 Oxygen Delivery Method Room Air 01/10/25 12:35 BMI result Body Mass Index 0.4 Const General: no acute distress Nutritional Appearance: obese morbidly obese Orientation/consciousness: patient oriented x3 Other: Declined Pelvic Exam General: Yes no CVA tenderness Back/Spine/Pelvis Back: no CVA tenderness Neuro General: patient oriented x3, gait normal and moves all extremities Psych Speech and movement: Normal speech and movement present Assessment & Plan Assessment & Plan (1) Vaginitis: Code(s): N76.0 - Acute vaginitis Qualifiers: Chronicity: acute Qualified Code(s): N76.0 - Acute vaginitis Plan: Urinalysis negative Ordered Bacterial Vaginal Panel Advised to f/u with 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 Orders: Orders Bacterial Vaginosis Panel Today N76.0 - Acute vaginitis Coding Level of Care Code Est Pt Level 4 (74955) Diagnoses Acute vaginitis N76.0 Chronicity: acute Time Spent (min) 20
== END 2025-01-10 13:41 | disposition home or self-care (01) ==
PROVIDERS: PCP Internal Medicine; Visit Provider Nurse Practitioner Family
DX: Z13.9 Encounter for screening, unspecified (principal); N76.0 Acute vaginitis

== ENCOUNTER 2025-01-10 12:27 | Outpatient (REF) | payer OTHER, SELFPAY ==
[2025-01-11 11:27] LABS: Bacterial Vaginosis PCR NEGATIVE (Negative); Candida Group PCR NOT DETECTED (Not Detect); Candida glab krusei PCR NOT DETECTED (Not Detect); Trichomonas vaginalis PCR NOT DETECTED (Not Detect)
== END 2025-01-10 12:28 | disposition home or self-care (01) ==
LOC: HO.LAB 12:27
PROVIDERS: Nurse Practitioner Family; PCP Internal Medicine
DX: N76.0 Acute vaginitis (principal); Z13.9 Encounter for screening, unspecified; R10.30 Lower abdominal pain, unspecified; R35.0 Frequency of micturition; Z98.51 Tubal ligation status
CPT/HCPCS: 81003; 81515; 99212

== ENCOUNTER 2025-01-11 11:44 | Outpatient (REF) | payer SELFPAY ==
[2025-01-11 16:22] LABS: CT PCR NOT DETECTED (Not Detect.); NG PCR NOT DETECTED (Not Detect.)
== END 2025-01-11 11:45 | disposition home or self-care (01) ==
LOC: HO.LNP 11:44
PROVIDERS: PCP Internal Medicine; Visit Provider Obstetrics & Gynecology
DX: R10.2 Pelvic and perineal pain (principal); R31.29 Other microscopic hematuria; Z32.02 Encounter for pregnancy test, result negative
CPT/HCPCS: 81002; 81025; 87086; 87491; 87591; 99212

== ENCOUNTER 2025-01-11 11:44 | Outpatient (AMB) | payer OTHER, SELFPAY ==
--- NOTE | 2025-01-11 12:00 | A.OFFVIS_ITS ---
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 for 5 days, the patient's symptoms persist no associated GI or symptoms no vaginal discharge, no nausea or vomiting or fever or chills PFS Medical History Vaginitis Neck pain Overweight Anemia Nephrolithiasis Urinary frequency Annual physical exam Rheumatoid arthritis GERD (gastroesophageal reflux disease) Hypertension Surgical History Hx of tubal ligation History of arthroscopy of right knee History of section Chronic cholecystitis due to cholelithiasis with choledocholithiasis History of laparoscopic cholecystectomy (05/08/20) History of lumpectomy of right breast deliv NOS-unsp Family History Father No problems noted. Mother HTN (hypertension) Osteoarthritis Brother No problems noted. Sister No problems noted. Sister No problems noted. Son No problems noted. Son No problems noted. Son No problems noted. 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 Sexual orientation: Straight/Heterosexual Gender identity: Female Cognitive needs: No Hearing needs: No Vision needs: Yes Review of Systems Const All systems reviewed & are unremarkable except as noted in HPI and below Physical Exam Vital Signs: BMI result Body Mass Index 36.6 General: Yes no CVA tenderness External Female Exam: normal external appearance and normal appearance of the urethra Speculum Exam - Vagina: normal appearance of the vagina, normal palpation, no lesions and no masses Speculum Exam - Cervix: normal appearance of the cervix, normal palpation, no lesions, no masses and nontender Bimanual exam- vagina & uterus: normal bimanual exam, normal palpation, uterine size normal, normal palpation, uterine shape normal, No Cervical tenderness present and non-tender Bimanual Exam- Adnexa, other: normal adnexae Back/Spine/Pelvis Back: no CVA tenderness Results AMB Urinalysis Dipstick UR Leukocytes Negative Last Edit by Reema Leo, TURN OUT on 01/11/25 12:15 UR Nitrite Negative Last Edit by Reema Leo, TURN OUT on 01/11/25 12:15 UR Urobilinogen Normal Last Edit by Reema Leo, TURN OUT on 01/11/25 12:15 UR Protein Trace Last Edit by Reema Leo, TURN OUT on 01/11/25 12:15 UR Ph 6.0 Last Edit by Reema Leo, TURN OUT on 01/11/25 12:15 UR Blood Trace Last Edit by Reema Leo, TURN OUT on 01/11/25 12:15 UR Specific [place] 1.025 Last Edit by Reema Leo, TURN OUT on 01/11/25 12:15 UR Ketone Negative Last Edit by Reema Leo, TURN OUT on 01/11/25 12:15 UR Bilirubin Negative Last Edit by Reema Leo, TURN OUT on 01/11/25 12:15 UR Glucose Negative Last Edit by Reema Leo, TURN OUT on 01/11/25 12:15 Results Reviewed Results Reviewed: Laboratory Last Values Urine pH (Clinic) 6.0 01/11/25 12:11 Specific [place] (Clinic) 1.025 01/11/25 12:11 Ur Protein (Clinic) Trace 01/11/25 12:11 Ur Ketones (Clinic) Negative 01/11/25 12:11 Urine Blood (Clinic) Trace 01/11/25 12:11 Urine Nitrite Negative 01/11/25 12:11 Urine Bilirubin (Clinic) Negative 01/11/25 12:11 Urobilinogen (Clinic) Normal 01/11/25 12:11 Leukocyte Esterase (Clinic) Negative 01/11/25 12:11 Urine Glucose (Clinic) Negative 01/11/25 12:11 Assessment & Plan Assessment & Plan (1) Pelvic pain: Code(s): R10.2 - Pelvic and perineal pain Category: Medical Plan: Urine test done in the office was negative. GC and chlamydia taken and pelvic ultrasound ordered. Discussed with the patient the differential diagnosis of pelvic pain including but not limited to adnexal, uterine masses, pelvic infections (PID), GI the (Irritable bowel syndrome, diverticulitis, others), musculoskeletal, myofascial pain abdominal wall , adhesions, endometriosis, psychological and others causes. Will check results and treat accordingly. All questions answered, the patient verbalized understanding. Instructed the patient to schedule an ultrasound and a follow-up appointment in 2 weeks. All questions answered, the patient verbalized understanding and agreed with the plan. (2) Microscopic hematuria: Code(s): R31.29 - Other microscopic hematuria Category: Medical Plan: Urine dip showed microscopic hematuria, urine culture sent. Will repeat urine dip in 2 weeks. Discussed with the patient the possible causes of microscopic hematuria including but not limited to: interstitial cystitis, polyps, stones, masses, urethral inflammatory processes and others. If Urine Culture is negative and repeat urine dip in 2 weeks shows persistent microscopic hematuria, will proceed with CT abdomen/pelvis and urology referral. Instructions given the patient to schedule a 2 week urine dip follow-up appointment. All questions answered and the patient verbalized understanding. Orders: Orders AMB Urinalysis Dipstick Today R10.2 - Pelvic and perineal pain, R31.29 - Other microscopic hematuria Urine Culture Today R10.2 - Pelvic and perineal pain, R31.29 - Other microscopic hematuria US pelvic and transvaginal Today R10.2 - Pelvic and perineal pain Coding Level of Care Code Est Pt Level 3 (53026) Diagnoses Pelvic pain R10.2 Microscopic hematuria R31.29
[2025-01-11 12:09] VITALS: BMI 36.6
== END 2025-01-11 13:03 | disposition home or self-care (01) ==
LOC: HO.HWS 11:45
PROVIDERS: PCP Internal Medicine; Visit Provider Obstetrics & Gynecology
DX: R10.2 Pelvic and perineal pain (principal); R31.29 Other microscopic hematuria; Z32.02 Encounter for pregnancy test, result negative
CPT/HCPCS: 99213

== ENCOUNTER 2025-01-15 09:05 | Emergency (ER) | payer OTHER, SELFPAY ==
--- NOTE | ~2025-01-15 | CT_ITS ---
CLINICAL HISTORY: BL lower abdominal pain, back pain CT abdomen and pelvis with contrast Comparison: CT/SR - CT ABDOMEN PELVIS W IV CON - 12/04/23 21:42 EDT Findings: The lung bases are clear. The liver is enlarged. The spleen, pancreas, kidneys and adrenal glands are normal in appearance. Gallbladder is surgically absent. No bowel obstruction, pneumoperitoneum, or pneumatosis. Small fat containing umbilical hernia. Uterus and adnexa are unremarkable. Normal appendix in the right lower quadrant. No ascites. Trace physiologic free fluid in the pelvis. Urinary bladder is normal. No lytic or blastic bone lesions. Mild degenerative changes of the lumbar spine. IMPRESSION: No acute findings. Hepatomegaly. This document has been electronically signed by: Alireza Villalobos MD on 01/15/2025 12:02:44
[2025-01-15 09:07] VITALS: BP 178/92; PULSE 81; RESP 20; TEMP 37; O2SAT 97; BMI 33.0
--- NOTE | 2025-01-15 09:14 | ED.ABDPAIN ---
HPI - Abdominal Pain General Chief Complaint: Abdominal Pain Stated Complaint: lower abd pain Time Seen by Provider: 01/15/25 09:14 Source: patient and RN notes reviewed Mode of arrival: ambulatory Limitations: no limitations History of Present Illness ED Provider: Harriett Crow PA-C HPI narrative: This is a 49-year-old female, with a past medical history of hypertension, GERD, nephrolithiasis, and vaginitis, who presents emergency department with concerns of lower abdominal pain for the last week. She is also endorsing increased urination, urinary urgency, and suprapubic fullness. She went to an urgent care last Friday and had a clean-catch urine, given oral antibiotics for 5 days which she completed 3 days ago. She states that she was then seen by her OBGYN where they performed a pelvic examination, no acute findings. She is sexually active with 1 partner, denies any concerns for sexually transmitted infections. She also states that she tested negative for these at her OBGYN several days ago. Her OBGYN ordered an outpatient ultrasound however patient is unable to be seen until February. She states that she can use to be uncomfortable. She also reports back pain over this last week. No trauma or injury. Denies any fevers, chills, chest pain, shortness of breath, nausea, vomiting or diarrhea. No dysuria, hematuria. She does express some constipation which she attributes to the iron supplementation that she is taking, however states that over the last couple of days she has had regular bowel movements. No other complaints or concerns at this time. MD elicited complaint: abdominal pain Pertinent past history: constipation and kidney stones Pain Consistency: constant Location: none Quality: cramping, aching and fullness Radiation: none Migration to: no migration Exacerbating factors: nothing Relieving factors: nothing Associated symptoms: denies other symptoms Related Data Home Medications ?Medication ?Instructions ?Recorded ?Confirmed adalimumab 40 mg/0.4 mL 40 mg subcut Q2W 07/25/23 06/10/24 subcutaneous pen kit (Humira(CF) Pen) nitrofurantoin macrocrystal 100 mg 100 mg PO BID 01/10/25 capsule Previous Rx's ?Medication ?Instructions ?Recorded cholecalciferol (vitamin D3) 50 50 mcg PO BEDTIME #90 caps 01/12/24 mcg (2,000 unit) capsule lisinopril 10 mg tablet 10 mg PO DAILY #90 tabs 10/29/24 ferrous sulfate 325 mg (65 mg 325 mg PO DAILY #90 tabs 11/29/24 iron) tablet Allergies Allergy/AdvReac Type Severity Reaction Status Date / Time No Known Allergies Allergy Verified 01/15/25 09:08 Review of Systems Review of Systems Yes all other systems are reviewed and are negative Constitutional: Reports as per HPI [facility] Past Medical History Medical History Vaginitis Neck pain Overweight Anemia Nephrolithiasis Urinary frequency Annual physical exam Rheumatoid arthritis GERD (gastroesophageal reflux disease) Hypertension Surgical History Hx of tubal ligation History of arthroscopy of right knee History of section Chronic cholecystitis due to cholelithiasis with choledocholithiasis History of laparoscopic cholecystectomy (05/08/20) History of lumpectomy of right breast deliv NOS-unsp Family History Family History Father No problems noted. Mother HTN (hypertension) Osteoarthritis Brother No problems noted. Sister No problems noted. Sister No problems noted. Son No problems noted. Son No problems noted. Son No problems noted. 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 Sexual orientation: Straight/Heterosexual Gender identity: Female Cognitive needs: No Hearing needs: No Vision needs: Yes Physical Exam ED Vital Signs: Vital Signs - 24 hr 01/15/25 09:07 01/15/25 10:29 01/15/25 12:25 Temperature 98.6 F 97.4 F 97.2 F Pulse Rate 81 72 69 Respiratory Rate 20 16 16 Blood Pressure 178/92 H 141/66 H 123/49 L Pulse Oximetry 97 100 99 Oxygen Delivery Method Room Air Room Air Room Air BMI result Body Mass Index 33.0 Const General: cooperative, comfortable and no acute distress Orientation/consciousness: patient oriented x3 Limitations: no limitations HENMT Head: Yes normal to inspection, Yes normocephalic and Yes atraumatic Ears: hearing grossly normal bilaterally General nose exam: Normal external nose present Face and sinus: Yes normal facial exam Mouth: Normal oral and palatal mucosa present, oropharynx normal and moist mucous membranes Throat: Yes posterior oropharynx normal Eyes General: appearance normal, both eyes and all related structures Eyelids: Yes eyelids normal Conjunctivae: conjunctivae normal Sclerae: sclerae normal Pupils: Equal, round and reactive pupils present EOM: EOMs intact bilaterally Neck Neck: Yes normal visual inspection, Yes full ROM and Yes no lymphadenopathy Lymphatic: no lymphadenopathy noted Chest Chest palpation & inspection: normal inspection of the chest Resp Effort & Inspection: normal respiratory effort and able to speak in complete sentences Auscultation: clear to auscultation bilaterally, no crackles, no rales, no rhonchi and no wheezes Cardio Rate: regular rate Rhythm: regular rhythm Heart sounds: S1 normal heart sound present and S2 normal heart sound present GI Other: Abdomen is soft, with tenderness palpation in the left lower and right lower quadrant as well as the suprapubic region. No rebound or guarding. Inspection: Yes normal to inspection Skin General skin exam: no rashes or lesions noted Trauma: no lacerations or abrasions Wounds: no wounds Neuro General: patient oriented x3 and moves all extremities Cranial nerves: Yes Equal, round and reactive pupils present Extrem General: Yes normal to inspection Right upper extremity: normal to inspection Left upper extremity: normal to inspection Right lower extremity: normal to inspection Left lower extremity: normal to inspection Medical Decision Making Medical Decision Making MDM Narrative: This is a 49-year-old female, with a past medical history of hypertension, GERD, and rheumatoid arthritis, who presents emergency department for evaluation of abdominal pain x 1 week. On arrival, blood pressure elevated at 178/92, all other vital signs within normal limits. She is well-appearing, speaking full sentences under no acute distress. Abdomen is soft with mild tenderness palpation in the lower quadrants as well as suprapubic region. She does have slight right-sided CVA tenderness. Differential diagnoses include obstructive uropathy, interstitial cystitis, gastritis, gastroenteritis, diverticulitis, diverticulosis. Will obtain labs, CT abdomen and pelvis to rule out any acute pathology. Reviewed visit from Madonna Ramirez on 01/10 walk in clinic revealing that patient was seen for same symptoms as well as visit from Dr. White. In the office, patient had a normal pelvic examination, she did have microscopic hematuria. Swabs were collected, negative for BV, Trichomonas, Jeanne, gonorrhea and chlamydia. Plan: Labs, UA, CT abdomen and pelvis, tylenol. Course: No leukocytosis, stable H&H, chemistry revealing no acute findings. CT revealing hepatomegaly, no other acute findings. Urine appears to be contaminated. Will await urine culture to return as she just was on antibiotics, unclear if this is a true UTI. She will follow-up with Dr. Sudhir travis and PCP. Given strict return precautions. She is well-appearing, no other complaints or concerns at the time. Patient stable for discharge. Differential Diagnosis Differential Diagnoses: The differential diagnosis associated with the presentation includes See above Lab Data [facility] Lab Attestation statement: I reviewed the patient's lab results. See [facility] 01/15/25 09:28 01/15/25 09:28 Labs: Lab Results 01/15/25 01/15/25 Range/Units 09:22 09:28 WBC 7.1 (4.8-10.8) X10*3/uL RBC 4.24 (4.20-5.50) X10*6/uL Hgb 13.2 (12.0-16.0) g/dl Hct 38.3 (37.0-47.0) % MCV 90.3 (80.0-98.0) fL MCH 31.1 (27.0-33.0) pg MCHC 34.5 (31.0-35.0) g/dl RDW 11.6 (11.0-16.0) % Plt Count 324 (160-400) X10*3/uL MPV 10.2 (9.4-12.3) fL Immature Gran % (Auto) 0.3 (0.0-0.4) % Neut % (Auto) 41.8 L (45-73) % Lymph % (Auto) 47.1 H (20-40) % [place] % (Auto) 8.1 (2-11) % Eos % (Auto) 2.0 (0-4) % Baso % (Auto) 0.7 (0-2) % Lymph # (Auto) 3.3 (1.2-4.9) X10*3/uL [place] # (Auto) 0.6 (0.1-1.2) X10*3/uL Eos # (Auto) 0.1 (0.0-0.4) X10*3/uL Baso # (Auto) 0.1 (0.0-0.2) X10*3/uL Abs Immat Gran (auto) 0.02 (0.00-0.03) X10*3/uL Absolute Neuts (auto) 3.0 (2.0-8.3) x10*3/uL Absolute Nucleated RBC 0.000 (0.0-0.012) X10*3/uL Nucleated RBC % (auto) 0.0 (0.0-0.2) /100WBC Sodium 139 (135-145) mmol/L Potassium 3.6 (3.3-5.1) mmol/L Chloride 104 (96-108) mmol/L Carbon Dioxide 28 (22-29) mmol/L Anion Gap 11 L (12-20) BUN 15 (9-16) mg/dL Creatinine 0.64 (0.5-1.4) mg/dL Estim Creat Clear Calc 117.8 Estimated GFR > 60 Random Glucose 101 (60-115) mg/dL Calcium 9.5 D (8.4-10.2) mg/dL Total Bilirubin 0.9 (0.0-1.0) mg/dL Direct Bilirubin 0.3 (0.0-0.5) mg/dL AST 31 (5-31) U/L ALT 39 H (0-31) U/L Alkaline Phosphatase 75 (39-117) U/L Total Protein 9.0 H (6.5-8.0) g/dL Albumin 4.6 (3.5-5.0) g/dL Lipase 33 (8-78) U/L Beta HCG, Quant < 2 mIU/mL Urine Color Yellow Urine Appearance Clear Urine pH 6.5 (5.0-9.0) Ur Specific [place] 1.020 (1.005-1.025) Urine Protein Trace (Neg-Trace) mg/dL Urine Glucose (UA) Negative (Negative) mg/dL Urine Ketones Negative (Negative) mg/dL Urine Blood Trace H (Negative) Urine Nitrite Negative (Negative) Ur Leukocyte Esterase Small (1+) H (Negative) Urine RBC 0-2 (0-2) /HPF Urine WBC 0-5 (0-5) /HPF Ur Squamous Epith Cells 6-10 (0-2) /HPF Urine Bacteria Trace (None Seen) Hyaline Casts 0-2 (0-2) /LPF Radiology Impression Discussion of test interpretation with radiology: I have reviewed the radiologist's reading. Radiologist Impression: Findings: The lung bases are clear. The liver is enlarged. The spleen, pancreas, kidneys and adrenal glands are normal in appearance. Gallbladder is surgically absent. No bowel obstruction, pneumoperitoneum, or pneumatosis. Small fat containing umbilical hernia. Uterus and adnexa are unremarkable. Normal appendix in the right lower quadrant. No ascites. Trace physiologic free fluid in the pelvis. Urinary bladder is normal. No lytic or blastic bone lesions. Mild degenerative changes of the lumbar spine. IMPRESSION: No acute findings. Hepatomegaly. This document has been electronically signed by: Alireza Villalobos MD on 01/15/2025 12:02:44 Dictated By: Alireza Villalobos MD Medications Administered Discontinued Medications Generic Name Dose Route Start Last Admin Trade Name Freq PRN Reason Stop Dose Admin Acetaminophen 1,000 mg in 100 mls @ 400 mls/hr 01/15/25 09:33 01/15/25 11:16 Ofirmev IV 01/15/25 09:47 Infused ONCE ONE Infusion Iohexol 85 ml 01/15/25 10:15 01/15/25 10:18 Iohexol 350 Mg/Ml 100 Ml Infus..Btl IV 01/15/25 10:16 85 ml ONCE ONE Administration Discharge Plan Discharge Clinical Impression: Abdominal pain Patient Disposition: Home, Self-Care Instructions: Abdominal Pain (ED) Additional Instructions: You were seen in the emergency department for abdominal pain. Your blood work today was reassuring. Your CT scan shows evidence of hepatomegaly, does not show any of the reasons for your abdominal pain. It is unclear what is causing you to have this however it is very important that you continue to follow-up with OBGYN. Urine today does show trace blood, and small leuk esterases, it is unclear whether not this is just a contaminated urine sample therefore we are going to await the urine culture to return. Call you if we need to put you on antibiotics. If any new or worsening symptoms occur including but not limited to severe abdominal pain, chest pain, shortness of breath, nausea, vomiting or diarrhea. Prescriptions: No Action lisinopril 10 mg tablet 10 mg PO DAILY Qty: 90 3RF ferrous sulfate 325 mg (65 mg iron) tablet 325 mg PO DAILY Qty: 90 3RF cholecalciferol (vitamin D3) 50 mcg (2,000 unit) capsule 50 mcg PO BEDTIME Qty: 90 3RF Humira(CF) Pen 40 mg/0.4 mL pen injector kit 40 mg subcut Q2W nitrofurantoin macrocrystal 100 mg capsule 100 mg PO BID Rx Instructions: must administer with a meal/food Print Language: [place]
[2025-01-15 09:33] LABS: MANUAL DIFF FLAG NO
[2025-01-15 09:38] LABS: Hematocrit 38.3 % (37.0-47.0); Hemoglobin 13.2 g/dl (12.0-16.0); Imm Gran Abs Auto 0.02 X10*3/uL (0.00-0.03); Imm Gran Pct Auto 0.3 % (0.0-0.4); Lymphocytes Absolute Auto 3.3 X10*3/uL (1.2-4.9); Mean Corpuscular HGB Conc 34.5 g/dl (31.0-35.0); Mean Corpuscular Hemoglobin 31.1 pg (27.0-33.0); Mean Corpuscular Volume 90.3 fL (80.0-98.0); NRBC Abs Auto 0.000 X10*3/uL (0.0-0.012); NRBC Pct Auto 0.0 /100WBC (0.0-0.2); Platelet Count 324 X10*3/uL (160-400); Red Blood Count 4.24 X10*6/uL (4.20-5.50); White Blood Count 7.1 X10*3/uL (4.8-10.8)
[2025-01-15 09:40] LABS: Appearance Urine Clear; Glucose Urine UA Negative (Negative); PH 6.5 (5.0-9.0); Specific Gravity - Urine 1.020 (1.005-1.025); UMIC TRIGGER UACC YES
[2025-01-15 09:52] LABS: UACC Culture Trigger YES
[2025-01-15 10:06] LABS: Albumin Level 4.6 g/dL (3.5-5.0); Alkaline Phosphatase 75 U/L (39-117); Anion Gap 11 (12-20); Aspartate Amino Transferase 31 U/L (5-31); Blood Urea Nitrogen 15 mg/dL (9-16); Calcium 9.5 mg/dL (8.4-10.2); Carbon Dioxide 28 mmol/L (22-29); Chloride 104 mmol/L (96-108); Creatinine Clr Calc Pharmacy 117.8; Estimated Glomerular Filt Rate > 60; Lipase 33 U/L (8-78); Potassium 3.6 mmol/L (3.3-5.1); Sodium 139 mmol/L (135-145); Total Protein 9.0 g/dL (6.5-8.0)
[2025-01-15] MEDS: iohexoL 350 MG/ML 100 ML INFUS..BTL 85 ML IV (10:18)
[2025-01-15 10:29] VITALS: BP 141/66; PULSE 72; RESP 16; TEMP 36.3; O2SAT 100
--- NOTE | 2025-01-15 10:40 | PC.NURSE ---
patient a&ox3, iv inserted, labs drawn, pt medicated for 7/10 abd pain, call nicole within reach, plan of care ongoing
[2025-01-15 10:50] LABS: Alanine Aminotransferase 39 U/L (0-31)
[2025-01-15 12:25] VITALS: BP 123/49; PULSE 69; RESP 16; TEMP 36.2; O2SAT 99
[2025-01-15 12:54] VITALS: BP 123/49; PULSE 69; RESP 16; TEMP 36.2; O2SAT 99
== END 2025-01-15 12:55 | disposition home or self-care (01) ==
PROVIDERS: Physician Assistant Medical; Emergency Provider Emergency Medicine; PCP Internal Medicine
DX: R10.30 Lower abdominal pain, unspecified (principal); R35.0 Frequency of micturition; I10 Essential (primary) hypertension; K21.9 Gastro-esophageal reflux disease without esophagitis; R39.15 Urgency of urination; M06.9 Rheumatoid arthritis, unspecified; Z79.899 Other long term (current) drug therapy
CPT/HCPCS: 36415; 74177; 80048; 80076; 81001; 83690; 84702; 85025; 87086; 96365; 99284; 99285; J0131; Q9967

== ENCOUNTER → 2025-01-15 09:30 | Outpatient (BNV) | payer OTHER, SELFPAY | PROVIDERS: Emergency Provider Emergency Medicine; PCP Internal Medicine; Visit Provider Radiology Diagnostic Radiology | DX: R16.0 Hepatomegaly, not elsewhere classified (principal) | CPT/HCPCS: 74177 ==

== ENCOUNTER 2025-02-02 11:51 | Outpatient (AMB) | payer OTHER, SELFPAY ==
[2025-02-02 12:26] VITALS: BP 120/78; PULSE 73; RESP 18; TEMP 36.8; O2SAT 98; BMI 31.6
--- NOTE | 2025-02-02 12:26 | MHC.PC.OV ---
Vital Signs 02/02/25 12:26 Height 5 ft 5 in Weight 190 lb BMI 31.6 BP 120/78 Blood Pressure Location Rt brachial Position Sitting Respiration 18 Pulse 73 Pulse Source Pulse Oximeter Temp 98.2 F Temp Source Oral Pulse Oximetry (%) 98 Oxygen Delivery Method Room Air Intake Visit Reasons: Annual PE PHQ-9 needed. Intake Note: Pt is here today for PE. Allergies No Known Allergies Allergy (Verified 02/02/25 12:27) Medication List - Last Reconciled 02/02/25 by Kelly Hayden MD adalimumab (Humira(CF) Pen) 40 mg subcut Q2W cholecalciferol (vitamin D3) 50 mcg PO BEDTIME ferrous sulfate 325 mg PO DAILY lisinopril 10 mg PO DAILY Tobacco use date assessed: 02/02/25 Dental Screening Dental Screen Date: 01/12/24 HPI Annual PE PHQ-9 needed. HPI Details Patient presents for physical. She complains of a few weeks of episodes of urinary urgency and lower pelvic discomfort. Patient was evaluated in urgent care and ER with negative workup including UA, urine culture CT of the abdomen and pelvis. Patient denies constipation urinary incontinence hematuria nausea vomiting fever chills. She will have a pelvic ultrasound ordered by obstetrics gyn. [facility], [facility] Medical History (Updated 02/02/25 @ 13:12 by Kelly Hayden MD) Vaginitis Neck pain Overweight Anemia Nephrolithiasis Urinary frequency Annual physical exam Rheumatoid arthritis GERD (gastroesophageal reflux disease) Hypertension Surgical History Hx of tubal ligation History of arthroscopy of right knee History of section Chronic cholecystitis due to cholelithiasis with choledocholithiasis History of laparoscopic cholecystectomy (05/08/20) History of lumpectomy of right breast deliv NOS-unsp Family History Father No problems noted. Mother HTN (hypertension) Osteoarthritis Brother No problems noted. Sister No problems noted. Sister No problems noted. Son No problems noted. Son No problems noted. Son No problems noted. 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 1. Little interest or pleasure in doing things: not at all 2. Feeling down, depressed, or hopeless: not at all 3. Trouble falling or staying asleep, or sleeping too much: not at all 4. Feeling tired or having little energy: not at all 5. Poor appetite or overeating: not at all 6. Feeling bad about yourself - or that you are a failure or have let yourself or your family down: not at all 7. Trouble concentrating on things, such as reading the newspaper or watching television: not at all 8. Moving or speaking so slowly that other people could have noticed. Or the opposite - being so fidgety or restless that you have been moving around a lot more than usual: not at all 9. Thoughts that you would be better off or of hurting yourself in some way: not at all Total score: 0 Depression Screening Interpretation: Negative Depression Screening Done: Yes 47986 - PHQ-9 Billing: Yes Source: Developed by Drs. Romeo Mendoza, Shala Davis, Philip Fry and colleagues, with an educational philip from [employer]. Thrive Questionnaire Date Thrive assessed: 01/26/25 I am a: Patient What is your living situation today?: I have a steady place to live Within the past 12 months, did the food you bought not last and you didn't have the money to get more?: Never true Within the past 12 months, did you worry whether your food would run out before you got money to buy more?: Never true Do you have trouble paying for medicines?: No Do you have trouble getting transportation to medical appointments?: No Do you have trouble paying your heating and electricity bill?: No Do you have trouble taking care of your child, family member or friend?: No Do you have trouble with day-to-day activities such as bathing, preparing meals, shopping, managing finances, etc.?: No Are you currently unemployed and looking for a job?: No Are you interested in more education?: I choose not to answer this question Please select the resources that you would like help with: None Currently or been in a relationship where the following occur: No concerns reported THRIVE Score: 0 AUDIT C Alcohol Use Questionnaire (AUDIT-C) 1. How often do you have a drink containing alcohol?: Never 2. How many drinks containing alcohol do you have on a typical day when you are drinking?: 1 or 2 3. How often do you have six or more drinks on one occasion?: Never Total Score: 0 ISAK-7 AMB Questionnaire ISAK-7 Date ISAK - 7 assessed: 07/25/23 Feeling nervous, anxious, or on edge: 0 = Not at all Not being able to stop or control worryin = Not at all Worrying too much about different things: 0 = Not at all Trouble relaxin = Not at all Being so restless that it is hard to sit still: 0 = Not at all Becoming easily annoyed or irritable: 0 = Not at all Feeling afraid as if something awful might happen: 0 = Not at all Total ISAK-7 score (0-4 normal; 5-9 mild; 10-14 moderate; 15-21 severe): 0 Source: Developed by Drs. Romeo Mendoza, Shala Davis, Philip Fry and colleagues, with an educational phiilp from [employer]. Review of Systems Const All systems reviewed & are unremarkable except as noted in HPI and below Eyes Reports no additional complaints ENT Reports no additional complaints Card Reports no additional complaints Resp Reports no additional complaints GI Reports no additional complaints Reports no additional complaints Physical exam (Primary Care) Vital Signs: Last Vital Signs Temp 98.2 F 02/02/25 12:26 Pulse 73 02/02/25 12:26 Resp 18 02/02/25 12:26 BP 120/78 02/02/25 12:26 Pulse Ox 98 02/02/25 12:26 Oxygen Delivery Method Room Air 02/02/25 12:26 BMI result Body Mass Index 31.6 Tobacco/Smoking Status: Tobacco use Status Tobacco use date assessed 02/02/25 02/02/25 12:30 Patient Tobacco Use Status Never used Tobacco 02/02/25 12:30 e-Cigarette/Vaping Use Never Used 02/02/25 12:30 PHQ-9: PHQ-9 Score PHQ-9: Total score 0 02/02/25 12:30 Depression Screening Interpretation: Negative Thrive Assessment: Date of Thrive Assessment Date Thrive assessed 01/26/25 02/02/25 12:30 Currently or been in a relationship where the following occur: No concerns reported Const General: no acute distress HENMT Head: Yes normal to inspection Face and sinus: Yes normal facial exam Eyes General: appearance normal, both eyes and all related structures Resp Effort & Inspection: normal respiratory effort Auscultation: clear to auscultation bilaterally Cardio Rhythm: regular rhythm Heart sounds: S1 normal heart sound present and S2 normal heart sound present GI Inspection: Yes normal to inspection Palpation (GI): Soft to palpation Percussion: Yes normal to percussion Auscultation: normal bowel sounds Coding Level of Care Code Est Pt Prev Care 40-64y(82194) Diagnoses Urinary urgency R39.15 Hypertension I10 Obesity (BMI 30-39.9) E66.9 Rheumatoid arthritis M06.9 Annual physical exam Z00.00 Additional Codes PHQ-9 - 27924 - PHQ-9 Billing: Yes ([id number]) Assessment & Plan Assessment & Plan (1) Urinary urgency: Code(s): R39.15 - Urgency of urination Category: Medical Plan: Obtain bladder ultrasound to rule out urinary retention (2) Hypertension: Code(s): I10 - Essential (primary) hypertension Category: Medical Plan: Continue lisinopril (3) Obesity (BMI 30-39.9): Code(s): E66.9 - Obesity, unspecified Category: Medical Plan: decreasing caloric intake increasing physical activity weight loss discussed with the (4) Rheumatoid arthritis: Comment: Follow-up with arthritis treatment center Code(s): M06.9 - Rheumatoid arthritis, unspecified Category: Medical Plan: Follow-up with rheumatology (5) Annual physical exam: Code(s): Z00.00 - Encounter for general adult medical examination without abnormal findings Category: Medical Plan: Well-balanced diet regular physical activity discussed with the patient. She is up-to-date with the mammogram Pap smear by obstetrics gyn and will be referred to GI for colonoscopy. Physical in 1 year with a fasting labs before Orders: Orders Lipid Panel Today D64.9 - Anemia, unspecified, Z00.00 - Encounter for general adult medical examination without abnormal findings IRON PROFILE Today D64.9 - Anemia, unspecified, Z00.00 - Encounter for general adult medical examination without abnormal findings Complete Blood Count Auto Diff 1 Year I10 - Essential (primary) hypertension, Z00. - Encounter for general adult medical examination without abnormal findings IRON PROFILE 1 Year I10 - Essential (primary) hypertension, Z00.00 - Encounter for general adult medical examination without abnormal findings US bladder Today R39.15 - Urgency of urination Comprehensive [place]. Panel Fast 1 Year I10 - Essential (primary) hypertension, Z00. - Encounter for general adult medical examination without abnormal findings Lipid Panel 1 Year I10 - Essential (primary) hypertension, Z00.00 - Encounter for general adult medical examination without abnormal findings TSH reflex Free T4 1 Year I10 - Essential (primary) hypertension, Z00. - Encounter for general adult medical examination without abnormal findings UA w Microscopic 1 Year I10 - Essential (primary) hypertension, Z00.00 - Encounter for general adult medical examination without abnormal findings Referrals Gastroenterology Referral Z00.00 - Encounter for general adult medical examination without abnormal findings Medications: Refilled lisinopril 10 mg PO DAILY 90 tabs 3RF
== END 2025-02-02 13:06 | disposition home or self-care (01) ==
LOC: HO.HMCC 11:52
PROVIDERS: PCP Internal Medicine; Visit Provider Internal Medicine
DX: Z00.00 Encounter for general adult medical examination without abnormal findings (principal); M06.9 Rheumatoid arthritis, unspecified; R39.15 Urgency of urination; I10 Essential (primary) hypertension; E66.9 Obesity, unspecified

== ENCOUNTER → 2025-02-02 11:51 | Outpatient (BNVA) | payer OTHER, SELFPAY | PROVIDERS: PCP Internal Medicine; Visit Provider Internal Medicine | DX: Z00.00 Encounter for general adult medical examination without abnormal findings (principal); R39.15 Urgency of urination; I10 Essential (primary) hypertension; E66.9 Obesity, unspecified; M06.9 Rheumatoid arthritis, unspecified; Z68.31 Body mass index [BMI] 31.0-31.9, adult | CPT/HCPCS: 96127; 99396 ==

== ENCOUNTER 2025-03-11 10:23 | Outpatient (AMB) | payer OTHER, SELFPAY ==
[2025-03-11 10:31] VITALS: BP 128/62; BMI 36.2
--- NOTE | 2025-03-11 10:31 | MHC.OFFVIS ---
Vital Signs 03/11/25 10:31 Height 5 ft 2 in Weight 198 lb BMI 36.2 BP 128/62 Intake Visit Reasons: PMB Corrosion Control Specialist Required: No Sort Manager: Sort Manager Present Accompanied by: Self / Same As Patient Allergies No Known Allergies Allergy (Verified 03/11/25 10:32) Post menopausal: Yes HPI Comments Details: Presenting for annual exam complaining of an episode of vaginal bleeding after 1 year of amenorrhea Last co testing was in 2023 was negative Last mammogram in 08/31 was BI-RADS 2 No previous screening colonoscopy [facility] Medical History Vaginitis Neck pain Overweight Anemia Nephrolithiasis Urinary frequency Annual physical exam Rheumatoid arthritis GERD (gastroesophageal reflux disease) Hypertension Surgical History Hx of tubal ligation History of arthroscopy of right knee History of section Chronic cholecystitis due to cholelithiasis with choledocholithiasis History of laparoscopic cholecystectomy (05/08/20) History of lumpectomy of right breast deliv NOS-unsp Family History Father No problems noted. Mother HTN (hypertension) Osteoarthritis Diabetes Brother No problems noted. Sister No problems noted. Sister No problems noted. Son No problems noted. Son No problems noted. Son No problems noted. 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 Sexually active: Yes Sexual orientation: Straight/Heterosexual Gender identity: Female Cognitive needs: No Hearing needs: No Vision needs: Yes Female Reproductive History Menstrual Age of Menarche: 10 Menopause type: natural Age of menopause: 47 Total pregnancies: 3 Full term: 3 Number of Living Children: 3 History of abnormal pap smear: No Review of Systems Const All systems reviewed & are unremarkable except as noted in HPI and below Card Reports as per HPI Resp Reports as per HPI GI Reports as per HPI and Reports no additional complaints Reports as per HPI Physical Exam Vital Signs: Last Vital Signs BP 128/62 03/11/25 10:31 BMI result Body Mass Index 36.2 Const General: cooperative, healthy appearing and comfortable Chest Chest palpation & inspection: normal inspection of the chest and normal palpation of entire chest wall Breast/axilla inspection: normal inspection of the breasts and normal inspection of the axillae Breast/axilla palpation: normal palpation of the breasts, normal palpation of the axillae and no axillary lymphadenopathy Resp Effort & Inspection: normal respiratory effort Auscultation: clear to auscultation bilaterally Percussion: percussion normal Cardio Palpation: normal PMI Rate: regular rate Rhythm: regular rhythm Heart sounds: no murmurs and no rubs Peripheral pulses: Peripheral pulses 2+ throughout GI Inspection: Yes normal to inspection Palpation (GI): Soft to palpation, nontender, no guarding, not rigid and No hepatosplenomegaly present Percussion: Yes normal to percussion Auscultation: normal bowel sounds Rectal Exam - Female: deferred General: Yes bladder normal to palpation External Female Exam: No lesion Speculum Exam - Vagina: normal appearance of the vagina, normal palpation, normal vaginal discharge and not erythematous Speculum Exam - Cervix: normal appearance of the cervix and normal palpation Bimanual exam- vagina & uterus: normal bimanual exam, normal palpation, uterine size normal, bladder normal to palpation, consistency normal and normal palpation Bimanual Exam- Adnexa, other: normal adnexae, no masses and no tenderness Assessment & Plan Assessment & Plan (1) Well woman exam: Code(s): Z01.419 - Encounter for gynecological examination (general) (routine) without abnormal findings Category: Medical Plan: Co testing not indicated this year. Counseled the patient about the recommended dietary allowance of 1200 mg of Calcium & 600 IU of vitamin D. Instructions given the patient is schedule next screening Mammogram . The patient was referred to GI for screening colonoscopy . The patient was instructed to perform monthly self-breast exams and schedule annual exam in a year. All questions answered and the patient verbalized understanding. (2) Postmenopausal bleeding: Code(s): N95.0 - Postmenopausal bleeding Category: Medical Plan: Discussed with the patient the differential diagnosis of post menopausal bleeding with normal pelvic exam including but not limited to, endometrial hyperplasia, cancer, polyps and other causes; recommended ultrasound to measure the endometrial stripe; discussed with the patient that if the endometrial thickness is 4 mm or less the negative predictive value of endometrial pathology is 99%, otherwise If endometrial thickness is more than 4 mm will proceed with endometrial sampling versus hysteroscopy D&C polypectomy depending on the ultrasound findings. Instructed the patient to schedule an ultrasound with a follow-up appointment in 2 weeks. All questions answered, the patient verbalized understanding and agreed with the plan. This note was generated with a voice recognition program. Some errors may have been overlooked during the review of this note. Sometimes these errors may affect the content or meaning of a given sentence. Orders: Referrals Gastroenterology Referral Z12.11 - Encounter for screening for malignant neoplasm of colon Coding Level of Care Code Est Pt Level 3 (00033) Est Pt Prev Care 40-64y(24104) Diagnoses Well woman exam Z01.419 Postmenopausal bleeding N95.0
== END 2025-03-11 11:08 | disposition home or self-care (01) ==
LOC: HO.HWS 10:23
PROVIDERS: PCP Internal Medicine; Visit Provider Obstetrics & Gynecology
DX: Z01.419 Encounter for gynecological examination (general) (routine) without abnormal findings (principal); N95.0 Postmenopausal bleeding
CPT/HCPCS: 99213; 99396; 99459

== ENCOUNTER → 2025-03-11 10:23 | Outpatient (BNVA) | payer OTHER, SELFPAY | PROVIDERS: PCP Internal Medicine; Visit Provider Obstetrics & Gynecology | DX: Z01.419 Encounter for gynecological examination (general) (routine) without abnormal findings (principal); N95.0 Postmenopausal bleeding | CPT/HCPCS: 99212; 99396 ==

== ENCOUNTER 2025-03-16 14:09 | Outpatient (REF) | payer OTHER, SELFPAY ==
--- NOTE | ~2025-03-16 | US_ITS ---
EXAMINATION: US PELVIS CLINICAL INFORMATION: Urinary retention/urgency COMPARISON: None available. TECHNIQUE: Ultrasound of the pelvis is performed using both transabdominal and transvaginal transducers along with Doppler. Transvaginal imaging is performed due to inadequate visualization transabdominally. FINDINGS: Uterus: The uterus is anteverted and measures 9 x 5 x 5 cm. Volume: 107 cc. The double wall endometrial thickness is 2 mm. The uterus is smooth in contour and has normal myometrial echogenicity. No visible fibroid. Adnexa: The ovaries are identified with flow on color Doppler interrogation.. Free fluid in the cul-de-sac. Right ovary measures 1 x 1 x 1 cm. Volume: 1 cc. Left ovary measures 2 x 2 x 1 cm. Volume: 2 cc. Bladder is fluid-filled. Bilateral ureters jets are present. Prevoid volume: 200 cc. Post void volume: 33 cc. US/US pelvic and transvaginal IMPRESSION: 33 cc of retained urine in a post void image. Normal uterus and ovaries. Electronically signed by: Josep Quintero MD 03/16/2025 03:48 PM EDT
== END 2025-03-16 14:10 | disposition home or self-care (01) ==
LOC: HO.US 14:09
PROVIDERS: PCP Internal Medicine; Visit Provider Internal Medicine
DX: R10.2 Pelvic and perineal pain (principal)
CPT/HCPCS: 76830; 76856

== ENCOUNTER → 2025-03-16 14:11 | Outpatient (BNV) | payer OTHER, SELFPAY | PROVIDERS: PCP Internal Medicine; Visit Provider Radiology Diagnostic Radiology | DX: R10.2 Pelvic and perineal pain (principal); R33.9 Retention of urine, unspecified | CPT/HCPCS: 76830; 76856 ==

== ENCOUNTER 2025-03-23 10:41 | Outpatient (AMB) | payer OTHER, SELFPAY ==
--- NOTE | 2025-03-23 10:41 | MHC.OFFVIS ---
Intake Visit Reasons: ultrasound results Allergies No Known Allergies Allergy (Verified 03/11/25 10:32) HPI Comments Details: The patient is schedule telehealth visit for follow-up pelvic ultrasound regarding episode of postmenopausal bleeding. Pelvic ultrasound showed the following: Uterus: The uterus is anteverted and measures 9 x 5 x 5 cm. Volume: 107 cc. The double wall endometrial thickness is 2 mm. The uterus is smooth in contour and has normal myometrial echogenicity. No visible fibroid. Adnexa: The ovaries are identified with flow on color Doppler interrogation.. Free fluid in the cul-de-sac. Right ovary measures 1 x 1 x 1 cm. Volume: 1 cc. Left ovary measures 2 x 2 x 1 cm. Volume: 2 cc. Bladder is fluid-filled. Bilateral ureters jets are present. Prevoid volume: 200 cc. Post void volume: 33 cc. [facility] Medical History Vaginitis Neck pain Overweight Anemia Nephrolithiasis Urinary frequency Annual physical exam Rheumatoid arthritis GERD (gastroesophageal reflux disease) Hypertension Surgical History Hx of tubal ligation History of arthroscopy of right knee History of section Chronic cholecystitis due to cholelithiasis with choledocholithiasis History of laparoscopic cholecystectomy (05/08/20) History of lumpectomy of right breast deliv NOS-unsp Family History Father No problems noted. Mother HTN (hypertension) Osteoarthritis Diabetes Brother No problems noted. Sister No problems noted. Sister No problems noted. Son No problems noted. Son No problems noted. Son No problems noted. 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 Sexual orientation: Straight/Heterosexual Gender identity: Female Cognitive needs: No Hearing needs: No Vision needs: Yes Female Reproductive History Menstrual Age of Menarche: 10 Review of Systems Const All systems reviewed & are unremarkable except as noted in HPI and below Reports as per HPI and Reports no additional complaints GI Reports no additional complaints Reports no additional complaints Telehealth Telehealth Telehealth Platform: [employer] Location of provider rendering services: practice address Location of patient: address on file Patient Identification confirmed using: Name, : Yes Telehealth method: video Patient verbally consented to treatment: Yes Patient verbally consented to billing insurance company: Yes Patient informed of any privacy concerns related to visit: Yes Assessment & Plan Assessment & Plan (1) Postmenopausal bleeding: Code(s): N95.0 - Postmenopausal bleeding Category: Medical Plan: Discussed with the patient the results of the pelvic ultrasound showing an endometrial stripe thickness of 2 mm. Explained to the patient with an endometrial stripe of 4 mm &/or less, there is a high negative predictive value in detecting endometrial pathology including endometrial hyperplasia, polyps or malignancy. Therefore, there is no indication for endometrial sampling. Discussed with the patient the sensitivity, specificity, and positive and the negative predictive value of using ultrasound in detecting endometrial pathology. The patient was instructed to call if bleeding recurs, will proceed with endometrial sampling out endometrial pathology. All questions were answered and the patient verbalized understanding and agreed with the plan. I spent a total of 20 minutes reviewing the chart, talking to the patient via video and documenting in the medical record. Coding Level of Care Code Tele Est Pt Level 3 (10113) Diagnoses Postmenopausal bleeding N95.0
== END 2025-03-23 10:59 | disposition home or self-care (01) ==
LOC: HO.HWS 10:41
PROVIDERS: PCP Internal Medicine; Visit Provider Obstetrics & Gynecology
DX: N95.0 Postmenopausal bleeding (principal)
CPT/HCPCS: 98005

== ENCOUNTER 2025-04-28 15:24 | Outpatient (REF) | payer OTHER, SELFPAY | END 2025-04-28 15:25 | disposition home or self-care (01) | LOC: HO.LNP 15:24 | PROVIDERS: PCP Internal Medicine; Visit Provider Obstetrics & Gynecology | DX: N95.0 Postmenopausal bleeding (principal); Z32.02 Encounter for pregnancy test, result negative | CPT/HCPCS: 58100; 81025; 88305 ==

== ENCOUNTER 2025-04-28 15:24 | Outpatient (AMB) | payer OTHER, SELFPAY ==
--- NOTE | 2025-04-28 15:42 | MHC.OFFVIS ---
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 Pelvic Ultrasound done in 03/31 endometrial stripe was 2 mm Last co testing in 03/30 was negative [facility] Medical History Vaginitis Neck pain Overweight Anemia Nephrolithiasis Urinary frequency Annual physical exam Rheumatoid arthritis GERD (gastroesophageal reflux disease) Hypertension Surgical History Hx of tubal ligation History of arthroscopy of right knee History of section Chronic cholecystitis due to cholelithiasis with choledocholithiasis History of laparoscopic cholecystectomy (05/08/20) History of lumpectomy of right breast deliv NOS-unsp Family History Father No problems noted. Mother HTN (hypertension) Osteoarthritis Diabetes Brother No problems noted. Sister No problems noted. Sister No problems noted. Son No problems noted. Son No problems noted. Son No problems noted. 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 Sexual orientation: Straight/Heterosexual Gender identity: Female Cognitive needs: No Hearing needs: No Vision needs: Yes Female Reproductive History Menstrual Age of Menarche: 10 Date of last menstrual period: 04/24/25 control method: permanent sterilization Review of Systems Const All systems reviewed & are unremarkable except as noted in HPI and below Physical Exam General: Yes no CVA tenderness External Female Exam: normal external appearance and normal appearance of the urethra Speculum Exam - Vagina: normal appearance of the vagina, normal palpation, no lesions and no masses Speculum Exam - Cervix: normal appearance of the cervix, normal palpation, no lesions, no masses and nontender Bimanual exam- vagina & uterus: normal bimanual exam, normal palpation, uterine size normal, normal palpation, uterine shape normal, No Cervical tenderness present and non-tender Bimanual Exam- Adnexa, other: normal adnexae Back/Spine/Pelvis Back: no CVA tenderness Office Procedures Endometrial Biopsy Details: The patient was counseled regarding the indication and benefits of endometrial sampling to rule out endometrial pathology including not limited to endometrial hyperplasia or endometrial cancer and others; The alternatives (Either do nothing vs. hysteroscopy D&C) & the risks were discussed with the patient including but not limited: pain, uterine perforation, bleeding, infection, possible injury to bladder, bowel, ureter, possible need for blood transfusion with all its possible risks. The patient verbalized understanding all questions answered and signed consent. Urine test done in the office was negative The patient was placed into the dorsal lithotomy position; a speculum was inserted in the vagina. Using aseptic technique for the procedure, the cervix was cleansed with Betadine. The anterior lip of the cervix was grasped with a single tooth tenaculum. The uterus was sounded to 7 cm with a 4 mm Pipelle was used. Tissues samples were obtained and placed in formalin, in a patient labeled container and sent to the pathology department. At the end of the procedure, there was minimal bleeding noted The patient tolerated the procedure well and was discharged in good condition with the following instructions: Nothing in the vagina until the bleeding stops. No sex until the bleeding stops, to call if any of the following occurs: fever (>100.4), flu-like symptoms, abdominal pain, heavy bleeding, four smelling vaginal discharge. The patient was instructed to schedule a Follow up appointment in 2 weeks to discuss pathology results of the biopsy and treatment options. This note was generated with a voice recognition program. Some errors may have been overlooked during the review of this note. Sometimes these errors may affect the content or meaning of a given sentence. [id number] Biopsy Results AMB Test Urine AMB Test Urine Negative Last Edit by Reema Leo CMA on 04/28/25 15:56 Assessment & Plan Assessment & Plan (1) Postmenopausal bleeding: Code(s): N95.0 - Postmenopausal bleeding Category: Medical Plan: And since the patient has recurrent episodes of vaginal bleeding, Recommended to the patient that the next step is an endometrial sampling via hysteroscopy D&C possible polypectomy versus endometrial biopsy to r/o endometrial pathology including hyperplasia or cancer. All the pros and cons risks and benefits of each approach were discussed with the patient, endometrial biopsy being less invasive, office procedure with less sensitivity and inability diagnose a polyp and removal versus hysteroscopy done under anesthesia more invasive more sensitive to endometrial cancer and possibility of diagnosing and endometrial polyp with the possibility of polypectomy. All questions were answered pt verbalized understanding and decided to proceed with endometrial biopsy. EMB done, see procedure note Orders: Orders AMB Endometrial Biopsy Today N95.0 - Postmenopausal bleeding AMB HCG Urine Test Today Z32.02 - Encounter for test, result negative Coding Level of Care Code Procedure Only Diagnoses Postmenopausal bleeding N95.0 CPT Codes Endometrial Biopsy - CPT: 42539-Ispuxwziugm Biopsy ([id number])
[2025-04-28 15:49] VITALS: BP 152/90; BMI 36.2
== END 2025-04-28 16:22 | disposition home or self-care (01) ==
LOC: HO.HWS 15:25
PROVIDERS: PCP Internal Medicine; Visit Provider Obstetrics & Gynecology
DX: N95.0 Postmenopausal bleeding (principal); Z32.02 Encounter for pregnancy test, result negative
CPT/HCPCS: 58100

== ENCOUNTER 2025-05-18 14:39 | Outpatient (REF) | payer OTHER, SELFPAY | END 2025-05-18 14:40 | disposition home or self-care (01) | LOC: HO.LNP 14:39 | PROVIDERS: PCP Internal Medicine; Visit Provider Obstetrics & Gynecology | DX: N95.0 Postmenopausal bleeding (principal) | CPT/HCPCS: 58100; 88305 ==

== ENCOUNTER 2025-05-18 14:39 | Outpatient (AMB) | payer OTHER, SELFPAY ==
[2025-05-18 14:48] VITALS: BP 118/70; BMI 36.2
--- NOTE | 2025-05-18 14:48 | MHC.OFFVIS ---
Vital Signs 05/18/25 14:48 Height 5 ft 2 in Weight 198 lb BMI 36.2 BP 118/70 Intake Visit Reasons: emb results Health Program Director Required: No Information Interpreted: non-clinical & clinical Accompanied by: Self / Same As Patient Allergies No Known Allergies Allergy (Verified 05/18/25 14:48) HPI Comments Details: The patient is presenting after endometrial biopsy. The patient has no complaints, no vaginal bleeding, no feverishness chills or abdominal pain. The endometrial biopsy pathology report showed the following: Benign squamous epithelium and scant benign endocervical glandular epithelium; insufficient for endometrial evaluation [facility] Medical History Vaginitis Neck pain Overweight Anemia Nephrolithiasis Urinary frequency Annual physical exam Rheumatoid arthritis GERD (gastroesophageal reflux disease) Hypertension Surgical History Hx of tubal ligation History of arthroscopy of right knee History of section Chronic cholecystitis due to cholelithiasis with choledocholithiasis History of laparoscopic cholecystectomy (05/08/20) History of lumpectomy of right breast deliv NOS-unsp Family History Father No problems noted. Mother HTN (hypertension) Osteoarthritis Diabetes Brother No problems noted. Sister No problems noted. Sister No problems noted. Son No problems noted. Son No problems noted. Son No problems noted. 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 Sexual orientation: Straight/Heterosexual Gender identity: Female Cognitive needs: No Hearing needs: No Vision needs: Yes Female Reproductive History Menstrual Age of Menarche: 10 Review of Systems Const All systems reviewed & are unremarkable except as noted in HPI and below Reports as per HPI and Reports no additional complaints GI Reports no additional complaints Reports no additional complaints Physical Exam Vital Signs: Last Vital Signs BP 118/70 05/18/25 14:48 BMI result Body Mass Index 36.2 Office Procedures Endometrial Biopsy Details: The patient was counseled regarding the indication and benefits of endometrial sampling to rule out endometrial pathology including not limited to endometrial hyperplasia or endometrial cancer and others; The alternatives (Either do nothing vs. hysteroscopy D&C) & the risks were discussed with the patient including but not limited: pain, uterine perforation, bleeding, infection, possible injury to bladder, bowel, ureter, possible need for blood transfusion with all its possible risks. The patient verbalized understanding all questions answered and signed consent. The patient was placed into the dorsal lithotomy position; a speculum was inserted in the vagina. Using aseptic technique for the procedure, the cervix was cleansed with Betadine. The anterior lip of the cervix was grasped with a single tooth tenaculum. The uterus was sounded to 6 cm with a 4 mm Pipelle was used. Tissues samples were obtained and placed in formalin, in a patient labeled container and sent to the pathology department. At the end of the procedure, there was minimal bleeding noted The patient tolerated the procedure well and was discharged in good condition with the following instructions: Nothing in the vagina until the bleeding stops. No sex until the bleeding stops, to call if any of the following occurs: fever (>100.4), flu-like symptoms, abdominal pain, heavy bleeding, four smelling vaginal discharge. The patient was instructed to schedule a Follow up appointment in 2 weeks to discuss pathology results of the biopsy and treatment options. This note was generated with a voice recognition program. Some errors may have been overlooked during the review of this note. Sometimes these errors may affect the content or meaning of a given sentence. [id number] Biopsy Assessment & Plan Assessment & Plan (1) Postmenopausal bleeding: Comment: Recurrent with EMB insufficient for diagnosis Code(s): N95.0 - Postmenopausal bleeding Category: Medical Plan: Discussed with the patient the results of EMB pathology, insufficient for endometrial evaluation. Recommended to the patient that the next step is an endometrial sampling via hysteroscopy D&C possible polypectomy versus endometrial biopsy to r/o endometrial pathology including hyperplasia or cancer. All the pros and cons risks and benefits of each approach were discussed with the patient, endometrial biopsy being less invasive, office procedure with less sensitivity and inability diagnose a polyp and removal versus hysteroscopy done under anesthesia more invasive more sensitive to endometrial cancer and possibility of diagnosing and endometrial polyp with the possibility of polypectomy. All questions were answered pt verbalized understanding and decided to proceed with endometrial biopsy. EMB done, see procedure note Orders: Orders Surgical Today N95.0 - Postmenopausal bleeding AMB Endometrial Biopsy Today N95.0 - Postmenopausal bleeding Coding Level of Care Code Procedure Only Diagnoses Postmenopausal bleeding N95.0 CPT Codes Endometrial Biopsy - CPT: 90094-Rdcjvsfsmdd Biopsy ([id number])
== END 2025-05-18 15:12 | disposition home or self-care (01) ==
LOC: HO.HWS 14:40
PROVIDERS: PCP Internal Medicine; Visit Provider Obstetrics & Gynecology
DX: N95.0 Postmenopausal bleeding (principal)
CPT/HCPCS: 58100

== ENCOUNTER 2025-05-24 09:15 | Outpatient (AMB) | payer OTHER, SELFPAY ==
--- NOTE | 2025-05-24 09:15 | A.OFFVIS_ITS ---
Intake Visit Reasons: EMB results Allergies No Known Allergies Allergy (Verified 05/18/25 14:48) HPI Comments Details: The patient scheduled telehealth visit post EMB. Doing well with no complaints no vaginal bleeding or any other concerns. The pathology showed the following: Endometrium, biopsy: Rare superficial strips of endometrium, endocervical and squamous epithelium with varying degrees of degenerative changes; mucoinflammatory material and blood; no atypia identified. See comment. Comment: The endometrium is sparse; consider resampling, as clinically appropriate [facility] Medical History Vaginitis Neck pain Overweight Anemia Nephrolithiasis Urinary frequency Annual physical exam Rheumatoid arthritis GERD (gastroesophageal reflux disease) Hypertension Surgical History Hx of tubal ligation History of arthroscopy of right knee History of section Chronic cholecystitis due to cholelithiasis with choledocholithiasis History of laparoscopic cholecystectomy (05/08/20) History of lumpectomy of right breast deliv NOS-unsp Family History Father No problems noted. Mother HTN (hypertension) Osteoarthritis Diabetes Brother No problems noted. Sister No problems noted. Sister No problems noted. Son No problems noted. Son No problems noted. Son No problems noted. 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 Sexual orientation: Straight/Heterosexual Gender identity: Female Cognitive needs: No Hearing needs: No Vision needs: Yes Female Reproductive History Menstrual Age of Menarche: 10 Review of Systems Const All systems reviewed & are unremarkable except as noted in HPI and below Reports as per HPI and Reports no additional complaints GI Reports no additional complaints Reports no additional complaints Telehealth Telehealth Telehealth Platform: [facility] Location of provider rendering services: practice address Location of patient: address on file Patient Identification confirmed using: Name, : Yes Telehealth method: video Patient verbally consented to treatment: Yes Patient verbally consented to billing insurance company: Yes Patient informed of any privacy concerns related to visit: Yes Minutes spent on Phone/Video with Pt.: 3 Assessment & Plan Assessment & Plan (1) Postmenopausal bleeding: Comment: Recurrent with EMB insufficient for diagnosis Code(s): N95.0 - Postmenopausal bleeding Category: Medical Plan: Discussed with the patient the results of endometrial biopsy pathology, insufficient tissues for diagnosis. Recommended to the patient that the next step is to repeat endometrial sampling via hysteroscopy D&C possible polypectomy versus office endometrial biopsy to r/o endometrial pathology including hyperplasia or cancer. All the pros and cons risks and benefits of each approach were discussed with the patient, endometrial biopsy being less invasive, office procedure with less sensitivity and inability diagnose a polyp and removal versus hysteroscopy done under anesthesia more invasive more sensitive to endometrial cancer and possibility of diagnosing and endometrial polyp with the possibility of polypectomy. All questions were answered pt verbalized understanding and decided to proceed with hysteroscopy D&C polypectomy myomectomy. Instructions given the patient to schedule a follow-up visit I spent a total of 20 minutes reviewing the chart, talking to the patient via video and documenting in the medical record. Coding Level of Care Code Tele Est Pt Level 3 (34439) Diagnoses Postmenopausal bleeding N95.0
== END 2025-05-24 10:24 | disposition home or self-care (01) ==
LOC: HO.HWS 09:15
PROVIDERS: PCP Internal Medicine; Visit Provider Obstetrics & Gynecology
DX: N95.0 Postmenopausal bleeding (principal)
CPT/HCPCS: 98005

== ENCOUNTER 2025-05-31 07:51 | Outpatient (AMB) | payer OTHER, SELFPAY ==
--- NOTE | 2025-05-31 07:56 | A.OFFVIS_ITS ---
Vital Signs 05/31/25 07:57 Height 5 ft 2 in Weight 198 lb BMI 36.2 BP 120/84 Intake Visit Reasons: pre op for hysteroscopy Data Analysis Assistant Required: No Information Interpreted: non-clinical & clinical Director Of Transportation: Director Of Transportation Present Accompanied by: Self / Same As Patient Allergies No Known Allergies Allergy (Verified 05/18/25 14:48) Is last menstrual period known: Yes Last menstrual period: 05/04/20 Post menopausal: No Patient : No Do you need a note to return to daycare/school/sports/work: Yes (for surgery on friday) HPI Comments Details: The patient is presenting after endometrial biopsy. The patient has no complaints, no vaginal bleeding, no feverishness chills or abdominal pain. The endometrial biopsy pathology report showed the following: Endometrium, biopsy: Rare superficial strips of endometrium, endocervical and squamous epithelium with varying degrees of degenerative changes; mucoinflammatory material and blood; no atypia identified. See comment. Comment: The endometrium is sparse; consider resampling, as clinically appropriate. [facility] Medical History Vaginitis Neck pain Overweight Anemia Nephrolithiasis Urinary frequency Annual physical exam Rheumatoid arthritis GERD (gastroesophageal reflux disease) Hypertension Surgical History Hx of tubal ligation History of arthroscopy of right knee History of section Chronic cholecystitis due to cholelithiasis with choledocholithiasis History of laparoscopic cholecystectomy (05/08/20) History of lumpectomy of right breast deliv NOS-unsp Family History Father No problems noted. Mother HTN (hypertension) Osteoarthritis Diabetes Brother No problems noted. Sister No problems noted. Sister No problems noted. Son No problems noted. Son No problems noted. Son No problems noted. 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 Sexual orientation: Straight/Heterosexual Gender identity: Female Cognitive needs: No Hearing needs: No Vision needs: Yes Female Reproductive History Menstrual Age of Menarche: 10 Date of last menstrual period: 05/04/20 Total pregnancies: 2 Full term: 2 Review of Systems Card Reports as per HPI and Reports no additional complaints Resp Reports as per HPI and Reports no additional complaints GI Reports as per HPI and Reports no additional complaints Reports as per HPI Physical Exam Vital Signs: Last Vital Signs BP 120/84 05/31/25 07:57 BMI result Body Mass Index 36.2 Const General: cooperative, healthy appearing and comfortable Resp Effort & Inspection: normal respiratory effort Auscultation: clear to auscultation bilaterally Percussion: percussion normal Cardio Palpation: normal PMI Rate: regular rate Rhythm: regular rhythm Heart sounds: no murmurs and no rubs Peripheral pulses: Peripheral pulses 2+ throughout GI Inspection: Yes normal to inspection Palpation (GI): Soft to palpation, nontender, no guarding, not rigid and No hepatosplenomegaly present Percussion: Yes normal to percussion Auscultation: normal bowel sounds Rectal Exam - Female: deferred Assessment & Plan Assessment & Plan (1) Postmenopausal bleeding: Comment: Recurrent with EMB insufficient for diagnosis Code(s): N95.0 - Postmenopausal bleeding Category: Medical Plan: Discussed with the patient the results of EMB pathology, insufficient for endometrial evaluation, explained to the patient that endometrial pathology including endometrial hyperplasia and/or malignancy has not been ruled out yet. Recommended to the patient that the next step is an endometrial sampling via hysteroscopy D&C possible polypectomy versus endometrial biopsy to r/o endometrial pathology including hyperplasia or cancer. All the pros and cons risks and benefits of each approach were discussed with the patient, endometrial biopsy being less invasive, office procedure with less sensitivity and inability diagnose a polyp and removal versus hysteroscopy done under anesthesia more invasive more sensitive to endometrial cancer and possibility of diagnosing and endometrial polyp with the possibility of polypectomy. All questions were answered pt verbalized understanding and decided to proceed with hysteroscopy D&C possible polypectomy/myomectomy. Discussed with the patient the procedure , all benefits and risks including but not limited to inability to complete the procedure , insufficient endometrial tissue for a complete evaluation of the endometrial cavity , bleeding, infection, possible need for blood transfusion with all its risk ( HIV,syphilis, Hepatitis, anaphylaxis shock, others..), injury to bladder, rectum, possible need for laparoscopy/laparotomy or hysterectomy. The patient verbalized und erstanding and signed the consent. Instructions given the patient to stay NPO after midnight the day prior to the procedure and to take only the specific medication (s) discussed the morning of the surgical procedure and to schedule a 2 week postoperative appointment Coding Level of Care Code Est Pt Level 3 (67006) Diagnoses Postmenopausal bleeding N95.0
[2025-05-31 07:57] VITALS: BP 120/84; BMI 36.2
== END 2025-05-31 08:25 | disposition home or self-care (01) ==
LOC: HO.HWS 07:52
PROVIDERS: PCP Internal Medicine; Visit Provider Obstetrics & Gynecology
DX: N95.0 Postmenopausal bleeding (principal)
CPT/HCPCS: 99213

== ENCOUNTER → 2025-05-31 07:51 | Outpatient (BNVA) | payer OTHER, SELFPAY | PROVIDERS: PCP Internal Medicine; Visit Provider Obstetrics & Gynecology | DX: N95.0 Postmenopausal bleeding (principal); Z98.51 Tubal ligation status | CPT/HCPCS: 99212 ==

== ENCOUNTER 2025-06-10 09:10 | Day surgery (SDC) | payer OTHER, SELFPAY ==
--- NOTE | 2025-06-07 09:46 | HO.ANESPROP2 ---
Documented by User: Esther Alamo NP 06/07/25 09:49 HPI - Anesthesia Eval Consult details Narrative: 49yo F for D&C Hysteroscopy,possible myomectomy,possible polypectomy RA: Hor[facility] Active Problems Active Problems: All Active Problems Postmenopausal bleeding (Acute) Urinary urgency (Acute) Microscopic hematuria (Acute) Pelvic pain (Acute) Vaginitis (Acute) Lumbar pain (Acute) Strain of mid-back (Acute) Well woman exam (Acute) Right-sided chest wall pain (Acute) Elevated LFTs (Acute) Kidney stone on left side (Acute) Back pain (Acute) Renal calculi (Acute) Rib pain on right side (Acute) Dysuria (Acute) Chest wall contusion (Acute) Normal pelvic exam (Acute) Neck pain (Acute) Obesity (BMI 30-39.9) (Acute) Overweight (Acute) Anemia (Acute) Nephrolithiasis (Acute) Urinary frequency (Acute) Somatic dysfunction of right sacroiliac joint (Acute) Annual physical exam (Acute) Rheumatoid arthritis (Acute) Hypertension (Acute) GERD (gastroesophageal reflux disease) (Acute) Chronic cholecystitis due to cholelithiasis with choledocholithiasis (Acute) Past Medical History Medical History Vaginitis Neck pain Overweight Anemia Nephrolithiasis Urinary frequency Annual physical exam Rheumatoid arthritis GERD (gastroesophageal reflux disease) Hypertension Family History Family History Father No problems noted. Mother HTN (hypertension) Osteoarthritis Diabetes Brother No problems noted. Sister No problems noted. Sister No problems noted. Son No problems noted. Son No problems noted. Son No problems noted. Maternal Grandfather HTN (hypertension) Diabetes Maternal Grandmother HTN (hypertension) Diabetes Surgical History Surgical History Hx of tubal ligation History of arthroscopy of right knee History of section Chronic cholecystitis due to cholelithiasis with choledocholithiasis History of laparoscopic cholecystectomy (05/08/20) History of lumpectomy of right breast deliv NOS-unsp Social History Social History Household Members: Spouse and Children Housing: House Alcohol intake: never Patient Tobacco Use Status: Never used Tobacco e-Cigarette/Vaping Use: Never Used Second Hand Smoke Exposure: No Use of substances other than those prescribed or required for medical reasons: No Advance Directives: No Advance Directives Information Provided: Yes Current 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 status: 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 Sexual orientation: Straight/Heterosexual Gender identity: Female Cognitive needs: No Hearing needs: No Vision needs: Yes Meds Allergies Allergy/AdvReac Type Severity Reaction Status Date / Time No Known Allergies Allergy Verified 06/10/25 10:28 Home Medications ?Medication ?Instructions ?Recorded ?Confirmed ?Last Taken ?Type adalimumab 40 mg/0.4 mL 40 mg subcut Q2W 07/25/23 02/02/25 06/09/25 History subcutaneous pen kit (Humira(CF) Pen) Assessment and Plan Assessment Anesthesia Assessment: Chart Reviewed Documented by User: Segundo Alvarado MD 06/10/25 10:52 PMFSH Past Medical History Medical History Vaginitis Neck pain Overweight Anemia Nephrolithiasis Urinary frequency Annual physical exam Rheumatoid arthritis GERD (gastroesophageal reflux disease) Hypertension Family History Family History Father No problems noted. Mother HTN (hypertension) Osteoarthritis Diabetes Brother No problems noted. Sister No problems noted. Sister No problems noted. Son No problems noted. Son No problems noted. Son No problems noted. Maternal Grandfather HTN (hypertension) Diabetes Maternal Grandmother HTN (hypertension) Diabetes Family history of problems with anesthesia: No Surgical History Surgical History Hx of tubal ligation History of arthroscopy of right knee History of section Chronic cholecystitis due to cholelithiasis with choledocholithiasis History of laparoscopic cholecystectomy (05/08/20) History of lumpectomy of right breast deliv NOS-unsp History of Problems with Anesthesia: No Social History Social History Household Members: Spouse and Children Housing: House Alcohol intake: never Patient Tobacco Use Status: Never used Tobacco e-Cigarette/Vaping Use: Never Used Second Hand Smoke Exposure: No Use of substances other than those prescribed or required for medical reasons: No Advance Directives: No Advance Directives Information Provided: Yes Current 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 status: 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 Sexual orientation: Straight/Heterosexual Gender identity: Female Cognitive needs: No Hearing needs: No Vision needs: Yes Meds Allergies Allergy/AdvReac Type Severity Reaction Status Date / Time No Known Allergies Allergy Verified 06/10/25 10:28 Home Medications ?Medication ?Instructions ?Recorded ?Confirmed ?Last Taken ?Type adalimumab 40 mg/0.4 mL 40 mg subcut Q2W 07/25/23 02/02/25 06/09/25 History subcutaneous pen kit (Humira(CF) Pen) Exam Exam Date and Time: 06/10/25 Airway Mallampati Class: II TM Dist: >3cm Neck ROM: Full Heart: rrr Lungs: ctab vesicular Assessment and Plan Assessment Anesthesia Assessment: Anesthesia Plan Discussed Final Anesthetic Review Family History of Problems with Anesthesia: No History of Problems with Anesthesia: No NPO: Yes ASA Class: III Final Preanesthetic Review: No Changes in Pt Med Stat, Meds/Allgs Chart Reviewed, Consent Obtained/Reviewed and Anes Risks/Benef Reviewed Patient Risk: Low Procedure Risk: Low Anesthetic Plan Anesthetic Plan: GA Disposition: Standard PACU
[2025-06-10 10:23] VITALS: BMI 35.6
[2025-06-10 10:29] VITALS: BP 155/88; PULSE 84; RESP 16; TEMP 36.6; O2SAT 100
[2025-06-10] MEDS: Lactated Ringers 1,000 ML 100 ML IVCONT (10:38)
[2025-06-10 10:41] LABS: UPreg QC Valid YES
--- NOTE | 2025-06-10 10:42 | MHC.SHP ---
Pre-Procedural Eval Section A - 24 Hr Update-Section A only Date of Service: 06/10/25 The patient is an INPATIENT: No Changes since office visit: No Cold of Flu in the past 2 weeks, No New Medical Problems, No Changes in Medication and No Patient answered all questions The patient has been examined within 24 hours of the surgical procedure. The History & Physical has been completed within 30 days and I have reviewed it.: Yes Section B - Complete if H&P > 30 days Chief Complaint: Postmenopausal bleeding Allergies: Allergies Allergy/AdvReac Type Severity Reaction Status Date / Time No Known Allergies Allergy Verified 06/10/25 10:28 Plan Diagnosis/Plan: Unchanged I have reviewed the history and physical and performed a pertinent physical examination on my patient. No changes have occurred unless specified. Time Spent With Patient Time: Total time managing care of this patient today ____ minutes.
[2025-06-10 11:45] VITALS: BP 177/93; PULSE 85; RESP 14; TEMP 36.2; O2SAT 95
--- NOTE | 2025-06-10 11:45 | P.BOP_ITS ---
Brief Operative Note Date of Service: 06/10/25 Pre-op diagnosis: Postmenopausal bleeding Post-op diagnosis: same Procedure: Hysteroscopy D&C Surgeon: Shashank White MD Anesthesia: GLMA Was an Skating Rink Manager used for this Procedure?: No Estimated blood loss (mL): 0 Pathology: other (Endometrial Scrapping. Polyp) Condition: stable Disposition: PACU
[2025-06-10 11:50] VITALS: BP 179/92; PULSE 76; RESP 13; O2SAT 96
--- NOTE | 2025-06-10 11:52 | W.PM.OPN ---
Operative Note Operative Note Date of Service: 06/10/25 Narrative: Preop Diagnosis: Post Menopausal bleeding Operation: Diagnostic Hysteroscopy, Dilataion & Curettage Post Op Diagnosis: Same QBL: Minimal Anesthesia: GLMA Surgeon: Shashank White MD Insole Tack Puller Hand: None Complication: None Pathology: Endometrial Scrapings Procedure: The patient was put in the dorsal lithotomy position, scrubbed, and draped in the usual manner. A sterile speculum was inserted in the patient's vagina. The anterior lip of the cervix was grasped with a single tooth tenaculum. The cervix was dilated up to 5 mm, then the scope was inserted in the patient's uterus. Inspection revealed no evidence of endometrial polyp; the scope was removed from the endometrial cavity , sharp curettings was carried on with minimal to minimal amount of tissues retrieved. At the end of the procedure, all instruments were taken out of the patient uterine and vaginal cavity. The single tooth tenaculum was removed and homeostasis was assured using pressure,. The patient tolerated the procedure well and was transferred to the PACU in a stable condition.
[2025-06-10 11:55] VITALS: BP 148/110; PULSE 72; RESP 20; O2SAT 97
[2025-06-10 12:00] VITALS: BP 132/82; PULSE 71; RESP 24; O2SAT 97
[2025-06-10 12:10] VITALS: BP 138/85; PULSE 71; RESP 18; TEMP 36.4; O2SAT 97
== END 2025-06-10 12:45 | disposition home or self-care (01) ==
PROVIDERS: PCP Internal Medicine; Visit Provider Obstetrics & Gynecology
PROC: 0UDB8ZZ Extraction of Endometrium, Via Natural or Artificial Opening Endoscopic (ICD-10-PCS; CPT 58558; principal; 2025-06-10 11:50)
DX: N95.0 Postmenopausal bleeding (principal); Z87.42 Personal history of other diseases of the female genital tract; Z98.51 Tubal ligation status; D64.9 Anemia, unspecified; M06.9 Rheumatoid arthritis, unspecified; I10 Essential (primary) hypertension; N20.0 Calculus of kidney; K21.9 Gastro-esophageal reflux disease without esophagitis; E66.3 Overweight; Z68.36 Body mass index [BMI] 36.0-36.9, adult; Z90.49 Acquired absence of other specified parts of digestive tract
CPT/HCPCS: 58558; 81025; 88305; 88341; 88342; J0131; J1100; J1885; J1920; J2003; J2250; J2405; J2704; J3010

== ENCOUNTER → 2025-06-10 09:10 | Outpatient (BNV) | payer OTHER, SELFPAY | PROVIDERS: PCP Internal Medicine; Visit Provider Obstetrics & Gynecology | DX: N95.0 Postmenopausal bleeding (principal) | CPT/HCPCS: 58558 ==

== ENCOUNTER 2025-06-21 13:32 | Outpatient (AMB) | payer OTHER, SELFPAY ==
--- NOTE | 2025-06-21 13:32 | A.OFFVIS_ITS ---
Intake Visit Reasons: post op Allergies No Known Allergies Allergy (Verified 06/10/25 10:28) HPI Comments Details: The patient scheduled a telehealth visit post hysteroscopy D&C no complaints minimal vaginal bleeding no feverishness chills or abdominal pain. The patient presented with postmenopausal bleeding that is recurrent 03/16/2025 pelvic ultrasound showed the following: Uterus: The uterus is anteverted and measures 9 x 5 x 5 cm. Volume: 107 cc. The double wall endometrial thickness is 2 mm. The uterus is smooth in contour and has normal myometrial echogenicity. No visible fibroid. Adnexa: The ovaries are identified with flow on color Doppler interrogation.. Free fluid in the cul-de-sac. Right ovary measures 1 x 1 x 1 cm. Volume: 1 cc. Left ovary measures 2 x 2 x 1 cm. Volume: 2 cc. Bladder is fluid-filled. Bilateral ureters jets are present. Prevoid volume: 200 cc. Post void volume: 33 c 03/09/2024 last Co testing was negative 05/19/2025 office EMB done, the pathology showed the following: Endometrium, biopsy: Rare superficial strips of endometrium, endocervical and squamous epithelium with varying degrees of degenerative changes; mucoinflammatory material and blood; no atypia identified. See comment. Comment: The endometrium is sparse; consider resampling, as clinically appropriate. 06/10/25 hysteroscopy D&C was done The pathology showed the following: Addendum #1 The report is addended to include the immunohistochemical stain results performed on block A1 as follows: - p16: Patchy, non?block-type staining - Ki-67: Increased proliferative activity confined to the basal/parabasal layers The immunoprofile supports the absence of a high-grade squamous or glandular intraepithelial lesion. The final diagnosis is unchanged. Electronically Signed By: Jelena Pineda MD 06/17/25 1630 Diagnosis Endometrium, curettage: Benign squamous epithelium and endocervical glands, no endometrial tissue present; negative for dysplasia and carcinoma. See comment. COMMENT: Endometrial tissue is not present in the specimen. Repeat sampling is recommended if clinically indicated [facility] Medical History Vaginitis Neck pain Overweight Anemia Nephrolithiasis Urinary frequency Annual physical exam Rheumatoid arthritis GERD (gastroesophageal reflux disease) Hypertension Surgical History Hx of tubal ligation History of arthroscopy of right knee History of section Chronic cholecystitis due to cholelithiasis with choledocholithiasis History of laparoscopic cholecystectomy (05/08/20) History of lumpectomy of right breast deliv NOS-unsp Family History Father No problems noted. Mother HTN (hypertension) Osteoarthritis Diabetes Brother No problems noted. Sister No problems noted. Sister No problems noted. Son No problems noted. Son No problems noted. Son No problems noted. 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 Sexual orientation: Straight/Heterosexual Gender identity: Female Cognitive needs: No Hearing needs: No Vision needs: Yes Female Reproductive History Menstrual Age of Menarche: 10 Telehealth Telehealth Telehealth Platform: [email or web address] Location of provider rendering services: practice address Location of patient: address on file Patient Identification confirmed using: Name, : Yes Telehealth method: video Patient verbally consented to treatment: Yes Patient verbally consented to billing insurance company: Yes Patient informed of any privacy concerns related to visit: Yes Minutes spent on Phone/Video with Pt.: 4 Assessment & Plan Assessment & Plan (1) Postmenopausal bleeding: Comment: Recurrent with EMB insufficient for diagnosis Code(s): N95.0 - Postmenopausal bleeding Category: Medical Plan: Discussed with the patient the intraoperative findings, endometrial pathology s howing no endometrial tissue, explained to the patient has endometrial pathology including endometrial hyperplasia and/or malignancy or polyps has not been ruled out with a high accuracy. Recommended referral to [facility] for further management to rule out endometrial pathology. All questions answered, the patient verbalized understanding. Instructed the patient to call our office back in case a referral appointment is not scheduled, missed or canceled so that we will assist on rescheduling another appointment, the patient verbalized understanding agreed with the plan. I spent a total of 20 minutes reviewing the chart, talking to the patient via video and documenting in the medical record. Coding Level of Care Code Tele Est Pt Level 3 (69551) Diagnoses Postmenopausal bleeding N95.0
== END 2025-06-21 14:14 | disposition home or self-care (01) ==
LOC: HO.HWS 13:32
PROVIDERS: PCP Internal Medicine; Visit Provider Obstetrics & Gynecology
DX: N95.0 Postmenopausal bleeding (principal)
CPT/HCPCS: 99499